=== PATIENT | female | born 1960 ===

== ENCOUNTER 2017-01-13 16:34 | Observation (INO) | payer MEDICARE, OTHER ==
[2017-01-13 16:34] VITALS: PULSE 80
[2017-01-13 16:47] VITALS: BMI 41.1
[2017-01-13] MEDS ORDERED: Levalbuterol 1.25 MG/3 ML Inhal Soln UD IH STA (16:59)
[2017-01-13] MEDS ORDERED: Ipratropium 0.02% Inhal Soln (0.5 mg/2.5 ml) UD IH STA (16:59)
[2017-01-13] MEDS ORDERED: guaiFENesin-Codeine 100-10mg/5ml Syrup (5 ml) UD PO STA (16:59)
--- NOTE | 2017-01-13 17:00 | ED PDOC ---
Arrival/HPI - General Time Seen by Provider: 01/13/17 16:43 Historian: Patient - History of Present Illness Narrative History of Present Illness (Text): 01/13/17 16:53 A 56 year old female, whose past medical history includes CABG/CAD, CHF, COPD and bipolar disorder, presents to the emergency department complaining of a productive cough for the past 4 days. Patient notes clear phlegm, significant sob primarily with cough, and post-tussive chest discomfort. Patient was seen by Dr. Daniel, who prescribed Prednisone and Augmentin with mild relief. Patient denies any fever, chills, sore throat, runy nose, nausea, vomiting, abdominal pain, urinary symptoms, shortness of breath, lower extremity swelling , headache, dizziness or any other complaints. PMD: Dr. Osorio Time/Duration: Prior to Arrival Symptom Course: Unchanged Quality: Other Context: Home Past Medical History - Provider Review Nursing Documentation Reviewed: Yes - Infectious Disease Hx of Infectious Diseases: None - Tetanus Immunization Tetanus Immunization: Unknown - Past Medical History Past Medical History: No Previous - Cardiac Hx Cardiac Disorders: Yes (CAD, CABG x 4) - Pulmonary Hx Chronic Obstructive Pulmonary Disease (COPD): Yes - Neurological Hx Neurological Disorder: No HX Cerebrovascular Accident: No Hx Seizures: No Other/Comment: left foot numbness and "sometimes" swells since having quadruple bypass sx - HEENT Hx HEENT Disorder: Yes (sinusitis) Other/Comment: pt denies vocal cord mass - Renal Hx Renal Disorder: No - Endocrine/Metabolic Hx Endocrine Disorders: Yes - Hematological/Oncological Hx Blood Disorders: Yes Hx Cancer: Yes (left lumpectomy dx 3 yrs ago) Hx Chemotherapy: No Other/Comment: pt had radiation for left breast ca. Recent discharge with blood from left breast. - Integumentary Hx Dermatological Disorder: No Other/Comment: left breast swollen painful slight redness - Musculoskeletal/Rheumatological Hx Musculoskeletal Disorders: No Hx Falls: No - Gastrointestinal Hx Gastrointestinal Disorders: Yes (hemorrhoids, obese) Hx Constipation: Yes - Genitourinary/Gynecological Hx Genitourinary Disorders: No - Psychiatric Hx Psychophysiologic Disorder: Yes Hx Anxiety: Yes Hx Bipolar Disorder: Yes Hx Depression: Yes Hx Substance Use: No - Past Surgical History Past Surgical History: No Previous - Surgical History Hx Breast Biopsy: Yes (left) Hx Coronary Artery Bypass Graft: Yes - Anesthesia Hx Anesthesia: Yes Hx Anesthesia Reactions: No Hx Malignant Hyperthermia: No - Suicidal Assessment Feels Threatened In Home Enviroment: No Family/Social History - Physician Review Nursing Documentation Reviewed: Yes Family/Social History: No Known Family HX Smoking Status: Former Smoker Hx Alcohol Use: No Hx Substance Use: No Hx Substance Use Treatment: No Allergies/Home Meds Allergies/Adverse Reactions: Allergies No Known Allergies Allergy (Verified 04/13/16 00:42) Home Medications: Home Meds Medication Instructions Recorded Confirmed Metoprolol Tartrate [Lopressor] 50 mg PO BID 07/30/11 01/13/17 Montelukast [Singulair] 10 mg PO HS 03/27/13 01/13/17 lamoTRIgine [Lamictal] 100 mg PO BID 11/07/15 01/13/17 Albuterol/Ipratropium [Duoneb 3 3 ml IH Q4H PRN 11/08/15 01/13/17 mg/0.5 mg (3 ml) UD] Fluticasone/Salmeterol [Advair 1 500 INH DAILY 11/08/15 01/13/17 500-50 Diskus] QUEtiapine [Seroquel] 100 mg PO TID 04/13/16 01/13/17 Amlodipine Besylate [Norvasc] 5 mg PO HS 01/13/17 01/13/17 Amoxicillin/Clavulanate [Augmentin 1 tab PO BID 01/13/17 01/13/17 875 MG-125 MG] Cetirizine HCl [All Day Allergy] 10 mg PO DAILY 01/13/17 01/13/17 Clonazepam [Klonopin] 0.5 mg PO TID PRN 01/13/17 01/13/17 Furosemide [Lasix] 40 mg PO DAILY 01/13/17 01/13/17 Meclizine [Antivert] 12.5 mg PO TID 01/13/17 01/13/17 Prednisone [Deltasone] 20 mg PO 01/13/17 Spironolactone [Aldactone] 25 mg PO BID 01/13/17 01/13/17 Tiotropium [place] Inhaler 1.25 mcg INH DAILY 01/13/17 01/13/17 [Spiriva Inhalation Handihaler Device] Review of Systems - Physician Review All systems were reviewed & negative as marked: Yes - Review of Systems Constitutional: absent: Fevers, Night Sweats ENT: absent: Sore Throat, Rhinorrhea Respiratory: SOB, Cough, Sputum Cardiovascular: Chest Pain (post-tussive). absent: Edema Gastrointestinal: absent: Abdominal Pain, Nausea, Vomiting Genitourinary Female: absent: Dysuria, Frequency, Hematuria Neurological: absent: Headache, Dizziness Physical Exam Vital Signs Temp Pulse Resp BP Pulse Ox 01/13/17 17:16 98.3 F 60 18 147/77 97 01/13/17 16:40 98 F 66 18 151/80 H 97 Temperature: Afebrile Blood Pressure: Normal Pulse: Regular Respiratory Rate: Normal Appearance: Positive for: Well-Appearing, Non-Toxic, Comfortable Pain Distress: None Mental Status: Positive for: Alert and Oriented X 3 - Systems Exam Head: Present: Atraumatic, Normocephalic Pupils: Present: PERRL Conjunctiva: Present: Normal Mouth: Present: Moist Mucous Membranes Pharnyx: Present: Normal. No: ERYTHEMA, EXUDATE Neck: Present: Normal Range of Motion Respiratory/Chest: Present: Clear to Auscultation, Good Air Exchange. No: Respiratory Distress, Accessory Muscle Use Cardiovascular: Present: Regular Rate and Rhythm, Normal S1, S2. No: Murmurs Abdomen: Present: Normal Bowel Sounds. No: Tenderness, Distention, Peritoneal Signs Back: Present: Normal Inspection Upper Extremity: Present: Normal Inspection. No: Cyanosis, Edema Lower Extremity: Present: Normal Inspection. No: Edema Neurological: Present: GCS=15, CN II-XII Intact, Speech Normal Skin: Present: Warm, Dry, Normal Color. No: Rashes Psychiatric: Present: Alert, Oriented x 3, Normal Insight, Normal Concentration Medical Decision Making ED Course and Treatment: 01/13/17 16:53 Impression: A 56 year old female with productive cough. Patient notes post-tussive chest discomfort. Plan: -- Chest xray -- EKG -- Labs -- Robitussin, Atrovent, Xopenex and Solumedrol -- Reassess and disposition Progress Notes: Report Date : 01/13/2017 18:41:23 Procedure: Chest xray Dictator : Rhina Navarro MD IMPRESSION: No active pulmonary disease. 01/13/17 19:28 Patient with noted history. Given steroids nebs with moderate improvement. CXR is unremarkable. Labs are showing leukocytosis with WBC at 16.5K, possibly related to prednsone use. She is already on antibiotics - will add blood cultures and switch antibiotics for copd/bronchitis. Troponin is also indeterminate, so will place on tele. Discussed with Dr. Osorio, who said to place on the hospitalist service - discussed with Dr. Donahue. - Lab Interpretations Lab Results: 01/13/17 17:22 01/13/17 17:22 Lab Results 01/13/17 17:22: Sodium 135, Potassium 3.3 L, Chloride 97 L, Carbon Dioxide 26, Anion Gap 15, BUN 32 H, Creatinine 1.2, Est GFR ( Amer) 56, Est GFR (Non- Af Amer) 46, Random Glucose 96, Calcium 10.6 H, Magnesium 1.9, Total Bilirubin 0.7, AST 28, ALT 41, Alkaline Phosphatase 104, Lactate Dehydrogenase 522, Total Creatine Kinase 281 H, CK-MB (CK-2) 2.1, CK-MB (CK-2) % Cancelled, Troponin I 0.03 D, NT-Pro-B Natriuret Pep 305, Total Protein 7.6, Albumin 4.6, Globulin 3.0, Albumin/Globulin Ratio 1.5, Lipase 520 H 01/13/17 17:22: PT 11.6, INR 1.06, APTT 30.6 01/13/17 17:22: WBC 16.5 H D, RBC 4.03, Hgb 11.9 L, Hct 35.8 L, MCV 88.8, MCH 29.5, MCHC 33.2, RDW 15.2 H, Plt Count 269, MPV 10.3, Gran % 76.9 H, Lymph % ( Auto) 14.3 L, [place] % (Auto) 6.9 H, Eos % (Auto) 1.5, Baso % (Auto) 0.4, Gran # 12.70 H, Lymph # 2.4, [facility] # 1.1 H, Eos # 0.2, Baso # 0.07 - RAD Interpretation Radiology Orders: 01/13/17 16:56 CHEST TWO VIEWS (PA/LAT) [RAD] Stat - EKG Interpretation EKG Interpretation (Text): 01/13/17 19:36 NSR @ 60 with LVH with QRS at 126 with strain pattern with more prominent ST dep laterally c/w previous on 04/13/16. Interpreted by ED Physician: Yes Type: 12 lead EKG - Medication Orders Current Medication Orders: Levofloxacin/Dextrose (Levaquin 750mg) 750 mg in 150 mls @ 100 mls/hr IVPB STAT STA Stop: 01/13/17 20:04 Last Admin: 01/13/17 19:01 Dose: 100 mls/hr eMAR Start Stop Document 01/13/17 19:01 [email or web address] (Rec: 01/13/17 19:01 [email or web address] [id number]) Intravenous Solution Start Date 01/13/17 Start Time 19:01 End Date 01/13/17 Levalbuterol HCl (Xopenex) 1.25 mg IH Q4H ARTEMIO Last Admin: 01/13/17 19:01 Dose: 1.25 mg Discontinued Medications Guaifenesin/Codeine Phosphate (Robitussin W/Codeine) 10 ml PO ONCE STA Stop: 01/13/17 17:00 Last Admin: 01/13/17 17:12 Dose: 10 ml Ipratropium [place] (Atrovent) 0.5 mg IH STAT STA Stop: 01/13/17 17:00 Last Admin: 01/13/17 17:12 Dose: 0.5 mg Levalbuterol HCl (Xopenex) 1.25 mg IH STAT STA Stop: 01/13/17 17:00 Last Admin: 01/13/17 17:12 Dose: 1.25 mg Methylprednisolone (Solu-Medrol) 125 mg IVP STAT STA Stop: 01/13/17 16:58 Last Admin: 01/13/17 17:12 Dose: 125 mg IVP Administration Document 01/13/17 17:12 OCS (Rec: 01/13/17 17:12 OCS [id number]) Charges for Administration # of IVP Administrations 1 Potassium Chloride (K-Dur 20 Meq Er Tab) 40 meq PO STAT STA Stop: 01/13/17 17:50 Last Admin: 01/13/17 17:58 Dose: 40 meq - Scribe Statement The provider has reviewed the documentation as recorded by the Lisaibjose armando Morales Provider Scribe Attestation: All medical record entries made by the Scribe were at my direction and personally dictated by me. I have reviewed the chart and agree that the record accurately reflects my personal performance of the history, physical exam, medical decision making, and the department course for this patient. I have also personally directed, reviewed, and agree with the discharge instructions and disposition. Disposition/Present on Arrival - Present on Arrival Any Indicators Present on Arrival: No History of DVT/PE: No History of Uncontrolled Diabetes: No Urinary Catheter: No History Surgical Site Infection Following: None - Disposition Have Diagnosis and Disposition been Completed?: Yes Diagnosis: Chest pain, COPD exacerbation Disposition: HOSPITALIZED Disposition Time: 18:20 Patient Plan: Observation, Telemetry Condition: FAIR
[2017-01-13 17:28] LABS: BASO # 0.07 K/mm3 (0.0-2.0); BASO % 0.4 % (0.0-3.0); EOS # 0.2 (0.0-0.7); EOS % 1.5 % (1.5-5.0); GRAN # 12.7 (1.4-6.5); GRAN % 76.9 % (50.0-68.0); HEMATOCRIT 35.8 % (36.0-48.0); LYMPH # 2.4 (1.2-3.4); LYMPH % 14.3 % (22.0-35.0); MEAN CELL VOLUME 88.8 fl (80.0-105.0); MEAN CORPUSCULAR HEMOGLOBIN 29.5 pg (25.0-35.0); MEAN CORPUSCULAR HGB CONC 33.2 g/dl (31.0-37.0); MEAN PLATELET VOLUME 10.3 fl (7.0-11.0); MONO # 1.1 (0.1-0.6); MONO % 6.9 % (1.0-6.0); RED CELL DISTRIBUTION WIDTH 15.2 % (11.5-14.5); WHITE BLOOD COUNT 16.5 10^3/ul (4.5-11.0)
[2017-01-13 17:40] LABS: INR 1.06 (0.93-1.08)
[2017-01-13 17:41] LABS: ALB/GLOB RATIO 1.5 (1.1-1.8); BILIRUBIN,TOTAL 0.7 mg/dL (0.2-1.3); CALCIUM 10.6 mg/dL (8.4-10.5); MAGNESIUM 1.9 mg/dL (1.7-2.2); PARTIAL THROMBOPLASTIN TIME 30.6 Seconds (25.1-36.5); POTASSIUM 3.3 mmol/L (3.6-5.0); TOTAL PROTEIN 7.6 g/dL (5.8-8.3)
[2017-01-13] MEDS ORDERED: Potassium Chloride 20 mEq ER Tab PO STA (17:49)
[2017-01-13 17:52] LABS: TROPONIN I 0.03 ng/mL
[2017-01-13] MEDS ORDERED: levoFLOXacin 750 mg in D5W 750 MG/150 ML BAG IVPB STA (18:35)
--- NOTE | 2017-01-13 18:42 | RAD ---
HISTORY: COMPARISON: 04/13/2016. TECHNIQUE: Chest PA and lateral FINDINGS: LINES AND TUBES: None. LUNG AND PLEURA: The lungs are well inflated and clear. HEART AND MEDIASTINUM: The heart is not enlarged. Status post CABG. The hilar and mediastinal contours are within normal limits. SKELETAL STRUCTURES: The bony structures are within normal limits for the patient's age. VISUALIZED UPPER ABDOMEN: Normal. OTHER FINDINGS: None. IMPRESSION: No active pulmonary disease.
[2017-01-13] MEDS: Levalbuterol 1.25 MG/3 ML Inhal Soln UD IH SCH (19:01)
[2017-01-13] MEDS ORDERED: Potassium Chloride 40 mEq/30 ml LIQ UD PO STA (20:30)
[2017-01-13 21:17] LABS: CHOLESTEROL 264 mg/dL (130-200)
--- NOTE | 2017-01-13 21:18 | CP.PCM.HP ---
<Maiocl Moffett - Last Filed: 01/14/17 00:51> History of Present Illness - History of Present Illness History of Present Illness: IM H&P for Hospitalist Service CC: Coughing fits and post-tussive chest pain HPI: This is a 56 yo F with PMH of CAD/Quad-bypass CABG s/p stenting, CHF, COPD, HTN, Breast Ca s/p lumpectomy and Radiation therapy, and psych hx ( including bipolar disorder) who [place] [facility] complaint of persistent productive cough and post-tussive chest pain x5 days. Patient reports initial cough as productive of green mucous and intermittent blood, but after seeing her Pulmonolgist (Dr. Daniel) 4 days ago, at which point she was started on Augmentin and Prednisone, the mucous became clear, and she denies any further hemoptysis. Currently, her only complaint is paroxysmal coughs and post- tussive chest pain, along the sternal midline. Denies shortness of breath, post -tussive emesis, sick contacts, fevers/chills, nausea/emesis, diarrhea/ constipation, or focal weakness/paresthesias. All other ROS in 12-point system review negative. PMH: As above PSH: CABG, Cardiac stents, Breast Ca lumpectomy (5 yrs prior) FHx: HTN, Breast Ca SHx: admits former tobacco (1ppd cigarettes x 20yrs, quit ~5 years ago), denies alcohol/illicits/IVDA PMD: Dr. Osorio Present on Admission - Present on Admission Any Indicators Present on Admission: No History of DVT/PE: No History of Uncontrolled Diabetes: No Urinary Catheter: No Review of Systems - Review of Systems All systems: reviewed and no additional remarkable complaints except (as per HPI ) Past Patient History - Infectious Disease Hx of Infectious Diseases: None - Tetanus Immunizations Tetanus Immunization: Unknown - Past Social History Smoking Status: Former Smoker - CARDIAC Hx Cardiac Disorders: Yes (CAD, CABG x 4) - PULMONARY Hx Chronic Obstructive Pulmonary Disease (COPD): Yes - NEUROLOGICAL Hx Neurological Disorder: No HX Cerebrovascular Accident: No Hx Seizures: No Other/Comment: left foot numbness and "sometimes" swells since having quadruple bypass sx - HEENT Hx HEENT Problems: Yes (sinusitis) Other/Comment: pt denies vocal cord mass - RENAL Hx Chronic Kidney Disease: No - ENDOCRINE/METABOLIC Hx Endocrine Disorders: Yes - HEMATOLOGICAL/ONCOLOGICAL Hx Blood Disorders: Yes Hx Cancer: Yes (left lumpectomy dx 3 yrs ago) Hx Chemotherapy: No Other/Comment: pt had radiation for left breast ca. Recent discharge with blood from left breast. - INTEGUMENTARY Hx Dermatological Problems: No Other/Comment: left breast swollen painful slight redness - MUSCULOSKELETAL/RHEUMATOLOGICAL Hx Musculoskeletal Disorders: No Hx Falls: No - GASTROINTESTINAL Hx Gastrointestinal Disorders: Yes (hemorrhoids, obese) Hx Constipation: Yes - GENITOURINARY/GYNECOLOGICAL Hx Genitourinary Disorders: No - PSYCHIATRIC Hx Psychophysiologic Disorder: Yes Hx Anxiety: Yes Hx Bipolar Disorder: Yes Hx Depression: Yes Hx Substance Use: No - SURGICAL HISTORY Hx Breast Biopsy: Yes (left) Hx Coronary Artery Bypass Graft: Yes - ANESTHESIA Hx Anesthesia: Yes Hx Anesthesia Reactions: No Hx Malignant Hyperthermia: No Meds Allergies/Adverse Reactions: Allergies Allergy/AdvReac Type Severity Reaction Status Date / Time No Known Allergies Allergy Verified 04/13/16 00:42 Physical Exam - Constitutional Appears: Well, Non-toxic, No Acute Distress, Chronically Ill - Head Exam Head Exam: ATRAUMATIC, NORMAL INSPECTION, NORMOCEPHALIC - Eye Exam Eye Exam: EOMI, Normal appearance. absent: Conjunctival injection, Scleral icterus Pupil Exam: absent: Irregular, Unequal - ENT Exam ENT Exam: Mucous Membranes Moist - Neck Exam Neck exam: Positive for: Full Rom. Negative for: Lymphadenopathy, Thyromegaly - Respiratory Exam Respiratory Exam: Chest Wall Tenderness (midline at and immediately superior to sternum/xiphoid process, statically tender but worse with coughing and/or palpation), Decreased Breath Sounds (moderately decreased breath sounds in all lopez, likely a component of body habitus), Clear to Auscultation Bilateral, Prolonged Expiratory Phase. absent: Accessory Muscle Use, Rales, Rhonchi, Wheezes, Stridor - Cardiovascular Exam Cardiovascular Exam: REGULAR RHYTHM, RRR, +S1, +S2. absent: Bradycardia, Tachycardia, Irregular Rhythm, JVD, +S4 - GI/Abdominal Exam GI & Abdominal Exam: Normal Bowel Sounds, Soft. absent: Diminished Bowel Sounds , Distended, Firm, Hyperactive Bowel Sounds, Hypoactive Bowel Sounds, Rigid, Tenderness - Extremities Exam Extremities exam: Positive for: normal inspection. Negative for: calf tenderness, joint swelling, pedal edema, tenderness - Neurological Exam Neurological exam: Alert, CN II-XII Intact, Oriented x3 - Psychiatric Exam Psychiatric exam: Normal Affect, Normal Mood - Skin Skin Exam: Dry, Intact, Normal Color, Warm Results - Vital Signs Recent Vital Signs: Last Vital Signs Temp 98.3 F 01/13/17 17:16 Pulse 60 01/13/17 17:16 Resp 18 01/13/17 17:16 BP 147/77 01/13/17 17:16 Pulse Ox 97 01/13/17 17:16 - Labs Result Diagrams: 01/13/17 17:22 01/13/17 17:22 Assessment & Plan - Assessment and Plan (Free Text) Assessment: This is a 56 yo F with PMH of CAD/Quad-bypass CABG s/p stenting, CHF, COPD, HTN, Breast Ca s/p lumpectomy and Radiation therapy, and psych hx ( including bipolar disorder) who [place] [facility] complaint of persistent productive cough and post-tussive chest pain x5 days. She is being admitted for suspected CHF exacerbation vs ACS in the setting of significant past cardiac disease. Plan: CAD/Quad-bypass CABG s/p stenting, CHF, COPD, HTN, Breast Ca s/p lumpectomy and Radiation therapy, and psych hx (including bipolar disorder) 1) Cough and post-tussive chest pain -pneumonia vs Upper respiratory infection (Viral vs bacterial) vs bronchitis vs ACS vs CHF exacerbation vs COPD exacerbation vs PE -No infiltrate or effusion notable on CXR in ED -Leukocytosis of 16.5, but was placed on steroids 4 days prior; in setting of afebrile pt without clear source of infection this leukocytosis more likely represents reactive leukocytosis 2/2 steroid use -trop 0.03 in the ED, trending 2 more q8h -EKG in ED notable for NSR at 60 bpm with QRS widening; when compared to most recent EKG from last admission (Mar 2016), appears unchanged; will repeat EKG in AM -Less likely CHF exacerbation, no fluid overload noted on CXR, BNP 305 -Reproducible chest wall tenderness, so less likely pain from ACS, more likely costochondritis from coughing spells; may be abdominal/pancreatitis component as well given Lipase 520, but no acute abdominal tenderness on palpation, no reported nausea/emesis; repeat Lipase in AM and monitor -Given recent productive cough with improved sputum on 4 days of augmentin, likely COPD exacerbation and/or upper respiratory infection -Given cancer history, concern for possible PE; D-dimer likely to be elevated already in setting of prior cancer and acute infection/chronic cough; Wells Score 3 for PE; Cr slightly elevated at 1.2, may benefit from V/Q instead of CTA , will defer to day team to decide -Started on Rocephin and Zithromax for G(-) and atypical coverage, also covers for possible COPD exacerbation -Continue Xopenex q4 micky, continue home singulair/spiriva/aldactone, continue predinsone 20mg PO daily -Tessalon Perles PRN for cough -Pulm (Dr. Daniel) consulted, appreciate all recs 2) Hx Breast Ca -s/p lumpectomy and radiation therapy 5 yrs prior (as per pt) -follows Dr. Barnett as outpt, was scheduled for appointment in office 01/14/17 , will consult 3) Hx CAD with CABG and stenting, Hx CHF -continue home metoprolol, aldactone, amlodpine, lasix 4) HTN -continue home amlodpine 5) Psych hx including bipolar -continue home Seroquel, Klonopin, and Lamictal Dispo: Telemetry obs, pending Pulm and Heme-onc assessment, pending possible CTA FEN: Heart-healthy Access: Peripheral IV Consults: Heme-onc, Pulm Ppx: Protonix for GI, SCDs for DVT Patient seen, reviewed, and discussed with attending, Dr. Donahue. Decision To Admit - Pt Status Changed To: Hospital Disposition Of: Observation - . Bed Request Type: Telemetry <Akiko Donahue - Last Filed: 01/14/17 03:02> Results - Vital Signs Recent Vital Signs: Last Vital Signs Temp 98.4 F 01/14/17 00:01 Pulse 50 L 01/14/17 02:00 Resp 20 01/14/17 00:01 BP 158/78 H 01/14/17 00:01 Pulse Ox 96 01/14/17 00:01 - Labs Result Diagrams: 01/13/17 17:22 01/13/17 17:22 Labs: Laboratory Results - last 24 hr 01/13/17 01/14/17 22:30 01:40 Troponin I 0.01 D Urine Color Yellow Urine Appearance Clear Urine pH 6.5 Ur Specific [place] 1.010 Urine Protein 100 H Urine Glucose (UA) Negative Urine Ketones Negative Urine Blood Small H Urine Nitrate Negative Urine Bilirubin Negative Urine Urobilinogen 0.2 Ur Leukocyte Esterase Trace H Urine RBC 1 - 3 Urine WBC 1 - 3 Ur Epithelial Cells 3 - 4 Urine Bacteria Few Attending/Attestation - Attestation I have personally seen and examined this patient.: Yes I have fully participated in the care of the patient.: Yes I have reviewed all pertinent clinical information: Yes Notes (Text): 01/14/17 03:00 Patient was seen when she was in the ER. Agree with history, physical examination, assessment and plan. My impressions would be: Chest pain. Dyspnea. Cough. Bronchitis. Leukocytosis. Borderline anemia. CAD. CHF. COPD. Hx Breast cancer. Hx radiation therapy. S/P CABG. Obesity. Hypokalemia. Dehydration. Elevated CK. Elevated Lipase. Family history Pancreatic cancer. Ex smoker. History . History partial hystrectomy. History lumpectomy breast. Abnormal EKG-T inversion in V5,V6. History [place]. History coronary stent placement. HTN.
[2017-01-13] MEDS: Azithromycin 500MG/NS 250ml 500 MG/250 ML BAG IVPB SCH (22:09)
[2017-01-13] MEDS ORDERED: Influenza Vaccine 60 mcg/0.5 mL SYR (4YR UP) IM ONE (22:21)
[2017-01-13] MEDS ORDERED: Pneumococcal 23-Valent Vaccine IM ONE (22:21)
[2017-01-13 22:53] LABS: PH,URINE 6.5 (4.7-8.0); URINE BILIRUBIN NEGATIVE (NEGATIVE); URINE BLOOD SMALL (NEGATIVE); URINE GLUCOSE (UA) NEGATIVE (NEGATIVE); URINE KETONE NEGATIVE (NEGATIVE); URINE LEUKOCYTE ESTERASE TRACE Leu/uL (NEGATIVE); URINE PROTEIN 100 mg/dL (<30 mg/dL); URINE UROBILINOGEN 0.2 E.U./dL (<1 E.U./dL)
[2017-01-13 23:01] LABS: URINE APPEARANCE CLEAR (CLEAR); URINE COLOR YELLOW (YELLOW)
[2017-01-13 23:12] LABS: URINE BACTERIA FEW (NEG)
[2017-01-13] MEDS: cefTRIAXone 2 GM IN NS 2 GM/100 ML BAG IVPB SCH (23:54)
[2017-01-14 00:29] VITALS: RESP 20; O2SAT 96
[2017-01-14] MEDS: Levalbuterol 1.25 MG/3 ML Inhal Soln UD IH SCH ×5 (01:00→16:12)
[2017-01-14] MEDS: Pantoprazole 40 mg EC Tab PO SCH ×2 (05:44→17:45)
[2017-01-14 06:29] LABS: BASO # 0.04 K/mm3 (0.0-2.0); BASO % 0.2 % (0.0-3.0); GRAN # 15.93 (1.4-6.5); GRAN % 88.7 % (50.0-68.0); LYMPH # 1.4 (1.2-3.4); LYMPH % 7.5 % (22.0-35.0); MEAN CORPUSCULAR HEMOGLOBIN 29.3 pg (25.0-35.0); MEAN CORPUSCULAR HGB CONC 32.5 g/dl (31.0-37.0); MEAN PLATELET VOLUME 10.2 fl (7.0-11.0); MONO # 0.6 (0.1-0.6); MONO % 3.6 % (1.0-6.0); RED CELL DISTRIBUTION WIDTH 15.3 % (11.5-14.5)
[2017-01-14 06:37] LABS: ALB/GLOB RATIO 1.5 (1.1-1.8); ALKALINE PHOSPHATASE 90 U/L (38-126); ALT/SGPT 47 U/L (7-56); AST/SGOT 26 U/L (14-36); BILIRUBIN,TOTAL 0.7 mg/dL (0.2-1.3); BLOOD UREA NITROGEN 30 mg/dL (7-21); CALCIUM 11.3 mg/dL (8.4-10.5); CARBON DIOXIDE 27 mmol/L (21-33); CHLORIDE 101 mmol/L (95-110); GFR AFRICAN-AMERICAN > 60; GLUCOSE,RANDOM 146 mg/dL (70-110); LIPASE 470 U/L (23-300); PHOSPHOROUS 2.4 mg/dL (2.5-4.5); POTASSIUM 4.1 mmol/L (3.6-5.0); SODIUM 139 mmol/L (132-148); TOTAL PROTEIN 7.7 g/dL (5.8-8.3)
[2017-01-14] MEDS ORDERED: Potassium Phosphate 3 mmol/ml Inj IV ONE (08:00)
[2017-01-14] MEDS ORDERED: Potassium Phosphate 15 MMOLE in Sodium Chloride 0.9% 250 ML IVPB ONE (08:15)
[2017-01-14] MEDS ORDERED: Albuterol-Ipratrop 3 mg / 0.5 (3 ml) UD IH PRN (08:53)
--- NOTE | 2017-01-14 08:59 | CARD ---
APPROVED REPORT EKG Measurement Heart [id number] IL 186P [id number] <Conclusion> Normal sinus rhythm LBBB STTW changes No change
--- NOTE | 2017-01-14 09:42 | RAD ---
HISTORY: cough, chest pain, f/u COMPARISON: 01/13/2017 FINDINGS: LUNGS: No active pulmonary disease. PLEURA: No significant pleural effusion identified, no pneumothorax apparent. CARDIOVASCULAR: Mild cardiomegaly. OSSEOUS STRUCTURES: Sternal wires VISUALIZED UPPER ABDOMEN: Normal. OTHER FINDINGS: None. IMPRESSION: No active disease.
[2017-01-14] MEDS ORDERED: metOLazone 2.5 MG TAB PO SCH (10:00)
[2017-01-14] MEDS ORDERED: [UNRECOGNIZED DRUG - REMARK] PO SCH (10:00)
[2017-01-14] MEDS ORDERED: metOLazone 5 MG TAB PO SCH (10:00)
[2017-01-14] MEDS ORDERED: Tiotropium 18 mcg Cap For Inhalation INH SCH (10:00)
[2017-01-14] MEDS ORDERED: Fluticasone-Salmeterol 500-50mcg Diskus INH SCH (10:00)
[2017-01-14] MEDS: Azithromycin 500MG/NS 250ml 500 MG/250 ML BAG IVPB SCH (10:21)
--- NOTE | 2017-01-14 10:36 | CP.PCM.CON ---
History of Present Illness - History of Present Illness History of Present Illness: Heme/Onc Consult Note for Zahra Rivas PGY2 Reason for consult: Hx of breast Ca This is a 56yo Female with past medical history of bipolar disorder, CAD s/p stents, CABG, CHF, COPD, HTN, breast cancer (ER+/WI+/HER2-) s/p lumpectomy and radiation who was admitted for chest pain. Patient was having productive and persistent cough which was giving her pain. Patient reports she was having cough with green sputum and congestion for [address] Daniel 4 days ago who gave her Prednisone and Augmentin. She reports feeling better since then , but has had a dry persistent cough since then. She denies hematemesis, shortness of breath, numbness/tingling, nausea/vomiting/diarrhea, fever or chills. Patient had breast cancer in L breast diagnosed in 2011. She had a lumpectomy. After this, she was having some drainage in her L breast. A biopsy was done in 2014 which showed fibro-fatty tissue. Patient is somewhat non- compliant with her medications. She has not been taking Tamoxifen as outpatient despite being (ER+/WI+/HER2-). She was supposed to have an appointment with Dr. Barnett today. She reports her L breast feels heavy, but has not had any drainage. Her last mammogram and breast ultrasound was in February 2015 which was negative for malignancy. Past medical history: bipolar disorder, CAD s/p stents, CABG, CHF, COPD, HTN, breast cancer (ER+/WI+/HER2-) s/p lumpectomy and radiation Past surgical history: L breast lumpectomy 2011 and biopsy 2014, CABG, cardiac stents Home meds: As per [facility] Allergies: NKDA Social history: Lives with family, denies EtOH or drug use. Former smoker (quit 5yrs ago) PMD: Dr. Osorio. Review of Systems - Review of Systems All systems: reviewed and no additional remarkable complaints except Review of Systems: + cough, chest pain Past Patient History - Infectious Disease Hx of Infectious Diseases: None - Tetanus Immunizations Tetanus Immunization: Unknown - Past Social History Smoking Status: Former Smoker Alcohol: None Drugs: Denies Home Situation {Lives}: With Family - CARDIAC Hx Cardiac Disorders: Yes (CAD, CABG x 4) - PULMONARY Hx Chronic Obstructive Pulmonary Disease (COPD): Yes - NEUROLOGICAL Hx Neurological Disorder: No HX Cerebrovascular Accident: No Hx Seizures: No Other/Comment: left foot numbness and "sometimes" swells since having quadruple bypass sx - HEENT Hx HEENT Problems: Yes (sinusitis) Other/Comment: pt denies vocal cord mass - RENAL Hx Chronic Kidney Disease: No - ENDOCRINE/METABOLIC Hx Endocrine Disorders: Yes - HEMATOLOGICAL/ONCOLOGICAL Hx Blood Disorders: Yes Hx Cancer: Yes (left lumpectomy dx 3 yrs ago) Hx Chemotherapy: No Other/Comment: pt had radiation for left breast ca. Recent discharge with blood from left breast. - INTEGUMENTARY Hx Dermatological Problems: No Other/Comment: left breast swollen painful slight redness - MUSCULOSKELETAL/RHEUMATOLOGICAL Hx Musculoskeletal Disorders: No Hx Falls: No - GASTROINTESTINAL Hx Gastrointestinal Disorders: Yes (hemorrhoids, obese) Hx Constipation: Yes - GENITOURINARY/GYNECOLOGICAL Hx Genitourinary Disorders: No - PSYCHIATRIC Hx Psychophysiologic Disorder: Yes Hx Anxiety: Yes Hx Bipolar Disorder: Yes Hx Depression: Yes Hx Substance Use: No - SURGICAL HISTORY Hx Breast Biopsy: Yes (left) Hx Coronary Artery Bypass Graft: Yes - ANESTHESIA Hx Anesthesia: Yes Hx Anesthesia Reactions: No Hx Malignant Hyperthermia: No Meds Allergies/Adverse Reactions: Allergies Allergy/AdvReac Type Severity Reaction Status Date / Time No Known Allergies Allergy Verified 04/13/16 00:42 - Medications Medications: Current Medications Albuterol/Ipratropium (Duoneb 3 Mg/0.5 Mg (3 Ml) Ud) 3 ml IH Q2H PRN PRN Reason: Shortness of Breath Amlodipine Besylate (Norvasc) 5 mg PO HS [facility] Last Admin: 01/13/17 22:07 Dose: 5 mg Arformoterol Tartrate (Brovana) 15 mcg IH [id number] [facility] Atorvastatin Calcium (Lipitor) 40 mg PO DIN [facility] Benzonatate (Tessalon Perles) 100 mg PO TID PRN PRN Reason: Cough Last Admin: 01/14/17 00:02 Dose: 100 mg Budesonide (Pulmicort Respules) 1 mg IH [id number] [facility] Clonazepam (Klonopin) 0.5 mg PO TID PRN; Protocol PRN Reason: Anxiety Last Admin: 01/13/17 23:22 Dose: 0.5 mg Furosemide (Lasix) 40 mg PO DAILY [facility] Ceftriaxone Sodium (Rocephin 2 Gm Ivpb) 2 gm in 100 mls @ 100 mls/hr IVPB DAILY [facility] PRN Reason: Protocol Last Admin: 01/13/17 23:54 Dose: 100 mls/hr Azithromycin (Zithromax 500mg In Ns) 500 mg in 250 mls @ 167 mls/hr IVPB DAILY [facility] PRN Reason: Protocol Last Admin: 01/13/17 22:09 Dose: 167 mls/hr Potassium Phosphate 15 mmole/ (Sodium Chloride) 255 mls @ 42.5 mls/hr IVPB ONCE ONE Stop: 01/14/17 14:14 Lamotrigine (Lamictal) 100 mg PO BID [facility] PRN Reason: Protocol Last Admin: 01/13/17 22:09 Dose: 100 mg Levalbuterol HCl (Xopenex) 1.25 mg IH Q4H [facility] Last Admin: 01/14/17 07:24 Dose: 1.25 mg Loratadine (Claritin) 10 mg PO DAILY [facility] Meclizine HCl (Antivert) 12.5 mg PO TID PRN PRN Reason: Dizziness Metolazone (Zaroxolyn) 5 mg PO DAILY [facility] Metoprolol Tartrate (Lopressor) 50 mg PO BRKDIN [facility] Montelukast Sodium (Singulair) 10 mg PO HS [facility] Last Admin: 01/13/17 22:04 Dose: 10 mg Pantoprazole Sodium (Protonix Ec Tab) 40 mg PO 0600,1600 [facility] Last Admin: 01/14/17 05:44 Dose: 40 mg Prednisone (Prednisone Tab) 20 mg PO DAILY [facility] Quetiapine Fumarate (Seroquel) 100 mg PO TID [facility] PRN Reason: Protocol Spironolactone (Aldactone) 25 mg PO BID [facility] Last Admin: 01/13/17 22:04 Dose: 25 mg Tiotropium [place] (Spiriva) 18 mcg INH DAILY [facility] Physical Exam - Constitutional Appears: No Acute Distress - Head Exam Head Exam: ATRAUMATIC, NORMAL INSPECTION, NORMOCEPHALIC - Eye Exam Eye Exam: Normal appearance, PERRL Pupil Exam: PERRL - ENT Exam ENT Exam: Mucous Membranes Moist - Respiratory Exam Respiratory Exam: Clear to Auscultation Bilateral, NORMAL BREATHING PATTERN. absent: Rales, Wheezes - Cardiovascular Exam Cardiovascular Exam: REGULAR RHYTHM, +S1, +S2. absent: Gallop, Rubs, Systolic Murmur - GI/Abdominal Exam GI & Abdominal Exam: Normal Bowel Sounds, Soft. absent: Rebound, Rigid, Tenderness - Exam Additional comments: Breast exam: L breast taut, no drainage noted, dense tissue. No distinct masses noted. Nontender. R breast within normal limits - Extremities Exam Extremities exam: Positive for: pedal edema (+ 1 bilaterally ) - Neurological Exam Neurological exam: Alert, CN II-XII Intact, Oriented x3 - Psychiatric Exam Psychiatric exam: Normal Affect, Normal Mood - Skin Skin Exam: Dry, Warm Results - Vital Signs Recent Vital Signs: Last Vital Signs Temp 98.9 F 01/14/17 06:00 Pulse 85 01/14/17 06:00 Resp 20 01/14/17 06:00 BP 153/81 H 01/14/17 06:00 Pulse Ox 96 01/14/17 06:00 - Labs Result Diagrams: 01/14/17 05:30 01/14/17 05:30 Labs: Laboratory Results - last 24 hr 01/13/17 01/14/17 01/14/17 22:30 01:40 05:30 WBC 18.0 H RBC 4.00 Hgb 11.7 L Hct 36.0 MCV 90.0 MCH 29.3 MCHC 32.5 RDW 15.3 H Plt Count 261 MPV 10.2 Gran % 88.7 H Lymph % (Auto) 7.5 L [place] % (Auto) 3.6 Eos % (Auto) 0.0 L Baso % (Auto) 0.2 Gran # 15.93 H Lymph # 1.4 [place] # 0.6 Eos # 0.0 Baso # 0.04 Sodium Potassium Chloride Carbon Dioxide Anion Gap BUN Creatinine Est GFR ( Amer) Est GFR (Non-Af Amer) Random Glucose Calcium Phosphorus Magnesium Total Bilirubin AST ALT Alkaline Phosphatase Troponin I 0.01 D Total Protein Albumin Globulin Albumin/Globulin Ratio Lipase Urine Color Yellow Urine Appearance Clear Urine pH 6.5 Ur Specific [place] 1.010 Urine Protein 100 H Urine Glucose (UA) Negative Urine Ketones Negative Urine Blood Small H Urine Nitrate Negative Urine Bilirubin Negative Urine Urobilinogen 0.2 Ur Leukocyte Esterase Trace H Urine RBC 1 - 3 Urine WBC 1 - 3 Ur Epithelial Cells 3 - 4 Urine Bacteria Few 01/14/17 05:30 WBC RBC Hgb Hct MCV MCH MCHC RDW Plt Count MPV Gran % Lymph % (Auto) [place] % (Auto) Eos % (Auto) Baso % (Auto) Gran # Lymph # [place] # Eos # Baso # Sodium 139 Potassium 4.1 Chloride 101 Carbon Dioxide 27 Anion Gap 15 BUN 30 H Creatinine 1.1 Est GFR ( Amer) > 60 Est GFR (Non-Af Amer) 51 Random Glucose 146 H Calcium 11.3 H Phosphorus 2.4 L Magnesium 2.0 Total Bilirubin 0.7 AST 26 ALT 47 Alkaline Phosphatase 90 Troponin I Total Protein 7.7 Albumin 4.6 Globulin 3.1 Albumin/Globulin Ratio 1.5 Lipase 470 H Urine Color Urine Appearance Urine pH Ur Specific [place] Urine Protein Urine Glucose (UA) Urine Ketones Urine Blood Urine Nitrate Urine Bilirubin Urine Urobilinogen Ur Leukocyte Esterase Urine RBC Urine WBC Ur Epithelial Cells Urine Bacteria Assessment & Plan - Assessment and Plan (Free Text) Assessment: This is a 56yo Female with past medical history of bipolar disorder, CAD s/p stents, CABG, CHF, COPD, HTN, breast cancer (ER+/WI+/HER2-) s/p lumpectomy and radiation who was admitted for chest pain. Patient had breast cancer in L breast diagnosed in 2011. She had a lumpectomy. After this, she was having some drainage in her L breast. A biopsy was done in 2014 which showed fibro-fatty tissue. Patient is somewhat non-compliant with her medications. She has not been taking Tamoxifen as outpatient despite being (ER+/WI+/HER2-). Plan: - Chest CT was stable and non-acute. It showed L breast thickening from post radiation therapy. R lung base showed limited fibrotic change with minimal L basilar atelectasis. No acute infiltrate, effusion, mass or lymphadenopathy seen. - Patient is requesting flu shot- she will get as outpatient once her URI as resolved. - Pt is mildly hypercalcemic- will check ionized calcium - Recommend repeat outpatient mammogram and ultrasound - Patient should follow up with Dr. Barnett as outpatient Case seen, discussed and reviewed with Dr. Barnett. Zahra Sofia PGY2 - Date & Time Date: 01/14/17 Time: 10:50
--- NOTE | 2017-01-14 10:39 | CT ---
PROCEDURE: CT Chest without contrast HISTORY: Shortness of breath h/o breast Ca COMPARISON: Chest CT without contrast 01/13/2015. TECHNIQUE: Contiguous axial images were obtained through the chest without intravenous contrast enhancement. Sagittal and coronal reconstructions were performed. Radiation dose (DLP): 990.59 mGy-cm. This CT exam was performed using one or more of the following dose reduction techniques: Automated exposure control, adjustment of the mA and/or kV according to patient size, and/or use of iterative reconstruction technique. FINDINGS: LUNGS: No acute infiltrate bilaterally. Limited fibrotic changes seen at the right lung base laterally anterior to the major fissure and near the right hemidiaphragm once again. Trace atelectasis in the left lower lobe near the left base. No definitive pulmonary mass including central airways. MEDIASTINUM: Unremarkable thoracic aorta. No aneurysm. Cardiomediastinal with extensive coronary artery calcifications once again. Main pulmonary artery unremarkable. No vascular congestion. No lymphadenopathy. PLEURA: No pleural fluid. No pneumothorax. BONES: No fracture. No destructive lesion. UPPER ABDOMEN: Grossly unremarkable. OTHER FINDINGS: Incidental left breast skin thickening likely a function of postradiation therapy in this patient history of breast cancer. IMPRESSION: Stable nonacute chest CT with limited fibrotic change at the right lung base and minimal left basilar dependent atelectasis. No acute infiltrate or significant lymphadenopathy. No pleural effusion or definitive mass. Stable cardiomegaly. Incidental left breast skin thickening likely post radiation therapy for left breast cancer. Clinically correlate.
[2017-01-14] MEDS: cefTRIAXone 2 GM IN NS 2 GM/100 ML BAG IVPB SCH (12:32)
[2017-01-14 12:36] VITALS: BP 133/67; TEMP 97.6
--- NOTE | 2017-01-14 13:21 | CARD ---
APPROVED REPORT EKG Measurement Heart [id number] DC [id number] [id number] <Conclusion> Normal sinus rhythm with 1st degree AVB LBBB STTW changes
--- NOTE | 2017-01-14 15:30 | CP.PCM.PN ---
Subjective - Date & Time of Evaluation Date of Evaluation: 01/14/17 Time of Evaluation: 10:00 - Subjective Subjective: Medicine Progress note Patient seen and examined at bedside this morning. No acute events overnight. Patient states she is feeling signifcantly better after breathing treatment. Denies current pain. Denies fevers, chills, chest pain, shortness of breath, productive cough, nausea, vomiting, diarrhea, Headaches Objective - Vital Signs/Intake and Output Vital Signs (last 24 hours): Temp Pulse Resp BP Pulse Ox 97.6 F 53 L 20 133/67 96 01/14/17 12:00 01/14/17 12:00 01/14/17 12:00 01/14/17 12:00 01/14/17 06:00 - Medications Medications: Current Medications Albuterol/Ipratropium (Duoneb 3 Mg/0.5 Mg (3 Ml) Ud) 3 ml IH Q2H PRN PRN Reason: Shortness of Breath Amlodipine Besylate (Norvasc) 5 mg PO HS [facility] Last Admin: 01/13/17 22:07 Dose: 5 mg Arformoterol Tartrate (Brovana) 15 mcg IH [id number] [facility] Atorvastatin Calcium (Lipitor) 40 mg PO DIN [facility] Benzonatate (Tessalon Perles) 100 mg PO TID PRN PRN Reason: Cough Last Admin: 01/14/17 00:02 Dose: 100 mg Budesonide (Pulmicort Respules) 1 mg IH [id number] [facility] Clonazepam (Klonopin) 0.5 mg PO TID PRN; Protocol PRN Reason: Anxiety Last Admin: 01/13/17 23:22 Dose: 0.5 mg Furosemide (Lasix) 40 mg PO DAILY [facility] Last Admin: 01/14/17 10:20 Dose: 40 mg Ceftriaxone Sodium (Rocephin 2 Gm Ivpb) 2 gm in 100 mls @ 100 mls/hr IVPB DAILY [facility] PRN Reason: Protocol Last Admin: 01/14/17 12:32 Dose: 100 mls/hr Azithromycin (Zithromax 500mg In Ns) 500 mg in 250 mls @ 167 mls/hr IVPB DAILY [facility] PRN Reason: Protocol Last Admin: 01/14/17 10:21 Dose: 167 mls/hr Lamotrigine (Lamictal) 100 mg PO BID [facility] PRN Reason: Protocol Last Admin: 01/14/17 10:20 Dose: 100 mg Levalbuterol HCl (Xopenex) 1.25 mg IH Q4H [facility] Last Admin: 01/14/17 10:49 Dose: 1.25 mg Loratadine (Claritin) 10 mg PO DAILY [facility] Last Admin: 01/14/17 10:20 Dose: 10 mg Meclizine HCl (Antivert) 12.5 mg PO TID PRN PRN Reason: Dizziness Metolazone (Zaroxolyn) 5 mg PO DAILY [facility] Last Admin: 01/14/17 10:20 Dose: 5 mg Metoprolol Tartrate (Lopressor) 50 mg PO BRKDIN [facility] Last Admin: 01/14/17 10:19 Dose: 50 mg Montelukast Sodium (Singulair) 10 mg PO HS [facility] Last Admin: 01/13/17 22:04 Dose: 10 mg Pantoprazole Sodium (Protonix Ec Tab) 40 mg PO 0600,1600 [facility] Last Admin: 01/14/17 05:44 Dose: 40 mg Prednisone (Prednisone Tab) 20 mg PO DAILY [facility] Last Admin: 01/14/17 10:19 Dose: 20 mg Quetiapine Fumarate (Seroquel) 100 mg PO TID [facility] PRN Reason: Protocol Last Admin: 01/14/17 10:20 Dose: 100 mg Spironolactone (Aldactone) 25 mg PO BID [facility] Last Admin: 01/14/17 10:20 Dose: 25 mg Tiotropium [place] (Spiriva) 18 mcg INH DAILY [facility] Last Admin: 01/14/17 10:21 Dose: 18 mcg - Labs Labs: 01/14/17 05:30 01/14/17 05:30 PT 11.6 SECONDS (9.4-12.5) 01/13/17 17:22 INR 1.06 (0.93-1.08) 01/13/17 17:22 APTT 30.6 Seconds (25.1-36.5) 01/13/17 17:22 - Constitutional Appears: Non-toxic, No Acute Distress - Head Exam Head Exam: ATRAUMATIC - Eye Exam Eye Exam: EOMI. absent: Scleral icterus - ENT Exam ENT Exam: Mucous Membranes Dry - Respiratory Exam Respiratory Exam: Decreased Breath Sounds, NORMAL BREATHING PATTERN. absent: Accessory Muscle Use, Respiratory Distress Additional comments: decreased breath sounds in left lower lung field - Cardiovascular Exam Cardiovascular Exam: +S1, +S2. absent: Bradycardia, Tachycardia, Diastolic murmur, Gallop, Murmur - GI/Abdominal Exam GI & Abdominal Exam: Soft, Normal Bowel Sounds. absent: Distended, Tenderness, Mass, Rebound - Extremities Exam Extremities Exam: Pedal Edema. absent: Calf Tenderness Additional comments: +1 pedal edema. patient states that is normal size - Neurological Exam Neurological Exam: Alert, Awake, Oriented x3 - Skin Skin Exam: Normal Color, Warm Assessment and Plan - Assessment and Plan (Free Text) Assessment: 56F PMHx of CAD, CHF, COPD, HTN, Breast Ca s/p lumpectomy and Radiation therapy , and psych hx (including bipolar disorder) with complaint of persistent productive cough and post-tussive chest pain x5 days. CHF exacerbation. Trop x3 negative CHF exacerbation vs COPD exacerbation c/s Pulm Dr. Daniel, appreciate all recs recent URI Rocephin and Zithromax Xopenex q4 micky, continue home singulair/spiriva/aldactone, continue predinsone 20mg PO daily Leukocytosis reactive 2/2 steroid use Hx Breast Ca s/p lumpectomy and radiation therapy 5 yrs prior (as per pt) outpatient mammogram and ultrasound Patient to follow up with Dr. Barnett as outpatient Hypercalcemia CT Chest negative f/u PTH, PTHr, and VitD levels no acute intervention, can f/u outpatient w/ Dr. Freedman Hx CAD with CABG and stenting, Hx CHF continue home metoprolol, aldactone, amlodpine, lasix HTN continue home amlodpine Psych hx including bipolar continue home Seroquel at night, Klonopin, and Lamictal
--- NOTE | 2017-01-14 15:52 | CP.PCM.DIS ---
<TammiepopJane baumannn - Last Filed: 01/14/17 16:31> Provider - Provider Date of Admission: 01/13/17 18:27 Attending physician: Mag Lagunas MD Time Spent in preparation of Discharge (in minutes): 45 Hospital Course - Lab Results Lab Results: Most Recent Lab Values WBC 18.0 10^3/ul (4.5-11.0) H 01/14/17 05:30 RBC 4.00 10^6/uL (3.5-6.1) 01/14/17 05:30 Hgb 11.7 g/dL (12.0-16.0) L 01/14/17 05:30 Hct 36.0 % (36.0-48.0) 01/14/17 05:30 MCV 90.0 fl (80.0-105.0) 01/14/17 05:30 MCH 29.3 pg (25.0-35.0) 01/14/17 05:30 MCHC 32.5 g/dl (31.0-37.0) 01/14/17 05:30 RDW 15.3 % (11.5-14.5) H 01/14/17 05:30 Plt Count 261 10^3/uL (120.0-450.0) 01/14/17 05:30 MPV 10.2 fl (7.0-11.0) 01/14/17 05:30 Gran % 88.7 % (50.0-68.0) H 01/14/17 05:30 Lymph % (Auto) 7.5 % (22.0-35.0) L 01/14/17 05:30 Lamb % (Auto) 3.6 % (1.0-6.0) 01/14/17 05:30 Eos % (Auto) 0.0 % (1.5-5.0) L 01/14/17 05:30 Baso % (Auto) 0.2 % (0.0-3.0) 01/14/17 05:30 Gran # 15.93 (1.4-6.5) H 01/14/17 05:30 Lymph # 1.4 (1.2-3.4) 01/14/17 05:30 Lamb # 0.6 (0.1-0.6) 01/14/17 05:30 Eos # 0.0 (0.0-0.7) 01/14/17 05:30 Baso # 0.04 K/mm3 (0.0-2.0) 01/14/17 05:30 PT 11.6 SECONDS (9.4-12.5) 01/13/17 17:22 INR 1.06 (0.93-1.08) 01/13/17 17:22 APTT 30.6 Seconds (25.1-36.5) 01/13/17 17:22 Sodium 139 mmol/L (132-148) 01/14/17 05:30 Potassium 4.1 mmol/L (3.6-5.0) 01/14/17 05:30 Chloride 101 mmol/L (95-110) 01/14/17 05:30 Carbon Dioxide 27 mmol/L (21-33) 01/14/17 05:30 Anion Gap 15 (10-20) 01/14/17 05:30 BUN 30 mg/dL (7-21) H 01/14/17 05:30 Creatinine 1.1 mg/dL (0.7-1.2) 01/14/17 05:30 Est GFR ( Amer) > 60 01/14/17 05:30 Est GFR (Non-Af Amer) 51 01/14/17 05:30 Random Glucose 146 mg/dL (70-110) H 01/14/17 05:30 Calcium 11.3 mg/dL (8.4-10.5) H 01/14/17 05:30 Phosphorus 2.4 mg/dL (2.5-4.5) L 01/14/17 05:30 Magnesium 2.0 mg/dL (1.7-2.2) 01/14/17 05:30 Total Bilirubin 0.7 mg/dL (0.2-1.3) 01/14/17 05:30 AST 26 U/L (14-36) 01/14/17 05:30 ALT 47 U/L (7-56) 01/14/17 05:30 Alkaline Phosphatase 90 U/L (38-126) 01/14/17 05:30 Lactate Dehydrogenase 522 U/L (333-699) 01/13/17 17:22 Total Creatine Kinase 281 U/L (35-230) H 01/13/17 17:22 CK-MB (CK-2) 2.1 ng/mL (0.0-3.6) 01/13/17 17:22 CK-MB (CK-2) % Cancelled 01/13/17 17:22 Troponin I 0.02 ng/mL D 01/14/17 10:00 NT-Pro-B Natriuret Pep 305 pg/mL (0-450) 01/13/17 17:22 Total Protein 7.7 g/dL (5.8-8.3) 01/14/17 05:30 Albumin 4.6 g/dL (3.0-4.8) 01/14/17 05:30 Globulin 3.1 gm/dL 01/14/17 05: Albumin/Globulin Ratio 1.5 (1.1-1.8) 01/14/17 05:30 Triglycerides 298 mg/dL (35-160) H 01/13/17 17:30 Cholesterol 264 mg/dL (130-200) H 01/13/17 17:30 LDL Cholesterol Direct 176 mg/dL (0-129) H 01/13/17 17:30 HDL Cholesterol 43 mg/dL (29-60) 01/13/17 17:30 Lipase 470 U/L (23-300) H 01/14/17 05:30 TSH 3rd Generation 0.83 mIU/mL (0.46-4.68) 01/14/17 10:00 Urine Color Yellow (YELLOW) 01/13/17 22:30 Urine Appearance Clear (CLEAR) 01/13/17 22:30 Urine pH 6.5 (4.7-8.0) 01/13/17 22:30 Ur Specific [place] 1.010 (1.005-1.035) 01/13/17 22:30 Urine Protein 100 mg/dL (<30 mg/dL) H 01/13/17 22:30 Urine Glucose (UA) Negative mg/dL (NEGATIVE) 01/13/17 22:30 Urine Ketones Negative mg/dL (NEGATIVE) 01/13/17 22:30 Urine Blood Small (NEGATIVE) H 01/13/17 22:30 Urine Nitrate Negative (NEGATIVE) 01/13/17 22:30 Urine Bilirubin Negative (NEGATIVE) 01/13/17 22:30 Urine Urobilinogen 0.2 E.U./dL (<1 E.U./dL) 01/13/17 22:30 Ur Leukocyte Esterase Trace Sade/uL (NEGATIVE) H 01/13/17 22:30 Urine RBC 1 - 3 /hpf (0-2) 01/13/17 22:30 Urine WBC 1 - 3 /hpf (0-6) 01/13/17 22:30 Ur Epithelial Cells 3 - 4 /hpf (0-5) 01/13/17 22:30 Urine Bacteria Few (NEG) 01/13/17 22:30 - Hospital Course Hospital Course: This is a 56 yo F with PMH of CAD/Quad-bypass CABG s/p stenting, CHF, COPD, HTN, Breast Ca s/p lumpectomy and Radiation therapy, and psych hx ( including bipolar disorder) who presents to [facility] with complaint of persistent productive cough and post-tussive chest pain x5 days. Patient reports initial cough as productive of green mucous and intermittent blood, but after seeing her Pulmonolgist (Dr. Daniel) 4 days ago, at which point she was started on Augmentin and Prednisone, the mucous became clear, and she denies any further hemoptysis. Currently, her only complaint is paroxysmal coughs and post- tussive chest pain, along the sternal midline. During hospital course patient received antibiotics, breathing treatment and steroids. Patient symptoms resolved. Heme/onc, cardiology, and pulmonology were consulted on this case. All recs were appreciated and cleared for discharge in stable condition. Patient to be discharged home on antibiotics, tapering dose of steroids, and a statin. Patient to follow up with PMD for status and results of hypercalcemia lab work. Discharge Exam - Head Exam Head Exam: ATRAUMATIC - Eye Exam Eye Exam: EOMI. absent: Scleral icterus - ENT Exam ENT Exam: Mucous Membranes Dry - Respiratory Exam Respiratory Exam: NORMAL BREATHING PATTERN. absent: Accessory Muscle Use, Rales , Rhonchi, Wheezes, Respiratory Distress - Cardiovascular Exam Cardiovascular Exam: +S1, +S2. absent: Bradycardia, Tachycardia, Gallop, Rubs - GI/Abdominal Exam GI & Abdominal Exam: Normal Bowel Sounds, Soft. absent: Distended, Firm, Guarding, Rigid, Tenderness - Extremities Exam Extremities exam: normal inspection - Neurological Exam Neurological exam: Alert, Oriented x3 - Psychiatric Exam Psychiatric exam: Normal Affect - Skin Skin Exam: Warm Discharge Plan - Discharge Medications Prescriptions: Atorvastatin [Lipitor] 40 mg PO DIN 14 Days tab Methylprednisolone [Medrol Dose Pack (21 tabs)] 4 mg PO ONCE #21 mg - Follow Up Plan Condition: FAIR Disposition: HOME/ ROUTINE Instructions: Chest Pain (ED) Additional Instructions: Resume Amoxicillin from home. Take medrol-dose pack steriod as directed. Follow up with Dr. Osorio your primary care doctor for status of Hypercalcemia. Follow up with Dr. Barnett for scheduled follow up. If symptoms get worse or new symptoms arise go the the emergency department. <Mag Lagunas - Last Filed: 01/14/17 18:37> Provider - Provider Date of Admission: 01/13/17 18:27 Attending physician: Mag Lagunas [place] Hospital Course - Lab Results Lab Results: Most Recent Lab Values WBC 18.0 10^3/ul (4.5-11.0) H 01/14/17 05:30 RBC 4.00 10^6/uL (3.5-6.1) 01/14/17 05:30 Hgb 11.7 g/dL (12.0-16.0) L 01/14/17 05:30 Hct 36.0 % (36.0-48.0) 01/14/17 05:30 MCV 90.0 fl (80.0-105.0) 01/14/17 05:30 MCH 29.3 pg (25.0-35.0) 01/14/17 05:30 MCHC 32.5 g/dl (31.0-37.0) 01/14/17 05:30 RDW 15.3 % (11.5-14.5) H 01/14/17 05:30 Plt Count 261 10^3/uL (120.0-450.0) 01/14/17 05:30 MPV 10.2 fl (7.0-11.0) 01/14/17 05:30 Gran % 88.7 % (50.0-68.0) H 01/14/17 05:30 Lymph % (Auto) 7.5 % (22.0-35.0) L 01/14/17 05:30 Lamb % (Auto) 3.6 % (1.0-6.0) 01/14/17 05:30 Eos % (Auto) 0.0 % (1.5-5.0) L 01/14/17 05:30 Baso % (Auto) 0.2 % (0.0-3.0) 01/14/17 05:30 Gran # 15.93 (1.4-6.5) H 01/14/17 05:30 Lymph # 1.4 (1.2-3.4) 01/14/17 05:30 Lamb # 0.6 (0.1-0.6) 01/14/17 05:30 Eos # 0.0 (0.0-0.7) 01/14/17 05:30 Baso # 0.04 K/mm3 (0.0-2.0) 01/14/17 05:30 PT 11.6 SECONDS (9.4-12.5) 01/13/17 17:22 INR 1.06 (0.93-1.08) 01/13/17 17:22 APTT 30.6 Seconds (25.1-36.5) 01/13/17 17:22 Sodium 139 mmol/L (132-148) 01/14/17 05:30 Potassium 4.1 mmol/L (3.6-5.0) 01/14/17 05:30 Chloride 101 mmol/L (95-110) 01/14/17 05:30 Carbon Dioxide 27 mmol/L (21-33) 01/14/17 05:30 Anion Gap 15 (10-20) 01/14/17 05:30 BUN 30 mg/dL (7-21) H 01/14/17 05:30 Creatinine 1.1 mg/dL (0.7-1.2) 01/14/17 05:30 Est GFR ( Amer) > 60 01/14/17 05:30 Est GFR (Non-Af Amer) 51 01/14/17 05:30 Random Glucose 146 mg/dL (70-110) H 01/14/17 05:30 Hemoglobin A1c 6.2 % (4.2-6.5) 01/14/17 10:00 Calcium 11.3 mg/dL (8.4-10.5) H 01/14/17 05:30 Phosphorus 2.4 mg/dL (2.5-4.5) L 01/14/17 05:30 Magnesium 2.0 mg/dL (1.7-2.2) 01/14/17 05:30 Total Bilirubin 0.7 mg/dL (0.2-1.3) 01/14/17 05:30 AST 26 U/L (14-36) 01/14/17 05:30 ALT 47 U/L (7-56) 01/14/17 05:30 Alkaline Phosphatase 90 U/L (38-126) 01/14/17 05:30 Lactate Dehydrogenase 522 U/L (333-699) 01/13/17 17:22 Total Creatine Kinase 281 U/L (35-230) H 01/13/17 17:22 CK-MB (CK-2) 2.1 ng/mL (0.0-3.6) 01/13/17 17:22 CK-MB (CK-2) % Cancelled 01/13/17 17:22 Troponin I 0.02 ng/mL D 01/14/17 10:00 NT-Pro-B Natriuret Pep 305 pg/mL (0-450) 01/13/17 17:22 Total Protein 7.7 g/dL (5.8-8.3) 01/14/17 05:30 Albumin 4.6 g/dL (3.0-4.8) 01/14/17 05:30 Globulin 3.1 gm/dL 01/14/17 05:30 Albumin/Globulin Ratio 1.5 (1.1-1.8) 01/14/17 05:30 Triglycerides 298 mg/dL (35-160) H 01/13/17 17:30 Cholesterol 264 mg/dL (130-200) H 01/13/17 17:30 LDL Cholesterol Direct 176 mg/dL (0-129) H 01/13/17 17:30 HDL Cholesterol 43 mg/dL (29-60) 01/13/17 17:30 Lipase 470 U/L (23-300) H 01/14/17 05:30 25-OH Vitamin D Total 26.4 NG/ML (30.0-100.0) L 01/14/17 10:00 TSH 3rd Generation 0.83 mIU/mL (0.46-4.68) 01/14/17 10:00 Urine Color Yellow (YELLOW) 01/13/17 22:30 Urine Appearance Clear (CLEAR) 01/13/17 22:30 Urine pH 6.5 (4.7-8.0) 01/13/17 22:30 Ur Specific [place] 1.010 (1.005-1.035) 01/13/17 22:30 Urine Protein 100 mg/dL (<30 mg/dL) H 01/13/17 22:30 Urine Glucose (UA) Negative mg/dL (NEGATIVE) 01/13/17:30 Urine Ketones Negative mg/dL (NEGATIVE) 01/13/17 22:30 Urine Blood Small (NEGATIVE) H 01/13/17 22:30 Urine Nitrate Negative (NEGATIVE) 01/13/17 22:30 Urine Bilirubin Negative (NEGATIVE) 01/13/17:30 Urine Urobilinogen 0.2 E.U./dL (<1 E.U./dL) 01/13/17 22:30 Ur Leukocyte Esterase Trace Sade/uL (NEGATIVE) H 01/13/17 22:30 Urine RBC 1 - 3 /hpf (0-2) 01/13/17:30 Urine WBC 1 - 3 /hpf (0-6) 01/13/17 22:30 Ur Epithelial Cells 3 - 4 /hpf (0-5) 01/13/17 22:30 Urine Bacteria Few (NEG) 01/13/17:30 Attending/Attestation - Attestation I have personally seen and examined this patient.: Yes I have fully participated in the care of the patient.: Yes I have reviewed all pertinent clinical information, including history, physical exam and plan: Yes Notes (Text): 01/14/17 18:29 56 year old female with past medical history of CAD, CHF, COPD, hypertension adn breast cancer s/p lumpectomy and radiation therapy who presented with complaint of cough with associated chest pain. She was recently seen by her behavioral scientist who prescribed her prednisone and augmentin. She was admitted and started on iv antiobiotics and steroids. Serial cardiac enzymes were negative and ACS was ruled out. Her symptoms improved. She was seen by cardiology and pulmonary. She had a CT chest ordered by her oncologist which showed no acute findings. She was incidentally found to have elevated calcium level. She admitted to taking vitamin D in recent past. PTH, PTHrp and vitamin D levels were ordered. We recommended to hold her vitamin D supplementation for now and follow up with her pmd and extension service advisor to follow up on above tests and repeat calcium level. This was conveyed to patient as well as Dr. Osorio. Overall her symptoms have improved. She is discharged home to follow up with her pmd Dr. Osorio. Continue with medrol dosepack and augmentin as per pulmonary. Follow up with Dr. Daniel. Mag Lagunas MD Hospitalist.
[2017-01-14 18:50] VITALS: PULSE 59
[2017-01-14] MEDS ORDERED: Budesonide 0.5 mg/2 ml Inhal Susp UD IH SCH (20:00)
[2017-01-14] MEDS ORDERED: Arformoterol 15 mcg/2 ml Inh Sol IH SCH (20:00)
--- NOTE | 2017-01-15 01:45 | CON ---
DATE: 01/14/2017 CARDIOLOGY CONSULTATION REASON FOR THE CONSULTATION: Followup cardiac evaluation, history of coronary artery disease, history of CABG, history of PTCA, admitted with coughing, chest pain on coughing. BRIEF CLINICAL HISTORY: This is a 56-year-old Fijian-speaking female with past medical history significant for coronary artery disease, CABG, status post PTCA, CHF, COPD, hypertension, history of breast CA status post lumpectomy, status post radiation, psych disorder, bipolar disorder, who came to the emergency with complaint of persistent cough and bringing some phlegm and also posttussive, the patient complains of chest pain. The patient initially went on Wednesday to Dr. Daniel, peripheral vascular tech with complaint of bringing green-colored phlegm. So, he gave him Augmentin, prednisone but the patient's cough did not get better, so he decided to come to the emergency room. Denies any chest pain, dyspnea on exertion. No chest pain on exertion. Denies any fevers or chills. PAST MEDICAL HISTORY: Significant for obesity, ex-alcohol abuse, noncompliance with medication, COPD, history of breast CA, status post lumpectomy, history of coronary artery disease, history of CABG in 2009. Last catheterization 08/22/2012 shows a northway triple vessel disease, left main 60% stenosis, bifurcated LAD and circumflex, LAD 100% occlusion, circumflex 80% stenosis proximally, distal 60% stenosis, RCA 100% occluded. CONTE was not used, probably damaged in harvesting and occluded. Graft as follows; SVG to OM1 patent. SVG large connected to the LAD patent. SVG to RCA patent. Ejection fraction 45%. Subsequently, the patient had a stress test in 2014 with ejection fraction 47%. The patient had a repeat stress test on 01/06/2016, shows fixed irreversible defect, ejection fraction 37% when compared from 04/19/1999, there is deterioration of LV function, but fixed defect. No reversible ischemia. The patient underwent echocardiography done on 02/15/2016 that shows ejection fraction decreased, mild tricuspid regurgitation, mild pulmonary hypertension, RV systolic pressure 36, thickened mitral valve. Denies any chest pain. Previous cardiac workup as above. Most recently echo, 02/14/2017, mild decreased LV function. Most recent stress test 01/06/2016 shows ejection fraction 37% fixed defect. Most recently, the patient had MUGA scan done on 02/18/2016 that shows ejection fraction 35%. SOCIAL HISTORY: The patient denies smoking, but used to smoke before. REVIEW OF SYSTEMS: As per HPI. CURRENT MEDICATIONS: The patient is taking at home metolazone, Lamictal, prednisone metoprolol, furosemide, clonazepam, and amlodipine. ALLERGIES: NO KNOWN DRUG ALLERGIES. PHYSICAL EXAMINATION: VITAL SIGNS: As follows; temperature afebrile, heart rate 85, blood pressure 153/81. HEENT: PERRLA. Extraocular muscles intact. NECK: Supple. No carotid bruits. No thyromegaly. CHEST: Clear to auscultation. HEART: S1 and S2 regular. ABDOMEN: Soft. EXTREMITIES: Clubbing and cyanosis negative. LABORATORY DATA: Blood workup as follows; WBC 18, hemoglobin 11.7, hematocrit 36.0, and platelet count 261. Chemistry shows sodium 139, potassium 4.0, chloride 101, carbon dioxide 37, anion gap of 15, BUN 30, and creatinine 1.1. Troponin 0.03, 0.01. EKG shows normal sinus IVCD. Most recently, stress test in 01/2000. IMPRESSION: Atypical chest pain. A 56-year-old, ex-tobacco abuse, obese female, diabetes, hypertension, hyperlipidemia, multiple admissions, admitted with cough, possible early bronchitis. No evidence of acute myocardial infarction. No evidence of acute coronary syndrome. History of bypass in 2009, triple-vessel bypass. Last catheterization in 2012, CONTE was not used, patent SVG to LAD, patent saphenous graft to the circumflex, and patent saphenous graft to RCA. Last MUGA scan shows ejection fraction of 37%. Last stress test, fixed defect in 01/2015, ejection fraction 37%. RECOMMENDATION: Aggressively treat for COPD, no evidence of acute coronary syndrome. We will discontinue telemetry. Continue broad-spectrum antibiotics, and when the patient is stable from pulmonary point of view, the patient can be discharged home. No further cardiac workup is planned at this time. We will follow as an outpatient. Interim continue beta-deborah, continue gentle diuretics, and continue other medications as per Pulmonary. Upon discharge, we will follow as outpatient. The patient's cholesterol level shows triglyceride 298, total cholesterol 264, LDL 174, lipase 470. We will put 40 mg of Lipitor. The patient is very noncompliant. Continue aspirin. Continue spironolactone, continue Lasix, continue metoprolol. Because of the cough, we will not put ELYSE inhibitors for now, but we will put as outpatient when the patient comes to office. We will add Lipitor 40 in the current regimen. We will also add TSH and hemoglobin A1c in today's blood drawn. Ponce Sawyer MD
--- NOTE | 2017-01-15 08:53 | CON ---
DATE: 01/14/2017 PULMONARY CONSULTATION REFERRING PHYSICIAN: Dr. Lagunas. REASON FOR CONSULTATION: Cough, shortness of breath, and sleep apnea syndrome. HISTORY OF PRESENT ILLNESS: This is a 56-year-old female, well known to me from office and previous admission, noncompliance with follow up medication and CPAP use, comes into the emergency room with persistent cough and some shortness of breath. No nausea. No vomiting. No diarrhea. No leg pain or leg swelling. In the Emergency Room received IV and inhaled bronchodilator. PAST MEDICAL HISTORY: Chronic obstructive lung disease, obstructive sleep apnea syndrome, hypertension, history of breast cancer, has a lumpectomy, lumbar radiculopathy, and also has a history of bipolar disorder. FAMILY HISTORY: Positive for breast cancer and hypertension. SOCIAL HISTORY: Recently stopped smoking. Denied any alcohol use. ALLERGIES: NONE KNOWN. MEDICATIONS: She is on Aldactone 25 mg twice a day, Singulair 10 mg daily,Lasix 40 mg daily, Zofran 5 mg twice a day, Klonopin 0.5 mg 3 times a day p.r.n., Lamictal 100 mg twice a day, Lipitor 40 mg daily, metoprolol tartarate 50 mg twice a day, Norvasc 5 mg at bedtime, prednisone 20 mg daily, Protonix 40 mg twice a day, Pulmicort inhaled twice a day, Rocephin 2 g daily, Seroquel 100 mg 3 times a day, Spiriva 1 capsule inhaled daily, Dexilant 100 mg 3 times a day, and Zithromax 500 mg daily. REVIEW OF SYSTEMS: Presently, no headache. No rhinitis. Cough is better. No nausea. No vomiting. No diarrhea. No leg pain or leg swelling. PHYSICAL EXAMINATION: GENERAL: Sitting at the side of the bed, having dinner. VITAL SIGNS: Temperature is 98, heart rate is 59, respiratory rate is 20, blood pressure 133/67, and pulse oximetry 96% on room air. HEENT: Moist mucous membrane. Crowded airway. NECK: Supple. No JVD. LUNGS: Have scattered rhonchi, is overall fair. HEART: S1 and S2. ABDOMEN: Soft and nontender. No organomegaly. EXTREMITIES: There is no edema. NEUROLOGICAL: Awake and alert. Follows simple commands. LABORATORY DATA: Shows hemoglobin 11.7, hematocrit 36.0, WBC 18.0, and platelets 261. INR 1.06 and PTT 31. Sodium 139, potassium 4.1, chloride 101, bicarbonate 27, BUN 30, creatinine 1.1, glucose is 146, calcium is 11.3, and phosphorus 2.4. AST 26, ALT 47, and alkaline phosphatase is 90. Troponin 0.02. Albumin is 4.6. Lipase is 470. Vitamin D is 26. TSH is 0.83. Microbiology; blood cultures have been negative. CAT scan of the chest done today, which shows stable, non-acute chest CT with limited fibrotic changes at the right lung base and minimal left basilar dependent atelectasis. Incidental finding was left breast skin thickening. IMPRESSION AND PLAN: Chronic obstructive lung disease, may have a history of gastroesophageal reflux disease, has a sleep apnea syndrome, noncompliant with continuous positive airway pressure, history of coronary artery disease, history of coronary artery bypass surgery, coronary stent, hypertension, breast cancer, and history of radiation therapy. Case discussed with Dr. Lagunas, who is the hospitalist primary medical doctor. Pulmonary point of view, she is okay, could be discharged home on tapered dose of steroids, on antibiotics. Continue gastric prophylaxis and encouraged CPAP use. Diet modification to lose weight. Ponce Daniel MD
== END 2017-01-14 18:45 | disposition home or self-care (01) ==
LOC: ED 16:34 → ERH 18:27 → 2RNO 21:03
PROVIDERS: ADMIT Internal Medicine; ATTEND Internal Medicine
DX: J44.1 Chronic obstructive pulmonary disease with (acute) exacerbation (principal); R07.89 Other chest pain; I50.9 Heart failure, unspecified; I11.0 Hypertensive heart disease with heart failure; I25.10 Atherosclerotic heart disease of native coronary artery without angina pectoris; E66.9 Obesity, unspecified; F31.9 Bipolar disorder, unspecified; F32.9 Major depressive disorder, single episode, unspecified; E78.5 Hyperlipidemia, unspecified; E11.9 Type 2 diabetes mellitus without complications; G47.33 Obstructive sleep apnea (adult) (pediatric); M54.16 Radiculopathy, lumbar region; Z85.3 Personal history of malignant neoplasm of breast; Z91.14 Patient's other noncompliance with medication regimen; Z91.19 Patient's noncompliance with other medical treatment and regimen; Z92.3 Personal history of irradiation; Z95.5 Presence of coronary angioplasty implant and graft; Z95.1 Presence of aortocoronary bypass graft; Z87.891 Personal history of nicotine dependence
CPT/HCPCS: 36415; 71010; 71020; 71250; 80053; 80061; 81001; 82306; 82330; 82550; 82553; 83036; 83519; 83615; 83690; 83735; 83880; 83970; 84100; 84443; 84484; 85025; 85610; 85730; 87040; 87086; 93005; 94640; 96374; 99285; G0378; J0456; J0696; J2930; J3480

== ENCOUNTER 2017-04-05 00:41 | Emergency (ER) | payer MEDICARE, OTHER ==
[2017-04-05 00:41] VITALS: PULSE 80; BMI 41.1
--- NOTE | 2017-04-05 01:58 | ED PDOC ---
Arrival/HPI <Ermias Carlson - Last Filed: 04/05/17 06:38> - General Historian: Patient EM Caveat: Acuity of Condition - History of Present Illness Symptom Onset: Sudden Symptom Course: Unchanged Quality: Aching, Tightness, Other (traveling down left arm to wrist) Severity Level: Moderate Activities at Onset: Rest Context: Sitting, Standing <Tawana Hua - Last Filed: 04/05/17 13:37> - General Chief Complaint: Shortness Of Breath Time Seen by Provider: 04/05/17 01:10 - History of Present Illness Narrative History of Present Illness (Text): 04/05/17 01:45 Pt is a 57 yo F c/o SOB and left arm pain s/p fall in home last week. Pt has PMHx of CHF, and HTN and states she has bipolar disorder and seizure-like events. Pt describes pain as burning in left arm, 6/10 that refers down to the wrist since fall. Denies cp, n/v/d, headache, fever chills, GIB, and sick contacts. Pt's PMD is Dr. Osorio whom she saw last for prescription refill. Pt takes percocet for pain management. Shoulder examination: strength and sensation intact bilaterally. 04/05/17 02:49 04/05/17 13:20 04/05/17 13:25 (Tawana Hua) Past Medical History - Travel History Have you recently traveled outside [place] w/in the past 3 mons?: No - Infectious Disease Hx of Infectious Diseases: None - Tetanus Immunization Tetanus Immunization: Unknown - Reproductive Menopause: Yes Currently : No - Past Medical History Past Medical History: No Previous - Cardiac Hx Cardiac Disorders: Yes (CAD, CABG x 4) Hx Congestive Heart Failure: Yes Hx Hypertension: Yes - Pulmonary Hx Chronic Obstructive Pulmonary Disease (COPD): Yes - Neurological Hx Neurological Disorder: No HX Cerebrovascular Accident: No Hx Seizures: Yes Other/Comment: left foot numbness and "sometimes" swells since having quadruple bypass sx - HEENT Hx HEENT Disorder: Yes (sinusitis) Other/Comment: pt denies vocal cord mass - Renal Hx Renal Disorder: No - Endocrine/Metabolic Hx Endocrine Disorders: Yes - Hematological/Oncological Hx Blood Disorders: Yes Hx Cancer: Yes (left lumpectomy dx 3 yrs ago) Hx Chemotherapy: No Other/Comment: pt had radiation for left breast ca. Recent discharge with blood from left breast. - Integumentary Hx Dermatological Disorder: No Other/Comment: left breast swollen painful slight redness - Musculoskeletal/Rheumatological Hx Musculoskeletal Disorders: No Hx Falls: No - Gastrointestinal Hx Gastrointestinal Disorders: Yes (hemorrhoids, obese) Hx Constipation: Yes - Genitourinary/Gynecological Hx Genitourinary Disorders: No - Psychiatric Hx Psychophysiologic Disorder: Yes Hx Anxiety: Yes Hx Bipolar Disorder: Yes Hx Depression: Yes Hx Substance Use: No - Surgical History Hx Breast Biopsy: Yes (left) Hx Coronary Artery Bypass Graft: Yes - Anesthesia Hx Anesthesia: Yes Hx Anesthesia Reactions: No Hx Malignant Hyperthermia: No - Suicidal Assessment Feels Threatened In Home Enviroment: No <Tawana Hua - Last Filed: 04/05/17 13:37> Family/Social History Family/Social History: No Known Family HX Smoking Status: Former Smoker Hx Alcohol Use: No Hx Substance Use: No Hx Substance Use Treatment: No <Tawana Hua - Last Filed: 04/05/17 13:37> Allergies/Home Meds <Ermias Carlson - Last Filed: 04/05/17 06:38> <Tawana Hua - Last Filed: 04/05/17 13:37> Allergies/Adverse Reactions: Allergies No Known Allergies Allergy (Verified 04/13/16 00:42) Home Medications: Home Meds Medication Instructions Recorded Confirmed Metoprolol Tartrate [Lopressor] 50 mg PO BID 07/30/11 01/14/17 Montelukast [Singulair] 10 mg PO HS 03/27/13 01/14/17 lamoTRIgine [Lamictal] 100 mg PO BID 11/07/15 01/14/17 Albuterol/Ipratropium [Duoneb 3 3 ml IH Q4H PRN 11/08/15 01/13/17 mg/0.5 mg (3 ml) UD] Fluticasone/Salmeterol [Advair 1 500 INH DAILY 11/08/15 01/13/17 500-50 Diskus] QUEtiapine [Seroquel] 100 mg PO TID 04/13/16 01/14/17 Amlodipine Besylate [Norvasc] 5 mg PO HS 01/13/17 01/14/17 Cetirizine HCl [All Day Allergy] 10 mg PO DAILY 01/13/17 01/13/17 Clonazepam [Klonopin] 0.5 mg PO TID PRN 01/13/17 01/14/17 Furosemide [Lasix] 40 mg PO DAILY 01/13/17 01/14/17 Meclizine [Antivert] 12.5 mg PO TID 01/13/17 01/14/17 Spironolactone [Aldactone] 25 mg PO BID 01/13/17 01/14/17 Tiotropium [place] Inhaler 1.25 mcg INH DAILY 01/13/17 01/13/17 [Spiriva Inhalation Handihaler Device] Review of Systems - Review of Systems Systems not reviewed;Unavailable: Acuity of Condition Constitutional: Normal Eyes: Normal Respiratory: SOB. absent: Normal, Cough, Sputum, Wheezing, Other Cardiovascular: Normal. absent: Chest Pain, Palpitations, Edema, Calf Pain, PETTY , Orthopnea, SY, Syncope, Other Genitourinary Female: Normal Musculoskeletal: Other (left arm pain from shoulder down to wrist). absent: Normal, Arthralgias, Back Pain, Neck Pain, Joint Swelling, Myalgias Skin: Normal. absent: Rash, Pruritis, Skin Lesions, Laceration, Abscess, Ulcer , Cellulitis, Other Neurological: Normal Psychiatric: Anxiety, Depression. absent: Normal, Suicidal Ideation, Other <Tawana Hua - Last Filed: 04/05/17 13:37> Physical Exam Vital Signs Reviewed: Yes Temperature: Afebrile Blood Pressure: Normal Pulse: Regular Respiratory Rate: Normal Appearance: Positive for: Non-Toxic, Uncomfortable. No: Well-Appearing, Comfortable, Ill-Appearing, Unkept, Cachectic, Other Pain Distress: Moderate Mental Status: Positive for: Alert and Oriented X 3 - Systems Exam Head: Present: Atraumatic, Normocephalic Pupils: Present: PERRL Extroacular Muscles: Present: EOMI Ears: Present: Normal, NORMAL TM Pharnyx: Present: Normal. No: ERYTHEMA, EXUDATE, TONSILS ENLARGED, Peritonsilar Swelling, Uvular Deviation, Muffled/Hoarse Voice, Strider, Soft Palate/Uvular Edema, Other Nose (External): Present: Atraumatic Respiratory/Chest: Present: Clear to Auscultation, Good Air Exchange. No: Respiratory Distress, Accessory Muscle Use, Wheezes, Decreased Breath Sounds, Rales, Retracting, Rhonchi, Tachypneic, Tender to Palpation, Other Cardiovascular: Present: Regular Rate and Rhythm, Normal S1, S2 Abdomen: Present: Normal Bowel Sounds. No: Tenderness, Distention, Peritoneal Signs, Rebound, Guarding, McBurney's Point Tender, Rovsing's Sign Present, Hernias, Feeding Tubes, Ostomy Tubes, Mass/Organomegaly, Scars, Other Breast/Axillary: No: Axillary Lymphad, Discoloration, Erythema, Fluctuance, Masses, Nipple Discharge, Other, Swelling, Symmetrical, Tender to Palpation Back: Present: Normal Inspection. No: CVA Tenderness, Midline Tenderness, Paraspinal Tenderness, Pain with Leg Raise, Decubitus Ulcer, Other Upper Extremity: Present: Normal Inspection, Normal ROM, NORMAL PULSES, Tenderness (left proximal arm pain radiating down to wrist) Lower Extremity: Present: Edema, NORMAL PULSES, Normal ROM, Tenderness. No: Normal Inspection, CALF TENDERNESS, Cyanosis, Ramirez's Sign, Swelling, Erythema, Deformity, Temperature Abnormalties, Neurovascularly Intact, Capillary Refill < 2 s, Other Neurological: Present: GCS=15, Speech Normal Skin: Present: Warm, Dry, Normal Color Lymphatic: No: Cervical Adenopathy, Axillary Adenopathy, Inguinal Adenopathy, Other Psychiatric: Present: Alert, Oriented x 3, Normal Insight, Normal Concentration , Anxious. No: Normal Affect, Normal Mood, Agitated, Depressed Mood, Suicidal Ideation, Homicidal Ideation, Delusional, Hallucinations, Intoxicated, Lethargic , Other <Tawana Hua L - Last Filed: 04/05/17 13:37> Vital Signs Temp Pulse Resp BP Pulse Ox 04/05/17 07:30 98 F 62 18 120/71 97 04/05/17 05:06 58 L 18 113/58 L 98 04/05/17 03:40 60 20 126/41 L 95 04/05/17 01:06 98.0 F 63 16 133/75 98 Medical Decision Making <Ermias Carlson - Last Filed: 04/05/17 06:38> - EKG Interpretation Interpreted by ED Physician: Yes (Left ventricular hypertrophy) <Tawana Hua - Last Filed: 04/05/17 13:37> ED Course and Treatment: 04/05/17 04:28 Chest xray: No acute process, as read by me. Radiology of left elbow and left shoulder: No acute process, as read by me. US lower extremity b/l: Negative, no DVT, as read by me. 04/05/17 05:40 Pt. on reevaluation states that sometimes she intermittently feels some left sided chest discomfort as well as the shoulder /arm pain.Chest discomfort is not reproducible.I disccussed in full with the pt. that given her underlying cardiac hx. it would be prudent to be admitted for further evaluation.Pt. was also made aware of her potassium level.She was supplemented.Pt. insists on leaving to follow up with her doctor.Understands in full all risks as explained.Pt to sign out AMA 04/05/17 05:50 Leaving Against Medical Advice (AMA): The patient is choosing to leave against medical advice. I have personally explained to the patient that choosing to do so may result in permanent bodily harm or . I have discussed at great length that without further evaluation and monitoring there may be unforeseen circumstances and/or deterioration causing permanent bodily harm or as a result of their choice. The patient is alert, oriented, and shows the mental capacity to make clear decisions regarding the patients health care at this time. The patient continues to wish to leave against medical advice. The patient has been advised to f/u with PMD and that they should return to the emergency room immediately if they change their mind at any time, or if their condition begins to change or worsen in any way. (Ermias Carlson) 04/05/17 02:14 Pt is a 57 yo F c/o SOB and left arm pain s/p fall in home last week with PMHx of CHF and seizures. Plan: 1. SOB/CAD/CHF panel ordered 2. Toradol 30 mg IM for pain management 3. Left shoulder and elbow XR to r/o fracture (Tawana Hua) - Lab Interpretations Lab Results: 04/05/17 01:50 04/05/17 01:50 Lab Results 04/05/17 01:50: Sodium 137, Potassium 3.1 L, Chloride 98, Carbon Dioxide 28, Anion Gap 15, BUN 19, Creatinine 0.9, Est GFR ( Amer) > 60, Est GFR (Non- Af Amer) > 60, Random Glucose 90, Calcium 10.0, Total Bilirubin 0.5, AST 34, ALT 47, Alkaline Phosphatase 85, Lactate Dehydrogenase 556, Total Creatine Kinase 121, Troponin I 0.02, NT-Pro-B Natriuret Pep 113, Total Protein 7.0, Albumin 4.2, Globulin 2.8, Albumin/Globulin Ratio 1.5 04/05/17 01:50: PT 11.2, INR 0.98 04/05/17 01:50: WBC 10.5, RBC 3.72, Hgb 11.0 L, Hct 34.2 L, MCV 91.9, MCH 29.6, MCHC 32.2, RDW 15.0 H, Plt Count 216, MPV 10.7, Gran % 72.3 H, Lymph % (Auto) 15.0 L, Sevier % (Auto) 7.7 H, Eos % (Auto) 4.7, Baso % (Auto) 0.3, Gran # 7.58 H , Lymph # 1.6, Sevier # 0.8 H, Eos # 0.5, Baso # 0.03 - RAD Interpretation Radiology Orders: 04/05/17 01:12 CHEST PORTABLE [RAD] Stat 04/05/17 01:37 DUPLEX LOWER EXTRM VEIN BILAT [US] Stat 04/05/17 02:21 SHOULDER LEFT [RAD] Stat 04/05/17 02:23 ELBOW LEFT 3 VIEWS ROUTINE [RAD] Stat - Medication Orders Current Medication Orders: Discontinued Medications Ketorolac Tromethamine (Toradol) 30 mg IVP STAT STA Stop: 04/05/17 02:25 Last Admin: 04/05/17 02:56 Dose: Ketorolac Tromethamine (Toradol) 30 mg IM STAT STA Stop: 04/05/17 02:39 Last Admin: 04/05/17 02:40 Dose: 30 mg MAR Pain Assessment Document 04/05/17 02:40 CNR (Rec: 04/05/17 02:56 CNR [id number]) Pain Reassessment Is this a pain reassessment? Yes Location Left, Right or Bilateral Left Upper or Lower Upper Pain Location Body Site Arm Description Description Constant IM Administration Charges Document 04/05/17 02:40 CNR (Rec: 04/05/17 02:56 CNR [id number]) Injection Site MAR Injection Site Right Deltoid Charges for Administration # of IM Administrations 1 Morphine Sulfate (Morphine) 4 mg IVP STAT STA Stop: 04/05/17 04:59 Last Admin: 04/05/17 05:32 Dose: 4 mg MAR Pain Assessment Document 04/05/17 05:32 CNR (Rec: 04/05/17 05:32 CNR [id number]) Pain Reassessment Is this a pain reassessment? Yes IVP Administration Document 04/05/17 05:32 CNR (Rec: 04/05/17 05:32 CNR [id number]) Charges for Administration # of IVP Administrations 1 Oxycodone/Acetaminophen (Percocet 5/325 Mg Tab) 1 tab PO STAT STA Stop: 04/05/17 04:28 Last Admin: 04/05/17 04:44 Dose: 1 tab MAR Pain Assessment Document 04/05/17 04:44 CNR (Rec: 04/05/17 04:45 CNR [id number]) Pain Reassessment Is this a pain reassessment? Yes Location Left, Right or Bilateral Left Pain Location Body Site Arm Description Description Constant Potassium Chloride (K-Dur 20 Meq Er Tab) 40 meq PO STAT STA Stop: 04/05/17 04:27 Last Admin: 04/05/17 04:44 Dose: 40 meq - PA / [employer] / Resident Statement MD/DO has reviewed & agrees with the documentation as recorded. MD/DO has examined the patient and agrees with the treatment plan. <Tawana Hua - Last Filed: 04/05/17 13:37> Disposition/Present on Arrival - Present on Arrival Any Indicators Present on Arrival: No - Disposition Have Diagnosis and Disposition been Completed?: Yes Disposition Time: 06:30 <Ermias Carlson - Last Filed: 04/05/17 06:38> - Present on Arrival Any Indicators Present on Arrival: Yes History of DVT/PE: No History of Uncontrolled Diabetes: No Urinary Catheter: No History of Decub. Ulcer: No History Surgical Site Infection Following: None - Disposition Have Diagnosis and Disposition been Completed?: No <Tawana Hua - Last Filed: 04/05/17 13:37> - Disposition Diagnosis: Chest pain, Shoulder pain, Arm pain Disposition: AGAINST MEDICAL ADVICE Condition: STABLE Discharge Instructions (ExitCare): Chest Pain (ED) Forms: [employer] ([place])
[2017-04-05 02:20] LABS: ALB/GLOB RATIO 1.5 (1.1-1.8); ALBUMIN 4.2 g/dL (3.0-4.8); ALT/SGPT 47 U/L (7-56); AST/SGOT 34 U/L (14-36); BLOOD UREA NITROGEN 19 mg/dL (7-21); GFR AFRICAN-AMERICAN > 60; GFR NON-AFRICAN AMERICAN > 60
[2017-04-05 02:25] LABS: INR 0.98 (0.93-1.08); PROTHROMBIN TIME 11.2 SECONDS (9.4-12.5)
[2017-04-05 02:27] LABS: BASO # 0.03 K/mm3 (0.0-2.0); BASO % 0.3 % (0.0-3.0); EOS # 0.5 (0.0-0.7); EOS % 4.7 % (1.5-5.0); GRAN # 7.58 (1.4-6.5); GRAN % 72.3 % (50.0-68.0); LYMPH # 1.6 (1.2-3.4); MEAN CELL VOLUME 91.9 fl (80.0-105.0); MEAN CORPUSCULAR HEMOGLOBIN 29.6 pg (25.0-35.0); MEAN CORPUSCULAR HGB CONC 32.2 g/dl (31.0-37.0); MEAN PLATELET VOLUME 10.7 fl (7.0-11.0); MONO # 0.8 (0.1-0.6); MONO % 7.7 % (1.0-6.0); RBC 3.72 10^6/uL (3.5-6.1); WHITE BLOOD COUNT 10.5 10^3/ul (4.5-11.0)
[2017-04-05 02:31] LABS: B-TYPE NATRIURETIC PEPTIDE 113 pg/mL (0-450); TROPONIN I 0.02 ng/mL
[2017-04-05] MEDS ORDERED: Potassium Chloride 20 mEq ER Tab PO STA (04:26)
[2017-04-05] MEDS ORDERED: Oxycodone/Acetaminophen 5/325 mg Tab PO STA (04:27)
[2017-04-05] MEDS ORDERED: Morphine 4 mg/ml ISec IVP STA (04:58)
[2017-04-05 05:06] VITALS: RESP 18
[2017-04-05 08:15] VITALS: BP 120/71; PULSE 62; TEMP 98; O2SAT 97
--- NOTE | 2017-04-05 09:09 | RAD ---
HISTORY: SOB COMPARISON: 01/14/2017. FINDINGS: LUNGS: The lungs are clear. PLEURA: No significant pleural effusion identified, no pneumothorax apparent. CARDIOVASCULAR: There is mild cardiomegaly. Status post CABG. OSSEOUS STRUCTURES: No significant abnormalities. VISUALIZED UPPER ABDOMEN: Normal. OTHER FINDINGS: None. IMPRESSION: No active pulmonary disease.
--- NOTE | 2017-04-05 09:15 | RAD ---
PROCEDURE: Radiographs of the Left Shoulder HISTORY: injury COMPARISON: No prior. FINDINGS: BONES: Bone alignment and mineralization are normal. No acute fracture. JOINTS: Normal. Glenohumeral and acromioclavicular joints preserved. No osteoarthritis. SOFT TISSUES: Normal. OTHER FINDINGS: None. IMPRESSION: No acute fracture or dislocation.
--- NOTE | 2017-04-05 09:26 | RAD ---
PROCEDURE: Radiographs of the left elbow. HISTORY: injury COMPARISON: No prior. FINDINGS: BONES: Normal. No fracture. JOINTS: Normal. No osteoarthritis. SOFT TISSUES: Normal. JOINT EFFUSION: None. OTHER FINDINGS: None IMPRESSION: Unremarkable radiographs of the left elbow.
--- NOTE | 2017-04-05 10:23 | CARD ---
APPROVED REPORT EKG Measurement Heart [id number] <Conclusion> RSR wt 1st degree AVB Left ventricular hypertrophy with QRS widening and repolarization abnormality Increased ST depressions V 5, 6
--- NOTE | 2017-04-05 12:55 | US ---
HISTORY: Leg pain and swelling. Evaluate for DVT PHYSICIAN(S): Cade Sanz MD. TECHNIQUE: Duplex sonography and color-flow Doppler with graded compression were used to evaluate the deep venous systems of both lower extremities. FINDINGS: The visualized deep venous systems of both lower extremities are sonographically normal and compressible. Normal wave forms and augmentation are seen. There is no sonographic evidence for deep venous thrombosis in the visualized segments of both lower extremities. IMPRESSION: No sonographic evidence for deep venous thrombosis in the visualized segments of both lower extremities.
== END 2017-04-05 07:30 | disposition left against medical advice (07) ==
LOC: ED 00:41
DX: R07.9 Chest pain, unspecified (principal); M25.512 Pain in left shoulder; M79.602 Pain in left arm; I10 Essential (primary) hypertension; Z87.891 Personal history of nicotine dependence
CPT/HCPCS: 71045; 73030; 73080; 80053; 82550; 83615; 83880; 84484; 85025; 85610; 93005; 93970; 96372; 96374; 99285; J1885; J2270

== ENCOUNTER 2017-06-19 21:40 | Inpatient (IN) | payer MEDICARE, OTHER ==
[2017-06-19 21:41] VITALS: PULSE 80; BMI 41.1
--- NOTE | 2017-06-19 22:17 | ED PDOC ---
Arrival/HPI - General Chief Complaint: Psychiatric Evaluation Time Seen by Provider: 06/19/17 22:15 Historian: Patient - History of Present Illness Narrative History of Present Illness (Text): 06/19/17 22:17 57 y/o female, pmh including htn/chf/copd, psychiatric history of bipolar, nkda , c/o feeling depressed x 2 weeks. Pt. stated that she is frustrated with her neighborhood, been complaining to the landlord, feeling depressed, no homicidal or suicidal ideation, no auditory or visual hallucination, no numbness or tingling, no rash, no other medical or psychological complaints. Past Medical History - Provider Review Nursing Documentation Reviewed: Yes - Infectious Disease Hx of Infectious Diseases: None - Tetanus Immunization Tetanus Immunization: Unknown - Past Medical History Past Medical History: No Previous - Cardiac Hx Cardiac Disorders: Yes (CAD, CABG x 4) Hx Congestive Heart Failure: Yes Hx Hypertension: Yes - Pulmonary Hx Chronic Obstructive Pulmonary Disease (COPD): Yes - Neurological Hx Neurological Disorder: No HX Cerebrovascular Accident: No Hx Seizures: Yes Other/Comment: left foot numbness and "sometimes" swells since having quadruple bypass sx - HEENT Hx HEENT Disorder: Yes (sinusitis) Other/Comment: pt denies vocal cord mass - Renal Hx Renal Disorder: No - Endocrine/Metabolic Hx Endocrine Disorders: Yes - Hematological/Oncological Hx Blood Disorders: Yes Hx Cancer: Yes (left lumpectomy dx 3 yrs ago) Hx Chemotherapy: No Other/Comment: pt had radiation for left breast ca. Recent discharge with blood from left breast. - Integumentary Hx Dermatological Disorder: No Other/Comment: left breast swollen painful slight redness - Musculoskeletal/Rheumatological Hx Musculoskeletal Disorders: No Hx Falls: No - Gastrointestinal Hx Gastrointestinal Disorders: Yes (hemorrhoids, obese) Hx Constipation: Yes - Genitourinary/Gynecological Hx Genitourinary Disorders: No - Psychiatric Hx Psychophysiologic Disorder: Yes Hx Anxiety: Yes Hx Bipolar Disorder: Yes Hx Depression: Yes Hx Substance Use: No - Past Surgical History Past Surgical History: No Previous - Surgical History Hx Breast Biopsy: Yes (left) Hx Coronary Artery Bypass Graft: Yes - Anesthesia Hx Anesthesia: Yes Hx Anesthesia Reactions: No Hx Malignant Hyperthermia: No - Suicidal Assessment Feels Threatened In Home Enviroment: No Family/Social History - Physician Review Nursing Documentation Reviewed: Yes Family/Social History: Unknown Family HX Smoking Status: Former Smoker Hx Alcohol Use: No Hx Substance Use: No Hx Substance Use Treatment: No Allergies/Home Meds Allergies/Adverse Reactions: Allergies No Known Allergies Allergy (Verified 06/20/17 03:37) Home Medications: Home Meds Medication Instructions Recorded Confirmed RX: Metoprolol Tartrate [Lopressor] 50 mg PO BID 07/30/11 06/20/17 RX: Montelukast [Singulair] 10 mg PO HS 03/27/13 06/20/17 RX: lamoTRIgine [Lamictal] 100 mg PO BID 11/07/15 06/20/17 RX: Albuterol/Ipratropium [Duoneb 3 ml IH Q4H PRN 11/08/15 06/20/17 3 mg/0.5 mg (3 ml) UD] RX: Fluticasone/Salmeterol [Advair 1 500 INH DAILY 11/08/15 06/20/17 500-50 Diskus] RX: QUEtiapine [Seroquel] 100 mg PO TID 04/13/16 06/20/17 RX: Amlodipine Besylate [Norvasc] 5 mg PO HS 01/13/17 06/20/17 RX: Cetirizine HCl [All Day 10 mg PO DAILY 01/13/17 06/20/17 Allergy] RX: Clonazepam [Klonopin] 0.5 mg PO TID PRN 01/13/17 06/20/17 RX: Furosemide [Lasix] 40 mg PO DAILY 01/13/17 06/20/17 RX: Meclizine [Antivert] 12.5 mg PO TID 01/13/17 06/20/17 RX: Spironolactone [Aldactone] 25 mg PO BID 01/13/17 06/20/17 RX: Tiotropium [place] Inhaler 1.25 mcg INH DAILY 01/13/17 06/20/17 [Spiriva Inhalation Handihaler Device] Exemestane [Aromasin] 25 mg PO DAILY 06/20/17 06/20/17 Laxative 8.5 mg PO TID 06/20/17 06/20/17 Review of Systems - Review of Systems Constitutional: absent: Fatigue, Fevers Eyes: absent: Vision Changes ENT: absent: Hearing Changes Respiratory: absent: SOB, Cough Cardiovascular: absent: Chest Pain Gastrointestinal: absent: Abdominal Pain, Nausea, Vomiting Skin: absent: Rash, Pruritis Neurological: absent: Headache Psychiatric: Depression. absent: Anxiety, Suicidal Ideation Physical Exam Vital Signs Reviewed: Yes Vital Signs Temp Pulse Resp BP Pulse Ox 06/19/17 23:50 76 18 142/80 99 06/19/17 22:49 98.4 F 88 20 142/86 99 06/19/17 21:49 97.9 F 61 18 142/66 96 Temperature: Afebrile Blood Pressure: Normal Pulse: Regular Respiratory Rate: Normal Appearance: Positive for: Well-Appearing, Non-Toxic, Comfortable Pain Distress: None Mental Status: Positive for: Alert and Oriented X 3 - Systems Exam Head: Present: Atraumatic, Normocephalic Pupils: Present: PERRL Extroacular Muscles: Present: EOMI Conjunctiva: Present: Normal Mouth: Present: Moist Mucous Membranes Neck: Present: Normal Range of Motion Respiratory/Chest: Present: Clear to Auscultation, Good Air Exchange. No: Respiratory Distress, Accessory Muscle Use, Wheezes, Retracting, Rhonchi Cardiovascular: Present: Regular Rate and Rhythm, Normal S1, S2. No: Murmurs Abdomen: Present: Normal Bowel Sounds. No: Tenderness, Distention, Peritoneal Signs Back: Present: Normal Inspection Upper Extremity: Present: Normal Inspection. No: Cyanosis, Edema Lower Extremity: Present: Normal Inspection. No: Edema Neurological: Present: GCS=15, CN II-XII Intact, Speech Normal Skin: Present: Warm, Dry, Normal Color. No: Rashes Psychiatric: Present: Alert, Oriented x 3, Normal Insight, Normal Concentration , Depressed Mood Medical Decision Making ED Course and Treatment: 06/19/17 22:35 -labs/ua/uds -ekg -cxr -PES notified -observe and reassess 06/20/17 00:03 -EKG: Sinus Bradycardia @ 57 BPM, no acute ST or T wave changes compared with previous ekgs. -Chest xray: no active disease -Labs are non-significant except K+ 3.0 (potassium chloride 20meq po ordered), wbc 12.4 (afebrile, likely stress induced) -UA show +UTI, keflex ordered -UDS show -Pt. is medically clear and stable for the PES evaluation. -Pt. evaluated by the PES Nadeem and spoke to the psychiatriast sana, request that patient needs inpatient admission for major depression, pt. agreed to be admitted. -Case discussed with Dr. Hemphill including labs/radiology result, he will put in the admission order - Lab Interpretations Lab Results: 06/19/17 22:30 06/19/17 22:30 Lab Results 06/19/17 23:00: Urine Opiates Screen Negative, Urine Methadone Screen Negative, Ur Barbiturates Screen Negative, Ur Phencyclidine Scrn Negative, Ur Amphetamines Screen Negative, U Benzodiazepines Scrn Negative, U Oth Cocaine Metabols Negative, U Cannabinoids Screen Negative 06/19/17 23:00: Urine Color Yellow, Urine Appearance Clear, Urine pH 6.0, Ur Specific [place] <= 1.005, Urine Protein Trace H, Urine Glucose (UA) Negative, Urine Ketones Negative, Urine Blood Trace-intact H, Urine Nitrate Negative, Urine Bilirubin Negative, Urine Urobilinogen 0.2, Ur Leukocyte Esterase Small H , Urine RBC 0 - 2, Urine WBC 2 - 5, Ur Epithelial Cells 1 - 3, Urine Bacteria Few 06/19/17 22:30: WBC 12.4 H, RBC 4.43, Hgb 13.2 D, Hct 40.0, MCV 90.3, MCH 29.8 , MCHC 33.0, RDW 14.3, Plt Count 223, MPV 10.3, Gran % 64.6, Lymph % (Auto) 24.1 , [place] % (Auto) 7.3 H, Eos % (Auto) 3.4, Baso % (Auto) 0.6, Gran # 8.01 H, Lymph # (Auto) 3.0, [place] # (Auto) 0.9 H, Eos # (Auto) 0.4, Baso # (Auto) 0.07 06/19/17 22:30: Alcohol, Quantitative < 10 06/19/17 22:30: Salicylates < 1 L, Acetaminophen < 10.0 L 06/19/17 22:30: Sodium 142, Potassium 3.0 L, Chloride 100, Carbon Dioxide 29, Anion Gap 16, BUN 20, Creatinine 1.1, Est GFR ( Amer) > 60, Est GFR (Non- Af Amer) 51, Random Glucose 110, Calcium 10.9 H, Total Bilirubin 0.5, AST 36, ALT 47, Alkaline Phosphatase 83, Total Protein 7.5, Albumin 4.7, Globulin 2.8, Albumin/Globulin Ratio 1.7 I have reviewed the lab results: Yes - RAD Interpretation Radiology Orders: 06/19/17 22:33 CHEST PORTABLE [RAD] Stat no active disease Zipper Setter: Radiologist - EKG Interpretation EKG Interpretation (Text): 06/19/17 22:48 -EKG: Sinus Bradycardia @ 57 BPM, no acute ST or T wave changes compared with previous ekgs. Interpreted by ED Physician: Yes Type: 12 lead EKG Comparison: Com.w/previous EKG - Medication Orders Current Medication Orders: Albuterol/Ipratropium (Duoneb 3 Mg/0.5 Mg (3 Ml) Ud) 3 ml IH Q6H PRN PRN Reason: Shortness of Breath Amlodipine Besylate (Norvasc) 5 mg PO HS [facility] Arformoterol Tartrate (Brovana) 15 mcg IH DAILY [facility] Atorvastatin Calcium (Lipitor) 40 mg PO DIN [facility] Budesonide (Pulmicort Respules) 1 mg IH DAILY [facility] Last Admin: 06/20/17 09:27 Dose: 1 mg Clonazepam (Klonopin) 0.5 mg PO Q8H PRN; Protocol PRN Reason: Anxiety Furosemide (Lasix) 40 mg PO DAILY [facility] Last Admin: 06/20/17 12:17 Dose: Home Med (Home Med) 1 unit PO DAILY [facility] Last Admin: 06/20/17 09:27 Dose: 1 unit Home Med (Home Med) 2 unit PO BID [facility] Last Admin: 06/20/17 09:27 Dose: 2 unit Lamotrigine (Lamictal) 100 mg PO BID [facility] PRN Reason: Protocol Last Admin: 06/20/17 09:26 Dose: 100 mg [place] Carbonate ([place] Carbonate) 450 mg PO BID [facility] Last Admin: 06/20/17 09:26 Dose: 450 mg Meclizine HCl (Antivert) 12.5 mg PO TID [facility] Last Admin: 06/20/17 13:08 Dose: 12.5 mg Metoprolol Tartrate (Lopressor) 50 mg PO BID [facility] Last Admin: 06/20/17 09:26 Dose: 50 mg Montelukast Sodium (Singulair) 10 mg PO HS [facility] Ekoyu-[id number] Ethyl Esters (Lovaza) 1 gm PO BID [facility] Quetiapine Fumarate (Seroquel Xr) 300 mg PO HS [facility] PRN Reason: Protocol Spironolactone (Aldactone) 25 mg PO BID [facility] Last Admin: 06/20/17 09:25 Dose: 25 mg Zaleplon (Sonata) 5 mg PO HS PRN PRN Reason: Insomnia Ziprasidone (Geodon Cap) 20 mg PO Q6H PRN; Protocol PRN Reason: Agitation Ziprasidone (Geodon Inj) 20 mg IM Q6H PRN; Protocol PRN Reason: Agitation Discontinued Medications Cephalexin Monohydrate (Keflex) 500 mg PO STAT [facility] PRN Reason: Protocol Stop: 06/20/17 00:04 Last Admin: 06/20/17 00:30 Dose: 500 mg Metolazone (Zaroxolyn) 5 mg PO DAILY [facility] Last Admin: 06/20/17 13:07 Dose: 5 mg Potassium Chloride (K-Dur 20 Meq Er Tab) 40 meq PO STAT [facility] Stop: 06/19/17 23:08 Last Admin: 06/19/17 23:15 Dose: 40 meq Potassium Chloride (K-Dur 20 Meq Er Tab) 20 meq PO ONCE ONE Stop: 06/20/17 13:41 Quetiapine Fumarate (Seroquel Xr) 300 mg PO STAT [facility] PRN Reason: Protocol Stop: 06/20/17 00:23 Last Admin: 06/20/17 00:46 Dose: 300 mg Re-Assess: Reassess Psych Meds Document 06/20/17 01:46 DCP (Rec: 06/20/17 02:25 DCP [id number]) Reassess Psych Med Effective - PA / [employer] / Resident Statement /DO has reviewed & agrees with the documentation as recorded. Disposition/Present on Arrival - Present on Arrival Any Indicators Present on Arrival: No History of DVT/PE: No History of Uncontrolled Diabetes: No Urinary Catheter: No History of Decub. Ulcer: No History Surgical Site Infection Following: None - Disposition Have Diagnosis and Disposition been Completed?: Yes Diagnosis: UTI (urinary tract infection), Hypokalemia, Major depression Disposition: HOSPITALIZED Disposition Time: 23:08 Patient Plan: Admission Patient Problems: Current Active Problems Problem Status Onset UTI (urinary tract infection) Acute Hypokalemia Acute Major depression Acute Bipolar 1 disorder Acute Condition: STABLE
[2017-06-19 22:47] LABS: BASO # 0.07 K/mm3 (0.0-2.0); BASO % 0.6 % (0.0-3.0); EOS # 0.4 (0.0-0.7); EOS % 3.4 % (1.5-5.0); GRAN # 8.01 (1.4-6.5); GRAN % 64.6 % (50.0-68.0); LYMPH % 24.1 % (22.0-35.0); MEAN CELL VOLUME 90.3 fl (80.0-105.0); MEAN CORPUSCULAR HEMOGLOBIN 29.8 pg (25.0-35.0); MEAN PLATELET VOLUME 10.3 fl (7.0-11.0); MONO # 0.9 (0.1-0.6); MONO % 7.3 % (1.0-6.0); RBC 4.43 10^6/uL (3.5-6.1); RED CELL DISTRIBUTION WIDTH 14.3 % (11.5-14.5); WHITE BLOOD COUNT 12.4 10^3/ul (4.5-11.0)
[2017-06-19 22:49] VITALS: RESP 20; O2SAT 99
[2017-06-19 22:55] LABS: HEMOGLOBIN 13.2 g/dL (12.0-16.0)
[2017-06-19 22:57] LABS: ALB/GLOB RATIO 1.7 (1.1-1.8); ALBUMIN 4.7 g/dL (3.0-4.8); ALT/SGPT 47 U/L (7-56); AST/SGOT 36 U/L (14-36); BLOOD UREA NITROGEN 20 mg/dL (7-21); CALCIUM 10.9 mg/dL (8.4-10.5); GFR AFRICAN-AMERICAN > 60; GFR NON-AFRICAN AMERICAN 51
[2017-06-19 22:58] LABS: ACETAMINOPHEN < 10.0 ug/ml (10.0-20.0); SALICYLATE < 1 mg/dL (2.0-20.0)
[2017-06-19] MEDS ORDERED: Potassium Chloride 20 mEq ER Tab PO STA (23:07)
[2017-06-19 23:26] LABS: URINE BILIRUBIN NEGATIVE (NEGATIVE); URINE BLOOD TRACE-INTACT (NEGATIVE); URINE GLUCOSE (UA) NEGATIVE (NEGATIVE); URINE LEUKOCYTE ESTERASE SMALL Leu/uL (NEGATIVE); URINE PROTEIN TRACE mg/dL (<30 mg/dL); URINE UROBILINOGEN 0.2 E.U./dL (<1 E.U./dL)
[2017-06-19 23:30] LABS: URINE APPEARANCE CLEAR (CLEAR); URINE COLOR YELLOW (YELLOW)
[2017-06-20 00:02] LABS: BARBITURATES, UR NEGATIVE (NEGATIVE); BENZODIAZEPINES, UR NEGATIVE (NEGATIVE); OPIATES, UR NEGATIVE (NEGATIVE); PHENCYCLIDINE, UR NEGATIVE (NEGATIVE)
[2017-06-20 00:16] LABS: URINE RBC 0 - 2 /hpf (0-2)
[2017-06-20 00:17] LABS: URINE BACTERIA FEW (NEG)
[2017-06-20] MEDS ORDERED: QUEtiapine 300 mg XR Tab PO STA (00:22)
--- NOTE | 2017-06-20 03:07 | PCM.BM ---
<Jacqueline Trinh C - Last Filed: 06/20/17 03:08> Treatment Plan Problems - Problems identified on initial assessmt INEFFECTIVE COPING Date Initiated: 06/20/17 Time Initiated: 02:00 Assessment reference: NA Status: Active Priority: 1 MEDICATION NON ADHERENCE Date Initiated: 06/20/17 Time Initiated: 02:00 Assessment reference: NA Status: Active Priority: 2 ALTERED SLEEP PATTERN Date Initiated: 06/20/17 Time Initiated: 02:00 Assessment reference: NA Status: Active Priority: 3 Treatment assets and liabiliti Patient Assests: cooperative, educated, insightful, motivated, self-reliant, ADL independent, negotiates basic needs, cognitively intact Patient Liabilities: live alone, financial problems, poor support system, relationship conflicts, medical problems - Milieu Protocol Maintain good personal hygiene: every other day Encourage regular showers, every shift Remind patient to perform daily oral care, every shift Assist patient to perform ADL's Maintain personal safety: every shift Educate patient to report safety concerns to staff, every shift Monitor environment for contraband/sharps Medication safety: Monitor for expected outcome, potential side effects: every shift, Assess barriers to learning: every shift, Assess readiness for medication education: every shift Family Contact Family involvement: Family/SO is involved Family contact: Patient agrees to contact Discharge/Continuing Care - Education Needs Education Needs: Patient Medication, Patient Diagnosis/Disease Process, Patient Coping Skills, Patient Placement options, Patient Activities of Daily Living, Patient Health Practices/Safety - Discharge Discharge Criteria: Tolerates medication w/o severe side effects, Free of paranoid thoughts, Normal sleep pattern, Ability to care for self <Rosette Miguel A - Last Filed: 06/20/17 08:46> - Diagnosis (1) Bipolar 1 disorder Status: Acute Interventions: 06/20/17 08:47 Psychoeducation Psychopharmacology/adjustment of medications as needed/ monitoring possible side effects Monitor blood level of mood stabilizers Evaluate pt on daily basis Compliance with medications and follow up appointments Suicide and homicide risk assessment and prevention, coping strategies, safety plan Relapse prevention Reduction of symptoms Improve functional status Family involvement As outpatient: cognitive behavioral therapy <Yin Tanner Y - Last Filed: 06/21/17 15:34> Family Contact - Outside Agency [facility] Care involvment: Information-sharing Agency contact name: [facility] Agency contact number: [phone]
[2017-06-20] MEDS ORDERED: Home Med 1 UNIT PO SCH (08:00)
[2017-06-20] MEDS ORDERED: Arformoterol 15 mcg/2 ml Inh Sol IH SCH (08:00)
[2017-06-20] MEDS ORDERED: metOLazone 5 MG TAB PO SCH (08:00)
--- NOTE | 2017-06-20 08:00 | RAD ---
HISTORY: medical clearance COMPARISON: No prior. FINDINGS: LUNGS: No active pulmonary disease. PLEURA: No significant pleural effusion identified, no pneumothorax apparent. CARDIOVASCULAR: No radiographic findings to suggest acute or significant cardiovascular disease. Incidental Finding(s): Postoperative changes related to sternotomy. OSSEOUS STRUCTURES: No significant abnormalities. VISUALIZED UPPER ABDOMEN: Normal. OTHER FINDINGS: None. IMPRESSION: No active disease. No significant interval change compared to the prior examination(s). Concordant results with the preliminary interpretation rendered by the emergency department physician procedure.
[2017-06-20 08:37] LABS: GLUCOSE,FASTING 117 mg/dL (65-110); HDL CHOLESTEROL 42 mg/dL (29-60)
[2017-06-20 08:48] LABS: LDL CHOLESTEROL 110 mg/dL (0-129)
[2017-06-20] MEDS: Lithium Carbonate ER Tab 450 MG PO SCH ×2 (09:26→16:27)
[2017-06-20] MEDS: EXEMESTANE 25 MG PO SCH (09:27)
[2017-06-20] MEDS: KRISS PO SCH ×2 (09:27→16:24)
[2017-06-20] MEDS: Budesonide 0.5 mg/2 ml Inhal Susp UD IH SCH (09:27)
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
[2017-06-20 12:11] LABS: BASO # 0.05 K/mm3 (0.0-2.0); BASO % 0.6 % (0.0-3.0); EOS # 0.4 (0.0-0.7); EOS % 4.8 % (1.5-5.0); GRAN # 5.3 (1.4-6.5); HEMOGLOBIN 12.6 g/dL (12.0-16.0); LYMPH # 2.1 (1.2-3.4); LYMPH % 25.3 % (22.0-35.0); MEAN CELL VOLUME 91.7 fl (80.0-105.0); MEAN CORPUSCULAR HEMOGLOBIN 29.9 pg (25.0-35.0); MEAN CORPUSCULAR HGB CONC 32.6 g/dl (31.0-37.0); MEAN PLATELET VOLUME 10.4 fl (7.0-11.0); MONO # 0.4 (0.1-0.6); MONO % 5.3 % (1.0-6.0); RBC 4.21 10^6/uL (3.5-6.1); RED CELL DISTRIBUTION WIDTH 14.7 % (11.5-14.5); WHITE BLOOD COUNT 8.3 10^3/ul (4.5-11.0)
[2017-06-20 12:18] LABS: ALB/GLOB RATIO 1.5 (1.1-1.8); ALBUMIN 4.1 g/dL (3.0-4.8); ALT/SGPT 41 U/L (7-56); AST/SGOT 28 U/L (14-36); BLOOD UREA NITROGEN 19 mg/dL (7-21); CALCIUM 11.2 mg/dL (8.4-10.5); GFR AFRICAN-AMERICAN > 60; GFR NON-AFRICAN AMERICAN 57
[2017-06-20] MEDS ORDERED: Potassium Chloride 20 mEq ER Tab PO ONE ×2 (13:40→16:15)
--- NOTE | 2017-06-20 14:59 | CARD ---
APPROVED REPORT EKG Measurement Heart [id number] <Conclusion> Sinus bradycardia with 1st degree AV block Left ventricular hypertrophy with QRS widening and repolarization abnormality Abnormal ECG
[2017-06-20] MEDS: Omega-3-Acid Ethyl Esters 1 GM Cap PO SCH (16:11)
[2017-06-20] MEDS: QUEtiapine 300 mg XR Tab PO SCH (21:57)
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
--- NOTE | 2017-06-21 04:13 | CON ---
DATE: PULMONARY CONSULTATION REFERRING PHYSICIAN: Rosette Miguel MD REASON FOR CONSULTATION: Chronic obstructive lung disease, obstructive sleep apnea syndrome. HISTORY OF PRESENT ILLNESS: This is a 57-year-old female with multiple medical issues including obstructive sleep apnea syndrome, chronic obstructive lung disease, history of hypertension, has bipolar disorder, been feeling frustrated, been depressed, denying any suicidal ideation, comes into emergency room, admitted to Psychiatry unit. She is sitting up in a chair, feels okay. Mild cough and shortness breath. No nausea, no vomiting, no diarrhea, no leg pain, no leg swelling. PAST MEDICAL HISTORY: Coronary artery disease, history of coronary bypass surgery, congestive heart failure, hypertension, chronic obstructive lung disease, obstructive sleep apnea syndrome, history of recurrent sinusitis, history of breast cancer requiring lumpectomy in the past, also had a radiation therapy to the breast, history of hemorrhoids, anxiety disorder. SOCIAL HISTORY: Stopped smoking. Denies any alcohol use. FAMILY HISTORY: No cardiopulmonary disease reported. ALLERGIES: NONE KNOWN. MEDICATIONS: She is on Aldactone 25 mg twice a day, Antivert 12.5 mg three times a day, Brovana inhaled twice a day, albuterol/Atrovent nebulizer every 6 hours p.r.n., Geodon 20 mg every 6 hours p.r.n., Geodon 20 mg IV every 6 hours p.r.n, clonazepam 0.5 mg every 8 hours p.r.n., Lamictal 100 mg twice a day, Lasix 40 mg daily, Lipitor 40 mg daily, lithium carbonate 450 mg twice a day, metoprolol tartrate 50 mg twice a day, Lovaza 1 g twice a day, Norvasc 5 mg daily, Pulmicort inhaled twice a day, Seroquel 300 mg at bedtime, Singulair 10 mg daily, Sonata 5 mg at bedtime p.r.n. REVIEW OF SYSTEMS: No headache, no rhinitis, not much cough, short of breath with exertion. No chest pain. No nausea, vomiting, diarrhea, leg pain or leg swelling. PHYSICAL EXAMINATION GENERAL: Sitting in a chair, in no acute distress. VITAL SIGNS: Temperature is 98, heart rate 62, respiratory rate is 20, blood pressure 134/67, pulse ox 99% room air. HEENT: Moist mucous membrane. Crowded airway. Mallampati score is 4. NECK: Supple. No JVD. LUNGS: Have a prolonged expiratory phase. No wheezing. HEART: S1 and S2. ABDOMEN: Soft, nontender, no organomegaly. EXTREMITIES: No edema. NEUROLOGIC: Awake and alert. Follows simple commands. LABORATORY DATA: Shows hemoglobin 12.6, hematocrit 38.6, WBC 8.3, platelet count is 192. Sodium 140, potassium 3.1, chloride 103, bicarbonate 27, BUN 19, creatinine 1.0, glucose 117, calcium 11.2, AST 28, ALT 41, alk phos is 74. Albumin is 4.1. Cholesterol is 197. TSH 4.06. Drug screen is negative. IMPRESSION AND PLAN: Bipolar disorder with depression episode, chronic obstructive lung disease, obstructive sleep apnea syndrome, diabetes, hypertension, coronary artery disease. Pulmonary point of view, continue inhaled bronchodilator. Keep head at [address] her on CPAP 8 cm while sleeping. Gastric prophylaxis. Fall precaution. Thank you and we will follow with you. Ponce Daniel MD
[2017-06-21 06:41] LABS: HEMOGLOBIN 13.1 g/dL (12.0-16.0); MEAN CELL VOLUME 91.1 fl (80.0-105.0); MEAN CORPUSCULAR HEMOGLOBIN 29.8 pg (25.0-35.0); MEAN CORPUSCULAR HGB CONC 32.8 g/dl (31.0-37.0); MEAN PLATELET VOLUME 10.1 fl (7.0-11.0); RBC 4.39 10^6/uL (3.5-6.1); RED CELL DISTRIBUTION WIDTH 14.5 % (11.5-14.5); WHITE BLOOD COUNT 8.1 10^3/ul (4.5-11.0)
[2017-06-21 07:12] LABS: ALB/GLOB RATIO 1.5 (1.1-1.8); ALBUMIN 4.1 g/dL (3.0-4.8); ALT/SGPT 42 U/L (7-56); AST/SGOT 28 U/L (14-36); BLOOD UREA NITROGEN 20 mg/dL (7-21); GFR AFRICAN-AMERICAN > 60; GFR NON-AFRICAN AMERICAN 57
[2017-06-21] MEDS ORDERED: Arformoterol 15 mcg/2 ml Inh Sol IH SCH ×2 (08:00)
[2017-06-21] MEDS: Budesonide 0.5 mg/2 ml Inhal Susp UD IH SCH (08:31)
[2017-06-21] MEDS: Omega-3-Acid Ethyl Esters 1 GM Cap PO SCH ×2 (09:21→17:47)
[2017-06-21] MEDS: Lithium Carbonate ER Tab 450 MG PO SCH ×2 (09:21→17:46)
[2017-06-21] MEDS: EXEMESTANE 25 MG PO SCH (09:23)
[2017-06-21] MEDS: KRISS PO SCH ×2 (09:23→17:48)
--- NOTE | 2017-06-21 14:59 | PN ---
DATE: SUBJECTIVE: I saw her sitting out of bed to lunch room, eating her breakfast. She is in good spirit. She slept well. She has no complaints. She says when she is going to leave Psychiatry. She is on Aldactone, Antivert, Brovana, DuoNebs, Geodon, Klonopin, Lamictal, Lasix, Lipitor, [place], Lopressor, Lovaza, Norvasc, Seroquel, Singulair and Sonata. PHYSICAL EXAMINATION: VITAL SIGNS: She has a 97.9 temperature, 63 pulse, 109/53 blood pressure, 20 respiratory rate. HEENT: Head is atraumatic. LABORATORY DATA: She has 8.1 white count, 13.1 hemoglobin, 40 hematocrit with 190 platelets. Sodium 141, potassium is up to 3.4, better I will give her potassium today, BUN 20, creatinine 1, GFR is 67, sugar is 111. Calcium is 11, still very high. AST is 28, ALT is 42, alkaline phosphatase 69, total protein 6.9. On her medications, she is on no vitamins and I could see no calcium. I am going to call Endocrinology to get their opinion of the elevated calcium that she has. We are going to check her labs tomorrow. Continue aggressive treatment and care by Psychiatry. Zach Madera DO [facility]ven
--- NOTE | 2017-06-21 15:25 | PCM.PYCHPN ---
Psychiatric Progress Note - Psychiatric Progress Note Patient seen today, length of contact: 30min Patient Chief Complaint: "I know you feel that I am crazy..." Problems Identified/Issues Discussed: Suicide/ homicide prevention, past psychiatric h/o, current psychiatric symptoms , medical problems, risk/benefits and alternatives of medications, medications compliance, coping strategies, substance abuse h/o, relapse prevention, importance of follow up with psychiatrist and therapist, discharge plan. Medical Problems: left lumpectomy dx 3 yrs ago, COPD, HTN, high cholesterol, CHF, seizures, constipation, CAD, CABG x 4, electrolyte disbalance, UTI?, was called , but did not reply, was consulted, Dr. Daniel for COPD. Diagnostic Results: 06/21/17 06:15 06/21/17 06:15 Lab Results 06/21/17 06:15: Sodium 141, Potassium 3.4 L, Chloride 102, Carbon Dioxide 27, Anion Gap 15, BUN 20, Creatinine 1.0, Est GFR ( Amer) > 60, Est GFR (Non- Af Amer) 57, Random Glucose 111 H, Calcium 11.0 H, Total Bilirubin 1.3, AST 28, ALT 42, Alkaline Phosphatase 69, Total Protein 6.9, Albumin 4.1, Globulin 2.8, Albumin/Globulin Ratio 1.5 06/21/17 06:15: WBC 8.1, RBC 4.39, Hgb 13.1, Hct 40.0, MCV 91.1, MCH 29.8, MCHC 32.8, RDW 14.5, Plt Count 190, MPV 10.1 06/20/17 07:50: Sodium 140, Potassium 3.1 L, Chloride 103, Carbon Dioxide 27, Anion Gap 14, BUN 19, Creatinine 1.0, Est GFR ( Amer) > 60, Est GFR (Non- Af Amer) 57, Random Glucose 117 H, Calcium 11.2 H, Total Bilirubin 0.7, AST 28, ALT 41, Alkaline Phosphatase 74, Total Protein 6.7, Albumin 4.1, Globulin 2.7, Albumin/Globulin Ratio 1.5 06/20/17 07:50: WBC 8.3 D, RBC 4.21, Hgb 12.6, Hct 38.6, MCV 91.7, MCH 29.9, MCHC 32.6, RDW 14.7 H, Plt Count 192, MPV 10.4, Gran % 64.0, Lymph % (Auto) 25.3 , [place] % (Auto) 5.3, Eos % (Auto) 4.8, Baso % (Auto) 0.6, Gran # 5.30, Lymph # ( Auto) 2.1, [place] # (Auto) 0.4, Eos # (Auto) 0.4, Baso # (Auto) 0.05 06/20/17 07:00: [place] 0.7 06/20/17 07:00: RPR Nonreactive 06/20/17 07:00: TSH 3rd Generation 4.06 06/20/17 07:00: Fasting Glucose 117 H, Triglycerides 289 H, Cholesterol 197, LDL Cholesterol Direct 110, HDL Cholesterol 42 06/19/17 23:00: Urine Opiates Screen Negative, Urine Methadone Screen Negative, Ur Barbiturates Screen Negative, Ur Phencyclidine Scrn Negative, Ur Amphetamines Screen Negative, U Benzodiazepines Scrn Negative, U Oth Cocaine Metabols Negative, U Cannabinoids Screen Negative 06/19/17 23:00: Urine Color Yellow, Urine Appearance Clear, Urine pH 6.0, Ur Specific [place] <= 1.005, Urine Protein Trace H, Urine Glucose (UA) Negative, Urine Ketones Negative, Urine Blood Trace-intact H, Urine Nitrate Negative, Urine Bilirubin Negative, Urine Urobilinogen 0.2, Ur Leukocyte Esterase Small H , Urine RBC 0 - 2, Urine WBC 2 - 5, Ur Epithelial Cells 1 - 3, Urine Bacteria Few 06/19/17 22:30: WBC 12.4 H, RBC 4.43, Hgb 13.2 D, Hct 40.0, MCV 90.3, MCH 29.8 , MCHC 33.0, RDW 14.3, Plt Count 223, MPV 10.3, Gran % 64.6, Lymph % (Auto) 24.1 , [place] % (Auto) 7.3 H, Eos % (Auto) 3.4, Baso % (Auto) 0.6, Gran # 8.01 H, Lymph # (Auto) 3.0, [place] # (Auto) 0.9 H, Eos # (Auto) 0.4, Baso # (Auto) 0.07 06/19/17 22:30: Alcohol, Quantitative < 10 06/19/17 22:30: Salicylates < 1 L, Acetaminophen < 10.0 L 06/19/17 22:30: Sodium 142, Potassium 3.0 L, Chloride 100, Carbon Dioxide 29, Anion Gap 16, BUN 20, Creatinine 1.1, Est GFR ( Amer) > 60, Est GFR (Non- Af Amer) 51, Random Glucose 110, Calcium 10.9 H, Total Bilirubin 0.5, AST 36, ALT 47, Alkaline Phosphatase 83, Total Protein 7.5, Albumin 4.7, Globulin 2.8, Albumin/Globulin Ratio 1.7 Vital Signs Temp Pulse Resp BP Pulse Ox 06/21/17 09:22 69 109/53 L 06/21/17 09:21 109/53 L 06/21/17 07:36 97.9 F 63 20 109/53 L 06/21/17 06:01 97.9 F 81 20 112/61 06/20/17 21:56 142/72 06/20/17 16:00 66 134/67 06/20/17 07:52 99.3 F 67 20 102/47 L 06/20/17 02:47 98.2 F 62 20 140/64 06/20/17 01:36 20 06/19/17 23:50 76 18 142/80 99 06/19/17 22:49 98.4 F 88 20 142/86 99 06/19/17 21:49 97.9 F 61 18 142/66 96 DSM 5 Symptoms Update: shortly pt is 57 y/o female, with reported h/o bipolar disorder, r/o schizoaffective disorder, pt denied h/o suicidal attempts, lives alone in senior citizen building for the past year, has two grown daughters, does not work, on disability, attends to [facility], multiple medical issues including htn/chf/copd, came to the ED yesterday for evaluation of worsening of depression, paranoia, pt c/o "feeling not safe in apartment", pt was taking medications sporadically, pt presented to be in distress in ED, was offered admission to the psychiatric inpatient unit and was admitted for meds adjustment and further evaluation and stabilization . Please see initial evaluation for more detailed information Pt was seen at the morning time at the treatment team meeting, patient presented with fair personal hygiene, at the same time patient is guarded, paranoid, in the middle of the conversation patient said "I know all of you think that I am crazy". Patient asked why the day of admission is June 20 and was not able to comprehend the fact that patient came to the hospital on June 19 and was admitted to the psychiatric inpatient unit on June 20. pt presented with circumstantial and tangential thought process. Pt reports having a neighbors on the left, right, and above her are harassing her, she reported them to the housing administration, and now pt feels "my neighbours are angry at me", when asked how she knows "they do not say hello to me", then pt said "my dog, I have Yorkie, always bark, that is why I know that they are doing something outside..." PT reports her neighbors are angry and retaliating against her, pt hearing noises as if someone was dragging furniture in her apartment. pt got offended when this health underwriter educated pt about psychosis, pt said that everything what she reports is true. so far patient tolerates medications well, no side effects observed or reported , aims 0, no EPS. Patient wanted to be discharged immediately, this health underwriter asked patient to submit 48 hour notice, patient was not able to understand the process of 48hr notice, seems to be irritable, angry, started to cry. Impression: DSM 5 Diagnosis: r/o schizoaffective disorder, bipolar type r/o PTSD Medication Change: Yes Medical Record Reviewed: Yes Consults ordered or reviewed: Medical consult appreciated that pulmonology consult appreciated. Please see notes for more detailed information Mental Status Examination - Cognitive Function Orientation: Person, Place, Situation, Time Attention: Poor Concentration: Poor Association: Loose Fund of Knowledge: Poor - Mood Mood: Depressed, Anxious - Affect Affect: Constricted - Formal Thought Process Formal Thought Process: Hallucinations, Delusions, Paranoia, Circumstantial - Suicidal Ideation Suicidal Ideation: No - Homicidal Ideation Homicidal Ideation: No Goal/Treatment Plan - Goal/Treatment Plan Need for Continued Stay: Remain at risks for inpatient hospitalization, Severe depression anxiety, Discharge may exacerbated symptoms, Severe functional impairment Progress Toward Problem(s) and Goals/Treatment Plan: milieu/structure/supportive therapy all medical meds will be continued lamoTRIgine [Lamictal] 100 mg PO BID will be continued for mood stabilization and seizures QUEtiapine XL, it will be less sedative and 300mg will be given at hs for psychosis and mood stabilization Clonazepam [Klonopin] 0.5 mg PO TID PRN will be continued pt will be seen by for UTI and electrolyte disbalance evaluation appreciated Family involvement Follow up on labs Will monitor closely Pt was educated about risk/benefits and alternatives of medications, coping strategies (safety plan, suicide prevention), relapse prevention, importance of follow up with psychiatrist and therapist, stay away from drugs/alcohol/smoking Estimated Date of D/C: 06/25/17 (we'll monitor closely)
[2017-06-21] MEDS: Tmp-Smz 800 mg-160 mg DS Tab PO SCH (17:47)
--- NOTE | 2017-06-21 20:09 | PN ---
DATE: 06/21/2017 PULMONARY PROGRESS NOTE REFERRING PHYSICIAN: Rosette Miguel MD. SUBJECTIVE: She is sitting in the common room with group therapy. Night was unremarkable. Refused to use CPAP. No headache. No rhinitis. No cough. No nausea. No vomiting, diarrhea, leg pain, leg swelling. OBJECTIVE: GENERAL: In no acute distress. VITAL SIGNS: Temp is 98, heart rate is 63, respiratory rate is 20, blood pressure 122/67, pulse ox is 99% on room air. HEENT: Moist mucous membrane. Crowded airway. NECK: Supple. No JVD. LUNGS: Have a fair airflow with few rhonchi. HEART: S1 and S2. ABDOMEN: Soft, nontender. No organomegaly. EXTREMITIES: There is no edema. NEUROLOGICAL: Awake, alert. Follows simple command. LABORATORY DATA: Shows hemoglobin 13.1, hematocrit 40.0, WBC 8.1, platelet is 190. Sodium 141, potassium 3.4, chloride 102, bicarbonate 27, BUN 20, creatinine 1.0, glucose 111, calcium is 11, AST 28, ALT 42, alk phos is 69, albumin is 4.1. MEDICATIONS: She is on spironolactone 25 mg twice day, meclizine 12.5 mg three times a day, Bactrim double strength 1 tab twice a day, Brovana inhaled daily, DuoNeb every 6 hours p.r.n., Geodon 20 mg IM every 6 hours p.r.n. for agitation, clonazepam 0.5 mg every 8 hours p.r.n., Lamictal is 100 mg twice a day, Lasix 40 mg daily, Lipitor 40 mg daily, lithium carbonate 450 mg twice a day, metoprolol tartrate 50 mg twice a day, Lovaza 1 g twice a day, Norvasc 5 mg daily, Pulmicort inhaled twice a day, Seroquel SR 300 mg at bedtime, Singulair 10 mg at bedtime, Sonata 5 mg at bedtime p.r.n. IMPRESSION AND PLAN: Bipolar disorder with depression episode, chronic obstructive lung disease, obstructive sleep apnea syndrome, diabetes, hypertension, coronary artery disease. I spoke to the patient's nurse. Encouraged the patient to use continuous positive airway pressure, bilevel positive airway pressure especially while on sedative. Keep head at 45 degrees. Gastric prophylaxis. Bronchodilator. Fall precaution. Thank you and we will follow with you. Ponce Daniel MD
[2017-06-21] MEDS: QUEtiapine 300 mg XR Tab PO SCH (21:22)
--- NOTE | 2017-06-22 00:49 | CON ---
DATE: ENDOCRINOLOGY CONSULTATION LOCATION: Room 518, Psychiatry. HISTORY OF PRESENT ILLNESS: This is a 57-year-old female with known history of hypertension and dyslipidemia and significant chronic schizoaffective disorder, presenting here with major depression and is being evaluated for closer psychiatric evaluation and management. She is also referred now for evaluation of her of persistent hypercalcemia as noted thereof. PAST MEDICAL HISTORY: As mentioned above, history of hypertension and dyslipidemia with significant coronary artery disease and a previous coronary artery bypass graft surgery involving four vessels as noted. History of previous admissions for congestive heart failure and currently on cardiac medications as noted. History of left breast carcinoma and underwent a lumpectomy followed by radiation therapy about 3 years ago. History of seizure disorder, previously on anti-seizure medications as noted. She also admits of a prior transient ischemic event with no residual weakness. History of chronic obstructive lung disease, also history of chronic schizoaffective disorder with previous admissions for generalized anxiety and depression. FAMILY HISTORY: Positive for hypertension and heart disease. SOCIAL HISTORY: Patient has supportive family. No known substance use. REVIEW OF SYSTEMS: As mentioned above. Admits to generalized body weakness with easy fatigability and tiredness and suboptimal energy level. Also admits to dizziness and lightheadedness with some bifrontal headaches, worse in the last few days prior to admission. No chest pains or palpitations or PND. Her oral intake, however, remains variable with nausea, dyspepsia and habitual constipation. PHYSICAL EXAMINATION: GENERAL: Average-built female, in no apparent distress. VITAL SIGNS: Blood pressure of 140/80, pulse of 70 beats per minute regular, temperature 98, respirations 20, height is 5 feet 4 inches, weight is 240 pounds. HEENT: Head normocephalic. Eyes anicteric with pink conjunctivae. Funduscopy not possible at this time. Ears, nose and throat otherwise normal. NECK: Supple. Thyroid gland is normal in size. No carotid bruits or cervical adenopathy. CARDIOPULMONARY: Some adynamic precordium. S1, S2 is rapid and regular. LUNGS: Clear to auscultation. ABDOMEN: Flat, soft with positive bowel sounds. EXTREMITIES: No peripheral edema. Pulses are +2 bilaterally. LABORATORY DATA: Her chemistry showed a BUN of 20, sodium 141, potassium 3.4, chloride 102, CO2 27, glucose 111, creatinine 1.0. Her calcium level is 11.0 with albumin level of 4.1. TSH is 4.06. ASSESSMENT: This is a 57-year-old female with persistent hypercalcemia and the possibility always of whether we are dealing with a parathyroid versus non parathyroid etiology has to be ascertained at this time as noted. The most common cause of hyperglycemia in this age category is primary hyperparathyroidism as noted. However, with a significant history of breast carcinoma, we have to exclude the possibility of whether we are dealing with the so called osteolytic versus humoral hypercalcemia of malignancy causing the hypercalcemia at this time. PLAN OF MANAGEMENT: As discussed with the patient and staff, we will obtain a comprehensive hormonal profile to include a parathyroid hormone intact level and also a parathyroid hormone related peptide to exclude any underlying malignancy related etiology of hypercalcemia. We will also obtain a serum phosphorus and magnesium level and do a comprehensive thyroid study with a T4 and TSH level as ordered. We will also do the cancer markers to include a CA 27-29 and a CEA level as ordered. We will follow and advise accordingly. Tiffany Fam MD
[2017-06-22 08:10] LABS: ALB/GLOB RATIO 1.5 (1.1-1.8); ALBUMIN 4.3 g/dL (3.0-4.8); CALCIUM 10.8 mg/dL (8.4-10.5)
[2017-06-22 08:26] LABS: T4 4.2 ug/dL (5.5-11.0)
[2017-06-22 08:26] LABS: HEMOGLOBIN 13.5 g/dL (12.0-16.0); MEAN CELL VOLUME 90.5 fl (80.0-105.0); MEAN CORPUSCULAR HEMOGLOBIN 29.7 pg (25.0-35.0); MEAN CORPUSCULAR HGB CONC 32.8 g/dl (31.0-37.0); MEAN PLATELET VOLUME 10.5 fl (7.0-11.0); RBC 4.55 10^6/uL (3.5-6.1); RED CELL DISTRIBUTION WIDTH 14.3 % (11.5-14.5); WHITE BLOOD COUNT 7.8 10^3/ul (4.5-11.0)
[2017-06-22] MEDS: Budesonide 0.5 mg/2 ml Inhal Susp UD IH SCH (08:55)
[2017-06-22] MEDS: EXEMESTANE 25 MG PO SCH (09:23)
[2017-06-22] MEDS: KRISS PO SCH ×2 (09:23→18:04)
[2017-06-22] MEDS: Tmp-Smz 800 mg-160 mg DS Tab PO SCH ×2 (09:24→18:02)
[2017-06-22] MEDS: Omega-3-Acid Ethyl Esters 1 GM Cap PO SCH ×2 (09:25→18:06)
[2017-06-22] MEDS: Lithium Carbonate ER Tab 450 MG PO SCH ×2 (09:25→18:01)
[2017-06-22] MEDS ORDERED: Potassium Chloride 20 mEq ER Tab PO ONE (09:49)
--- NOTE | 2017-06-22 14:57 | PN ---
DATE: ENDOCRINOLOGY FOLLOWUP NOTE LOCATION: Room 518, Psychiatry. SUBJECTIVE: This is a 57-year-old female with major depressive disorder on the background of underlying chronic schizoaffective disorder, now being followed closely in the Psychiatric Unit and is also being followed from the metabolic viewpoint for recent diagnosis of hypercalcemia as noted thereof. She has underlying left breast carcinoma with a prior radiation therapy as noted. Her latest chemistries showed a BUN of 26, sodium 140, potassium 3.3, chloride 99, CO2 of 31, glucose 113, and creatinine 1.2. Her calcium level is 10.8 mg/dL with an albumin level of 4.3. Her thyroid study shows a T4 of 4.2 with a TSH of 2.72. ASSESSMENT: This is a 57-year-old female with persistent hypercalcemia and the possibility of underlying primary hyperparathyroidism we have excluded at this time and we are awaiting the hormonal assays as ordered. Moreover, because of the significant history of left breast carcinoma with prior radiation therapy and lumpectomy, we also to exclude a non-parathyroid etiology versus humoral hypercalcemia of malignancy or osteolytic-related hypercalcemia of malignancy, especially with a history of breast carcinoma. We will await the reports of hormonal assays, which were just drawn this morning and will be sent out to a reference lab as noted. We will obtain serial chemistries and supplement accordingly as needed. We will follow. Tiffany Fam MD
--- NOTE | 2017-06-22 15:08 | PN ---
DATE: SUBJECTIVE: I saw her in her room. She is feeling better. She is overall improving mentally. She tells me she had depression, hypertension, asthma, COPD, CHF and UTI possibly. OBJECTIVE VITAL SIGNS: She has 98 temperature, 69 pulse, 96/63 blood pressure, 20 respiratory rate. HEENT: Head is atraumatic, normocephalic. HEART: Regular rate. LUNGS: Decreased breath sounds, but clear. ABDOMEN: Soft, obese, nontender. EXTREMITIES: No edema. LABORATORY DATA: She had a urine that showed small leukocytes, a few bacteria. Her white count is down to 7.8, hemoglobin 13.5, hematocrit 41.2, platelets of 195. She has 140 sodium, potassium 3.3 and I have given her potassium today. BUN 26, she is to drink more water; creatinine 1.2, GFR is 46, sugar is 113, calcium is 7.8 and getting better, phosphorus 3.8. AST is 29, ALT is 50, alkaline phosphatase 56, total protein 7.2. ASSESSMENT AND PLAN: She is being seen by Endocrinology, Psychiatry, Pulmonology. She has bipolar, depression, chronic obstructive pulmonary disease. Continue aggressive treatment and care. We will check her labs tomorrow and replace potassium. Zach Madera DO MTDD
--- NOTE | 2017-06-22 16:00 | PCM.PYCHPN ---
Psychiatric Progress Note - Psychiatric Progress Note Patient seen today, length of contact: 30min Patient Chief Complaint: "I feel much better" Problems Identified/Issues Discussed: Suicide/ homicide prevention, past psychiatric h/o, current psychiatric symptoms , medical problems, risk/benefits and alternatives of medications, medications compliance, coping strategies, substance abuse h/o, relapse prevention, importance of follow up with psychiatrist and therapist, discharge plan. Medical Problems: left lumpectomy dx 3 yrs ago, COPD, HTN, high cholesterol, CHF, seizures, constipation, CAD, CABG x 4, electrolyte disbalance, UTI?, was called , but did not reply, was consulted, Dr. Daniel for COPD. Diagnostic Results: 06/21/17 06:15 06/21/17 06:15 Lab Results 06/21/17 06:15: Sodium 141, Potassium 3.4 L, Chloride 102, Carbon Dioxide 27, Anion Gap 15, BUN 20, Creatinine 1.0, Est GFR ( Amer) > 60, Est GFR (Non- Af Amer) 57, Random Glucose 111 H, Calcium 11.0 H, Total Bilirubin 1.3, AST 28, ALT 42, Alkaline Phosphatase 69, Total Protein 6.9, Albumin 4.1, Globulin 2.8, Albumin/Globulin Ratio 1.5 06/21/17 06:15: WBC 8.1, RBC 4.39, Hgb 13.1, Hct 40.0, MCV 91.1, MCH 29.8, MCHC 32.8, RDW 14.5, Plt Count 190, MPV 10.1 06/20/17 07:50: Sodium 140, Potassium 3.1 L, Chloride 103, Carbon Dioxide 27, Anion Gap 14, BUN 19, Creatinine 1.0, Est GFR ( Amer) > 60, Est GFR (Non- Af Amer) 57, Random Glucose 117 H, Calcium 11.2 H, Total Bilirubin 0.7, AST 28, ALT 41, Alkaline Phosphatase 74, Total Protein 6.7, Albumin 4.1, Globulin 2.7, Albumin/Globulin Ratio 1.5 06/20/17 07:50: WBC 8.3 D, RBC 4.21, Hgb 12.6, Hct 38.6, MCV 91.7, MCH 29.9, MCHC 32.6, RDW 14.7 H, Plt Count 192, MPV 10.4, Gran % 64.0, Lymph % (Auto) 25.3 , [place] % (Auto) 5.3, Eos % (Auto) 4.8, Baso % (Auto) 0.6, Gran # 5.30, Lymph # ( Auto) 2.1, [place] # (Auto) 0.4, Eos # (Auto) 0.4, Baso # (Auto) 0.05 06/20/17 07:00: [place] 0.7 06/20/17 07:00: RPR Nonreactive 06/20/17 07:00: TSH 3rd Generation 4.06 06/20/17 07:00: Fasting Glucose 117 H, Triglycerides 289 H, Cholesterol 197, LDL Cholesterol Direct 110, HDL Cholesterol 42 06/19/17 23:00: Urine Opiates Screen Negative, Urine Methadone Screen Negative, Ur Barbiturates Screen Negative, Ur Phencyclidine Scrn Negative, Ur Amphetamines Screen Negative, U Benzodiazepines Scrn Negative, U Oth Cocaine Metabols Negative, U Cannabinoids Screen Negative 06/19/17 23:00: Urine Color Yellow, Urine Appearance Clear, Urine pH 6.0, Ur Specific [place] <= 1.005, Urine Protein Trace H, Urine Glucose (UA) Negative, Urine Ketones Negative, Urine Blood Trace-intact H, Urine Nitrate Negative, Urine Bilirubin Negative, Urine Urobilinogen 0.2, Ur Leukocyte Esterase Small H , Urine RBC 0 - 2, Urine WBC 2 - 5, Ur Epithelial Cells 1 - 3, Urine Bacteria Few 06/19/17 22:30: WBC 12.4 H, RBC 4.43, Hgb 13.2 D, Hct 40.0, MCV 90.3, MCH 29.8 , MCHC 33.0, RDW 14.3, Plt Count 223, MPV 10.3, Gran % 64.6, Lymph % (Auto) 24.1 , [place] % (Auto) 7.3 H, Eos % (Auto) 3.4, Baso % (Auto) 0.6, Gran # 8.01 H, Lymph # (Auto) 3.0, [place] # (Auto) 0.9 H, Eos # (Auto) 0.4, Baso # (Auto) 0.07 06/19/17 22:30: Alcohol, Quantitative < 10 06/19/17 22:30: Salicylates < 1 L, Acetaminophen < 10.0 L 06/19/17 22:30: Sodium 142, Potassium 3.0 L, Chloride 100, Carbon Dioxide 29, Anion Gap 16, BUN 20, Creatinine 1.1, Est GFR ( Amer) > 60, Est GFR (Non- Af Amer) 51, Random Glucose 110, Calcium 10.9 H, Total Bilirubin 0.5, AST 36, ALT 47, Alkaline Phosphatase 83, Total Protein 7.5, Albumin 4.7, Globulin 2.8, Albumin/Globulin Ratio 1.7 Vital Signs Temp Pulse Resp BP Pulse Ox 06/21/17 09:22 69 109/53 L 06/21/17 09:21 109/53 L 06/21/17 07:36 97.9 F 63 20 109/53 L 06/21/17 06:01 97.9 F 81 20 112/61 06/20/17 21:56 142/72 06/20/17 16:00 66 134/67 06/20/17 07:52 99.3 F 67 20 102/47 L 06/20/17 02:47 98.2 F 62 20 140/64 06/20/17 01:36 20 06/19/17 23:50 76 18 142/80 99 06/19/17 22:49 98.4 F 88 20 142/86 99 06/19/17 21:49 97.9 F 61 18 142/66 96 DSM 5 Symptoms Update: shortly pt is 57 y/o female, with reported h/o bipolar disorder, r/o schizoaffective disorder, pt denied h/o suicidal attempts, lives alone in senior citizen building for the past year, has two grown daughters, does not work, on disability, attends to [facility], multiple medical issues including htn/chf/copd, came to the ED yesterday for evaluation of worsening of depression, paranoia, pt c/o "feeling not safe in apartment", pt was taking medications sporadically, pt presented to be in distress in ED, was offered admission to the psychiatric inpatient unit and was admitted for meds adjustment and further evaluation and stabilization . Please see initial evaluation for more detailed information Pt was seen In her room today, patient presented very well, patient was less paranoid, less depressed, less suspicious, patient was forthcoming with information, ", I FEEL BETTER, BEFORE COMING TO THE HOSPITAL I WAS FEELING VERY SCARED AND DEPRESSED, BUT NOW you CAN SEE THAT I AM DOING FINE". THOUGHT PROCESS SEEMS TO BE MORE COHERENT AND GOAL DIRECTED, AFFECT WAS MUCH BRIGHTER, PATIENT WAS CALM, CORPORATIVE, AND SOCIALLY APPROPRIATE. so far patient tolerates medications well, no side effects observed or reported , aims 0, no EPS. as per nursing report, patient compliant with the medications, no behavioral incident, patient is pleasant and corporative. Impression: DSM 5 Diagnosis: r/o schizoaffective disorder, bipolar type r/o PTSD Medication Change: Yes Medical Record Reviewed: Yes Consults ordered or reviewed: Medical consult appreciated that pulmonology consult appreciated. Please see notes for more detailed information Mental Status Examination - Cognitive Function Orientation: Person, Place, Situation, Time Attention: Poor (improvement) Concentration: Poor (improvement) Association: Loose (improvement) Fund of Knowledge: Poor - Mood Mood: Depressed ("I feel much better"), Anxious (I'm less anxious) - Affect Affect: Constricted (but more reactive and mood congruent) - Speech Speech: Appropriate - Formal Thought Process Formal Thought Process: Hallucinations (denied), Delusions (improvement), Paranoia (improvement) - Suicidal Ideation Suicidal Ideation: No - Homicidal Ideation Homicidal Ideation: No Goal/Treatment Plan - Goal/Treatment Plan Need for Continued Stay: Remain at risks for inpatient hospitalization, Severe depression anxiety, Discharge may exacerbated symptoms, Severe functional impairment Progress Toward Problem(s) and Goals/Treatment Plan: milieu/structure/supportive therapy all medical meds will be continued lamoTRIgine [Lamictal] 100 mg PO BID will be continued for mood stabilization and seizures QUEtiapine XL, it will be less sedative and 300mg will be given at hs for psychosis and mood stabilization Clonazepam [Klonopin] 0.5 mg PO TID PRN will be continued pt as seen for UTI and electrolyte disbalance evaluation appreciated Family involvement Follow up on labs Will monitor closely Pt was educated about risk/benefits and alternatives of medications, coping strategies (safety plan, suicide prevention), relapse prevention, importance of follow up with psychiatrist and therapist, stay away from drugs/alcohol/smoking Estimated Date of D/C: 06/23/17 (we'll monitor closely)
[2017-06-22] MEDS: QUEtiapine 300 mg XR Tab PO SCH (21:28)
[2017-06-22] MEDS: Albuterol-Ipratrop 3 mg / 0.5 (3 ml) UD IH PRN (22:30)
--- NOTE | 2017-06-23 00:11 | PN ---
DATE: 06/22/2017 PULMONARY PROGRESS NOTE REFERRING PHYSICIAN: Rosette Miguel MD. SUBJECTIVE: She is sitting on the table having dinner. Refused to use CPAP/BiPAP last night. Breathing is okay. No nausea. No vomiting, diarrhea, leg pain, leg swelling. OBJECTIVE: GENERAL: In no acute distress. VITAL SIGNS: Temp is 98, heart rate is 69, respiratory rate is 120, blood pressure 123/60. HEENT: Moist mucous membrane. Crowded airway. NECK: Supple. No JVD. LUNGS: Have a fair airflow with few rhonchi. HEART: S1 and S2. ABDOMEN: Soft and nontender. No organomegaly. EXTREMITIES: No edema. NEUROLOGICAL: Awake and alert. Follows simple command. LABORATORY DATA: Shows hemoglobin 13.5, hematocrit 41.2, WBC 7.8, platelet is 195. Sodium 140, potassium 3.3, chloride 99, bicarbonate 31, BUN 26, creatinine 1.2, glucose 113, calcium is 10.8, AST 29, ALT 50, alk phos is 66, albumin is 4.3. Carcinoembryonic antigen 3.6, thyroxine is 4.2. MEDICATIONS: She is on Aldactone 25 mg twice a day, Antivert 12.5 mg three times a day, Bactroban double strength 1 tab twice a day, Brovana 50 mcg inhaled daily, DuoNeb every 6 hours p.r.n., Geodon 20 mg every 6 hours p.r.n., also Geodon 20 mg IM every 6 hours, Klonopin 0.5 mg every 8 hours p.r.n., Lamictal 100 mg twice a day, Lasix 40 mg daily, Lipitor 40 mg daily, lithium carbonate 450 mg twice a day, metoprolol tartrate 50 mg twice a day, Lovaza 1 g p.o. twice a day, Norvasc 5 mg at bedtime, Pulmicort inhaled twice a day, Seroquel XR 300 mg at bedtime, Singulair 10 mg at bedtime, Sonata 5 mg at bedtime p.r.n. IMPRESSION AND PLAN: Chronic obstructive lung disease, obstructive sleep apnea syndrome, bipolar disorder with depression, diabetes, hypertension, coronary artery disease, obesity. Again, I had a long discussion with the patient about sleep apnea, its relation to depression and her high dose of sedative. She expressed understanding and we will try to use tonight. Continue inhaled bronchodilator, though. Gastric prophylaxis. Fall precaution. Continue . Thank you and we will follow with you. Ponce Daniel MD
[2017-06-23] MEDS ORDERED: Arformoterol 15 mcg/2 ml Inh Sol IH SCH (06:00)
[2017-06-23] MEDS ORDERED: Budesonide 0.5 mg/2 ml Inhal Susp UD IH SCH (06:00)
[2017-06-23 07:00] LABS: HEMOGLOBIN 12.9 g/dL (12.0-16.0); MEAN CELL VOLUME 89.4 fl (80.0-105.0); MEAN CORPUSCULAR HEMOGLOBIN 29.2 pg (25.0-35.0); MEAN CORPUSCULAR HGB CONC 32.7 g/dl (31.0-37.0); MEAN PLATELET VOLUME 10.3 fl (7.0-11.0); RBC 4.42 10^6/uL (3.5-6.1); RED CELL DISTRIBUTION WIDTH 14.3 % (11.5-14.5); WHITE BLOOD COUNT 9.8 10^3/ul (4.5-11.0)
[2017-06-23 07:11] LABS: ALB/GLOB RATIO 1.6 (1.1-1.8); ALBUMIN 4.4 g/dL (3.0-4.8); CALCIUM 10.9 mg/dL (8.4-10.5)
[2017-06-23 07:32] VITALS: BP 125/72; PULSE 68; TEMP 97.3
[2017-06-23] MEDS: Albuterol-Ipratrop 3 mg / 0.5 (3 ml) UD IH PRN (08:24)
[2017-06-23] MEDS ORDERED: Potassium Chloride 20 mEq ER Tab PO SCH (09:00)
[2017-06-23] MEDS: Tmp-Smz 800 mg-160 mg DS Tab PO SCH (09:19)
[2017-06-23] MEDS: Lithium Carbonate ER Tab 450 MG PO SCH (09:19)
[2017-06-23] MEDS: Omega-3-Acid Ethyl Esters 1 GM Cap PO SCH (09:19)
[2017-06-23] MEDS: EXEMESTANE 25 MG PO SCH (09:20)
[2017-06-23] MEDS: KRISS PO SCH (09:20)
--- NOTE | 2017-06-23 12:46 | CP.PCM.CON ---
History of Present Illness - History of Present Illness History of Present Illness: Nephrology Consultation Note: Assessment: Stable Acute Kidney Injury (N17.9) likely A elevation in serum creatinine due to Bactrim Hypokalemia likely due to diuretics as Lasix Hypercalcemia with suppressed PTH RP and elevated PTH; likely suggestive of primary hyperparathyroidism, Possibly induced due to lithium Bipolar disorder, CHF, history of breast CA, HTN (I12.9) Morbid obesity Plan No acute need for renal replacement therapy at this time. Hypertension control with meds as ordered. Patient On Aldactone Monitor Input/Output, daily weights and renal function with basic metabolic panel While in hospital Supplement potassium as ordered Can stop Bactrim as no symptom of UTI and urine culture is negative. Patient following with endocrinology for hypercalcemia. Consider Sensipar as outpatient if calcium remains elevated CHF management as per primary team serum protein electrophoresis with immunofixation, with serum FLC assay as outpt Dose meds/antibiotics for reduced GFR. Avoid fleets enema/magnesium based laxatives. Avoid nephrotoxins/NSAIDs/ iodinated contrast (unless needed emergently) Glycemic control Further work up/management as per primary team Patient plan for discharge home today. She is stable from renal perspective. Patient advised to follow with me in clinic 1 week Thanks for allowing me to participate in care of your patient. Please call if any Qs. Discussed with team Dr Jean Chung Office: [phone] Chief Complaint; mood disorder Reason for consultation; AQUILINO and abnormal electrolytes HPI: Pt is a 57 F with hx of hypertension (years), Chronic systolic CHF with EF moderate reduced, history of breast lumpectomy/malignancy A few years ago, bipolar disorder on lithium since 1995 presented with complaints of Mood disorder. Renal consultation for a AQUILINO and abnormal electrolytes. She also was treated with Bactrim for possible UTI. Patient denies any urinary symptoms such as burning or painful urination at this time Denies OTC/herbal meds or NSAIDs No recent iodinated contrast exposure. episodes of low BP (98/63). ROS: Cardiovascular: No chest pain. Pulmonary: No shortness of breath Gastrointestinal: denies abdominal pain No nausea. No vomiting. Genitourinary: No pain while urinating. Denies blood in urine. All other negative except as mentioned in HPI Physical Examination: General Appearance: Comfortable, in no acute respiratory distress, co-operative . Vitals reviewed and noted as below Head; Atraumatic, normocephalic ENT: no ulcers no thrush. Tongue is midline. Oropharynx: no rash or ulcers. EYES: Pupils are equal, round and reactive to light accommodation. Eye muscles and extraocular movement intact. Sclera is anicteric. Neck; supple no lymphadenopathy, no thyromegaly or bruit Lungs: Normal respiratory rate/effort. Breath sounds bilateral equal and clear Heart: Normal rate. s1s2 normal. No rub or gallop. Extremities: no edema. No varicose veins Neurological: Patient is alert, awake and oriented to person, place and time. No focal deficit. Strength bilateral appropriate and equal Skin: Warm and dry. Normal turgor. No rash. Palpitation: Normal elasticity for age Abdomen: Abdomen is soft. Bowel sounds +. There is no abdominal tenderness, no guarding/rigidity no organomegaly Psych: normal insight and normal affect/mood MSK: no joint tenderness or swelling. Digits and nails normal, no deformity : kidney or bladder not palpable Labs/imaging reviewed. Past medical history, past surgical history, family history, social history, allergy reviewed and noted as below Family hx: no hx of CKD. Rest non-contributory Breast sonogram in 2018 unremarkable for any mass Echo shows LVEF moderately reduced Urine culture negative Urinalysis shows specific gravity less than 1.005 and trace protein TSH 2.7 PTH 106 PTH-RP 11 Vitamin D level 35 Past Patient History - Infectious Disease Hx of Infectious Diseases: None - Tetanus Immunizations Tetanus Immunization: Unknown - Past Social History Smoking Status: Former Smoker - CARDIAC Hx Cardiac Disorders: Yes (CAD, CABG x 4) Hx Congestive Heart Failure: Yes Hx Hypertension: Yes - PULMONARY Hx Chronic Obstructive Pulmonary Disease (COPD): Yes - NEUROLOGICAL Hx Neurological Disorder: No HX Cerebrovascular Accident: No Hx Seizures: Yes Other/Comment: left foot numbness and "sometimes" swells since having quadruple bypass sx - HEENT Hx HEENT Problems: Yes (sinusitis) Other/Comment: pt denies vocal cord mass - RENAL Hx Chronic Kidney Disease: No - ENDOCRINE/METABOLIC Hx Endocrine Disorders: Yes - HEMATOLOGICAL/ONCOLOGICAL Hx Blood Disorders: Yes Hx Cancer: Yes (left lumpectomy dx 3 yrs ago) Hx Chemotherapy: No Other/Comment: pt had radiation for left breast ca. Recent discharge with blood from left breast. - INTEGUMENTARY Hx Dermatological Problems: No Other/Comment: left breast swollen painful slight redness - MUSCULOSKELETAL/RHEUMATOLOGICAL Hx Musculoskeletal Disorders: No Hx Falls: No - GASTROINTESTINAL Hx Gastrointestinal Disorders: Yes (hemorrhoids, obese) Hx Constipation: Yes - GENITOURINARY/GYNECOLOGICAL Hx Genitourinary Disorders: No - PSYCHIATRIC Hx Psychophysiologic Disorder: Yes Hx Anxiety: Yes Hx Bipolar Disorder: Yes Hx Depression: Yes Hx Substance Use: No - SURGICAL HISTORY Hx Breast Biopsy: Yes (left) Hx Coronary Artery Bypass Graft: Yes - ANESTHESIA Hx Anesthesia: Yes Hx Anesthesia Reactions: No Hx Malignant Hyperthermia: No Meds Home Medications: Home Medication List Medication Instructions Recorded Confirmed Type Albuterol/Ipratropium [Duoneb 3 3 ml IH Q6H PRN neb 06/23/17 Rx mg/0.5 mg (3 ml) UD] Atorvastatin [Lipitor] 40 mg PO DIN tab 06/23/17 Rx Budesonide [Pulmicort Respules] 1 mg IH Q12 neb 06/23/17 Rx Furosemide [Lasix] 40 mg PO DAILY tab 06/23/17 Rx Home Med 2 unit PO BID ea 06/23/17 Rx [place] Carbonate ER Tab [[place] 450 mg PO BID tab 06/23/17 Rx Carbonate] [id number] Ethyl Esters 1 GM 1 gm PO BID sgl 06/23/17 Rx [Lovaza] Potassium Chloride [K-Dur 20 mEq 20 meq PO BRK tab 06/23/17 Rx ER Tab] QUEtiapine [Seroquel XR] 300 mg PO HS #14 ter 06/23/17 Rx Spironolactone [Aldactone] 25 mg PO BID tab 06/23/17 Rx amLODIPine [Norvasc] 5 mg PO HS tab 06/23/17 Rx Allergies/Adverse Reactions: Allergies Allergy/AdvReac Type Severity Reaction Status Date / Time No Known Allergies Allergy Verified 06/20/17 03:37 Results - Vital Signs Recent Vital Signs: Last Vital Signs Temp 97.3 F L 06/23/17 07:31 Pulse 68 06/23/17 07:31 Resp 20 06/23/17 07:31 BP 125/72 06/23/17 09:17 Pulse Ox 99 06/19/17 23:50 - Labs Result Diagrams: 06/23/17 06:30 06/23/17 06:30 Labs: Laboratory Results - last 24 hr 06/23/17 06/23/17 06:30 06:30 WBC 9.8 D RBC 4.42 Hgb 12.9 Hct 39.5 MCV 89.4 MCH 29.2 MCHC 32.7 RDW 14.3 Plt Count 208 MPV 10.3 Sodium 139 Potassium 3.3 L Chloride 101 Carbon Dioxide 26 Anion Gap 16 BUN 30 H Creatinine 1.4 H Est GFR ( Amer) 47 Est GFR (Non-Af Amer) 39 Random Glucose 117 H Calcium 10.9 H Total Bilirubin 0.9 AST 29 ALT 44 Alkaline Phosphatase 66 Total Protein 7.1 Albumin 4.4 Globulin 2.7 Albumin/Globulin Ratio 1.6
--- NOTE | 2017-06-23 15:59 | PN ---
DATE: ENDOCRINOLOGY FOLLOWUP NOTE LOCATION: Room 518, Psychiatry. SUBJECTIVE: This is a 57-year-old female with major depressive disorder and now also being followed closely for metabolic management because of persistent hypercalcemia that has improved accordingly as noted. The latest chemistry showed a BUN of 30, sodium 139, potassium 3.3, chloride 101, CO2 26, glucose 117 and creatinine 1.4. The latest calcium level is now 10.9 with an albumin of 4.4. Her thyroid study showed a T4 of 4.2 with a TSH of 2.72 indicative of the so-called acute sick euthyroid syndrome. Her parathyroid hormone intact level came in as 44, which really excludes the possibility of the most common entity causing hypercalcemia, which is primary hyperparathyroidism. So, I think we are dealing with a non-parathyroid etiology for the hypercalcemia as noted and confirmed above. Because of the history of breast carcinoma, we would recommend a bone scan and/or a PET/CT scan to further evaluate her underlying malignancy because this could also be a cause of hypercalcemia whether we are dealing with osteolytic related malignancy versus humoral hypercalcemia of malignancy. She will follow with her medical and oncology doctors for outpatient followup. Tiffany Fam MD
--- NOTE | 2017-06-23 16:18 | PN ---
DATE: 06/23/2017 SUBJECTIVE: I saw her in her room. She is doing much better. She is feeling much better. She has no complaints at this point. soon. She is on Aldactone, Antivert, Bactrim DS for UTI, Brovana, DuoNeb, Geodon, Klonopin, Lamictal, Lasix, Lipitor, [place], Lopressor, Lovaza, Norvasc, Pulmicort, Seroquel, Singulair and Sonata. OBJECTIVE VITAL SIGNS: She has a 97.3 temperature, 68 pulse, 125/72 blood pressure, 20 respiratory rate. HEENT: Head is atraumatic, normocephalic. HEART: Regular rate. LUNGS: Clear to auscultation. ABDOMEN: Soft, obese, nontender. EXTREMITIES: No edema. LABORATORY DATA: She had a 9.8 white count, 12.9 hemoglobin, 39.5 hematocrit with 208 platelets. She has a 139 sodium; potassium 3.3, I gave her potassium, told to take today and BUN is 30, creatinine 1.4, GFR is 39, sugar is 117, calcium is 10.9, total bili is 0.9, AST is 29, ALT is 44, alkaline phosphatase , total protein 7.1. BUN and creatinine are going up a little bit. ASSESSMENT AND PLAN: She is being seen by Pulmonology and Endocrinology. I am going to consult Renal. I gave her potassium supplement. The patient is having renal insufficiency on top of chronic obstructive pulmonary disease, congestive heart failure, asthma, hypertension, depression, urinary tract infection and bipolar. Zach Madera DO MTDD
[2017-06-23 16:25] LABS: CA 27.29 15 U/mL (<38)
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
== END 2017-06-23 11:39 | disposition home or self-care (01) | DRG 885 ==
LOC: ED 21:40 → ERH 06-20 → PSYC 06-20 01:19
PROVIDERS: ADMIT Psychiatry & Neurology Psychiatry; ATTEND Psychiatry & Neurology Psychiatry
PROC: GZ3ZZZZ Medication Management (ICD-10-PCS; principal; 2017-06-20)
DX: F31.9 Bipolar disorder, unspecified (principal); N17.9 Acute kidney failure, unspecified; I50.22 Chronic systolic (congestive) heart failure; N39.0 Urinary tract infection, site not specified; I11.0 Hypertensive heart disease with heart failure; T37.0X5A Adverse effect of sulfonamides, initial encounter; I25.10 Atherosclerotic heart disease of native coronary artery without angina pectoris; E78.00 Pure hypercholesterolemia, unspecified; K59.00 Constipation, unspecified; E87.6 Hypokalemia; G47.33 Obstructive sleep apnea (adult) (pediatric); E83.52 Hypercalcemia; E07.81 Sick-euthyroid syndrome; E11.9 Type 2 diabetes mellitus without complications; J44.9 Chronic obstructive pulmonary disease, unspecified; E78.5 Hyperlipidemia, unspecified; G40.909 Epilepsy, unspecified, not intractable, without status epilepticus; E66.9 Obesity, unspecified; F41.1 Generalized anxiety disorder; F25.9 Schizoaffective disorder, unspecified; Z85.3 Personal history of malignant neoplasm of breast; Z92.3 Personal history of irradiation; Z95.1 Presence of aortocoronary bypass graft; Z87.891 Personal history of nicotine dependence

== ENCOUNTER 2017-07-05 01:58 | Emergency (ER) | payer MEDICARE, OTHER ==
[2017-07-05 01:58] VITALS: PULSE 80; BMI 41.1
[2017-07-05 02:19] VITALS: BP 153/77; PULSE 82; RESP 17; TEMP 98.2; O2SAT 97
== END 2017-07-05 02:22 | disposition left against medical advice (07) ==
LOC: ED 01:58
DX: Z02.89 Encounter for other administrative examinations (principal); I10 Essential (primary) hypertension

== ENCOUNTER 2017-07-07 14:42 | Inpatient (IN) | payer MEDICARE, OTHER ==
[2017-07-07 14:43] VITALS: PULSE 80; BMI 41.1
--- NOTE | 2017-07-07 15:53 | ED PDOC ---
Arrival/HPI - General Chief Complaint: Psychiatric Evaluation Time Seen by Provider: 07/07/17 14:54 Historian: Patient - History of Present Illness Narrative History of Present Illness (Text): 07/07/17 15:36 57yr old female presents today stating that she has been under a lot of stress. pt states she spoke with her daughter and her daughter wanted her to be evaluated. pt denies cp or sob. no vomiting/diarrhea. no abdominal pain. pt denies dizziness or weakness. pt denies headaches. pt denies SI or HI. no fever/ chills. no urinary symptoms. no other complaints. pt denies drug use. Past Medical History - Provider Review Nursing Documentation Reviewed: Yes - Travel History Have you recently traveled outside [place] w/in the past 3 mons?: No - Infectious Disease Hx of Infectious Diseases: None - Tetanus Immunization Tetanus Immunization: Unknown - Reproductive Menopause: Yes - Past Medical History Past Medical History: No Previous - Cardiac Hx Cardiac Disorders: Yes (CAD, CABG x 4) Hx Congestive Heart Failure: Yes Hx Hypertension: Yes - Pulmonary Hx Chronic Obstructive Pulmonary Disease (COPD): Yes - Neurological Hx Neurological Disorder: No HX Cerebrovascular Accident: No Hx Seizures: Yes Other/Comment: left foot numbness and "sometimes" swells since having quadruple bypass sx - HEENT Hx HEENT Disorder: Yes (sinusitis) Other/Comment: pt denies vocal cord mass - Renal Hx Renal Disorder: No - Endocrine/Metabolic Hx Endocrine Disorders: Yes - Hematological/Oncological Hx Blood Disorders: Yes Hx Cancer: Yes (left lumpectomy dx 3 yrs ago) Hx Chemotherapy: No Other/Comment: pt had radiation for left breast ca. Recent discharge with blood from left breast. - Integumentary Hx Dermatological Disorder: No Other/Comment: left breast swollen painful slight redness - Musculoskeletal/Rheumatological Hx Musculoskeletal Disorders: No Hx Falls: No - Gastrointestinal Hx Gastrointestinal Disorders: Yes (hemorrhoids, obese) Hx Constipation: Yes - Genitourinary/Gynecological Hx Genitourinary Disorders: No - Psychiatric Hx Psychophysiologic Disorder: Yes Hx Anxiety: Yes Hx Bipolar Disorder: Yes Hx Depression: Yes Hx Substance Use: No - Past Surgical History Past Surgical History: No Previous - Surgical History Hx Breast Biopsy: Yes (left) Hx Coronary Artery Bypass Graft: Yes - Anesthesia Hx Anesthesia: Yes Hx Anesthesia Reactions: No Hx Malignant Hyperthermia: No - Suicidal Assessment Feels Threatened In Home Enviroment: No Family/Social History - Physician Review Nursing Documentation Reviewed: Yes Family/Social History: Unknown Family HX Smoking Status: Former Smoker Hx Alcohol Use: No Hx Substance Use: No Hx Substance Use Treatment: No Allergies/Home Meds Allergies/Adverse Reactions: Allergies No Known Allergies Allergy (Verified 07/07/17 15:10) Home Medications: Home Meds Medication Instructions Recorded Confirmed Metoprolol Tartrate [Lopressor] 50 mg PO BID 07/30/11 07/07/17 Montelukast [Singulair] 10 mg PO HS 03/27/13 07/07/17 lamoTRIgine [Lamictal] 100 mg PO BID 11/07/15 07/07/17 Fluticasone/Salmeterol [Advair 1 500 INH DAILY 11/08/15 06/20/17 500-50 Diskus] Amlodipine Besylate [Norvasc] 5 mg PO HS 01/13/17 07/07/17 Clonazepam [Klonopin] 0.5 mg PO TID PRN 01/13/17 06/20/17 Albuterol HFA [Ventolin HFA 90 puff INH 07/07/17 mcg/actuation (8 g)] Albuterol Sulfate [Proair Hfa] puff INH 07/07/17 Aspirin [Adult Low Dose Aspirin EC] 81 mg PO DAILY 07/07/17 07/07/17 Atorvastatin [Lipitor] 20 mg PO HS 07/07/17 07/07/17 Cetirizine HCl [All Day Allergy] 10 mg PO DAILY 07/07/17 07/07/17 Escitalopram [Lexapro] 10 mg PO DAILY 07/07/17 07/07/17 Exemestane [Aromasin] 25 mg PO DAILY 07/07/17 07/07/17 Famotidine [Pepcid] 40 mg PO BID 07/07/17 07/07/17 Meclizine [Antivert] 12.5 mg PO TID 07/07/17 07/07/17 Mecobalamin [B-12] 1,000 mg PO DAILY 07/07/17 07/07/17 QUEtiapine [Seroquel] 100 mg PO TID 07/07/17 07/07/17 metOLazone [Zaroxolyn] 5 mg PO DAILY 07/07/17 07/07/17 oxyCODONE [oxyCODONE Immediate 5 mg PO Q6 PRN 07/07/17 07/07/17 Release Tab] Review of Systems - Review of Systems Constitutional: absent: Fatigue, Fevers Respiratory: absent: SOB, Cough Cardiovascular: absent: Chest Pain, Palpitations Gastrointestinal: absent: Abdominal Pain, Nausea, Vomiting Genitourinary Female: absent: Dysuria, Frequency, Hematuria Musculoskeletal: absent: Arthralgias, Back Pain, Neck Pain Skin: absent: Rash, Pruritis Neurological: absent: Headache, Dizziness Psychiatric: Depression. absent: Anxiety, Suicidal Ideation Physical Exam Vital Signs Reviewed: Yes Vital Signs Temp Pulse Resp BP Pulse Ox 07/07/17 20:57 90 18 157/90 H 98 07/07/17 19:15 92 H 18 162/84 H 97 07/07/17 17:00 88 18 155/79 H 98 07/07/17 15:07 98 F 90 18 175/57 H 98 Temperature: Afebrile Blood Pressure: Hypertensive Pulse: Regular Respiratory Rate: Normal Appearance: Positive for: Well-Appearing, Non-Toxic, Comfortable Pain Distress: None Mental Status: Positive for: Alert and Oriented X 3 - Systems Exam Head: Present: Atraumatic Pupils: Present: PERRL Extroacular Muscles: Present: EOMI Conjunctiva: Present: Normal Mouth: Present: Moist Mucous Membranes Neck: Present: Normal Range of Motion Respiratory/Chest: Present: Clear to Auscultation, Good Air Exchange. No: Respiratory Distress, Accessory Muscle Use Cardiovascular: Present: Regular Rate and Rhythm, Normal S1, S2. No: Murmurs Abdomen: No: Tenderness Upper Extremity: Present: Normal Inspection, Normal ROM, Neurovascularly Intact Lower Extremity: Present: Normal Inspection, Normal ROM Neurological: Present: GCS=15, Speech Normal, Gait Normal Skin: Present: Warm, Dry, Normal Color. No: Rashes Psychiatric: Present: Alert, Oriented x 3, Depressed Mood. No: Suicidal Ideation, Homicidal Ideation Medical Decision Making ED Course and Treatment: 07/07/17 15:55 Patient is nontoxic well-appearing in no distress vital signs are stable. CBC Wbc;12.6 CMP bun; 26 cr; 1.5 Tylenol WNL Salicylate WNL Alcohol level WNL Urine drug screen wnl UA; + leukocytes cxr: wnl ekg normal sinus rhythm at [address] elevations pt is medically cleared for PES evaluation Patient was seen and evaluated by PES screener: nat Patient sign voluntarily to psychiatric floor Impression; paranoia, UTI Admitted to behavioral health floor - Lab Interpretations Lab Results: 07/07/17 15:55 07/07/17 15:55 Lab Results 07/07/17 15:55: Alcohol, Quantitative < 10 07/07/17 15:55: Salicylates < 1 L, Acetaminophen < 10.0 L 07/07/17 15:55: Sodium 140, Potassium 3.1 L, Chloride 101, Carbon Dioxide 28, Anion Gap 14, BUN 26 H, Creatinine 1.5 H, Est GFR ( Amer) 43, Est GFR ( Non-Af Amer) 36, Random Glucose 123 H, Calcium 10.8 H, Total Bilirubin 0.7, AST 36 D, ALT 43, Alkaline Phosphatase 91, Total Protein 7.2, Albumin 4.8, Globulin 2.5, Albumin/Globulin Ratio 1.9 H 07/07/17 15:55: WBC 12.6 H D, RBC 4.01, Hgb 11.9 L, Hct 36.5, MCV 91.0, MCH 29.7 , MCHC 32.6, RDW 14.7 H, Plt Count 199, MPV 10.2, Gran % 74.2 H, Lymph % (Auto) 16.1 L, [place] % (Auto) 6.0, Eos % (Auto) 3.5, Baso % (Auto) 0.2, Gran # 9.37 H, Lymph # (Auto) 2.0, [place] # (Auto) 0.8 H, Eos # (Auto) 0.4, Baso # (Auto) 0.03 07/07/17 15:54: Urine Opiates Screen Negative, Urine Methadone Screen Negative, Ur Barbiturates Screen Negative, Ur Phencyclidine Scrn Negative, Ur Amphetamines Screen Negative, U Benzodiazepines Scrn Negative, U Oth Cocaine Metabols Negative, U Cannabinoids Screen Negative 07/07/17 15:54: Urine Color Yellow, Urine Appearance Clear, Urine pH 6.5, Ur Specific [place] 1.015, Urine Protein 30 H, Urine Glucose (UA) Negative, Urine Ketones Negative, Urine Blood Trace-intact H, Urine Nitrate Negative, Urine Bilirubin Negative, Urine Urobilinogen 0.2, Ur Leukocyte Esterase Trace H, Urine RBC 0 - 2, Urine WBC 2 - 5, Ur Epithelial Cells 3 - 4, Urine Bacteria Few - RAD Interpretation Radiology Orders: 07/07/17 15:32 CHEST PORTABLE [RAD] Stat - Medication Orders Current Medication Orders: Furosemide (Lasix) 40 mg PO DAILY [facility] Meclizine HCl (Antivert) 12.5 mg PO TID [facility] Metoprolol Tartrate (Lopressor) 50 mg PO BID [facility] Montelukast Sodium (Singulair) 10 mg PO HS [facility] Quetiapine Fumarate (Seroquel Xr) 300 mg PO 1700 [facility] PRN Reason: Protocol Spironolactone (Aldactone) 25 mg PO BID [facility] Zaleplon (Sonata) 5 mg PO HS PRN PRN Reason: Insomnia Discontinued Medications Cephalexin Monohydrate (Keflex) 500 mg PO STAT STA PRN Reason: Protocol Stop: 07/07/17 19:47 Last Admin: 07/07/17 21:17 Dose: 500 mg Furosemide (Lasix) 40 mg PO DAILY [facility] Potassium Chloride (K-Dur 20 Meq Er Tab) 40 meq PO STAT STA Stop: 07/07/17 19:47 Last Admin: 07/07/17 21:17 Dose: 40 meq Quetiapine Fumarate (Seroquel Xr) 150 mg PO STAT STA PRN Reason: Protocol Stop: 07/07/17 22:23 Last Admin: 07/07/17 23:41 Dose: 150 mg Behavioural Document 07/07/17 23:41 DC (Rec: 07/07/17 23:42 DC [id number]) Maintenance Maintenance Dose Yes Disposition/Present on Arrival - Present on Arrival Any Indicators Present on Arrival: No History of DVT/PE: No History of Uncontrolled Diabetes: No Urinary Catheter: No History of Decub. Ulcer: No History Surgical Site Infection Following: None - Disposition Have Diagnosis and Disposition been Completed?: Yes Diagnosis: UTI (urinary tract infection), Hypokalemia, Paranoia Disposition: HOSPITALIZED Disposition Time: 19:49 Patient Plan: Admission Patient Problems: Current Active Problems Problem Status Onset Hypokalemia Acute Paranoia Acute UTI (urinary tract infection) Acute Condition: FAIR
[2017-07-07 16:02] LABS: PH,URINE 6.5 (4.7-8.0); URINE BILIRUBIN NEGATIVE (NEGATIVE); URINE BLOOD TRACE-INTACT (NEGATIVE); URINE GLUCOSE (UA) NEGATIVE (NEGATIVE); URINE LEUKOCYTE ESTERASE TRACE Leu/uL (NEGATIVE); URINE PROTEIN 30 mg/dL (<30 mg/dL); URINE UROBILINOGEN 0.2 E.U./dL (<1 E.U./dL)
[2017-07-07 16:14] LABS: BASO # 0.03 K/mm3 (0.0-2.0); BASO % 0.2 % (0.0-3.0); EOS # 0.4 (0.0-0.7); EOS % 3.5 % (1.5-5.0); GRAN # 9.37 (1.4-6.5); GRAN % 74.2 % (50.0-68.0); HEMOGLOBIN 11.9 g/dL (12.0-16.0); LYMPH % 16.1 % (22.0-35.0); MEAN CORPUSCULAR HEMOGLOBIN 29.7 pg (25.0-35.0); MEAN CORPUSCULAR HGB CONC 32.6 g/dl (31.0-37.0); MEAN PLATELET VOLUME 10.2 fl (7.0-11.0); MONO # 0.8 (0.1-0.6); RBC 4.01 10^6/uL (3.5-6.1); RED CELL DISTRIBUTION WIDTH 14.7 % (11.5-14.5); WHITE BLOOD COUNT 12.6 10^3/ul (4.5-11.0)
[2017-07-07 16:17] LABS: URINE APPEARANCE CLEAR (CLEAR); URINE COLOR YELLOW (YELLOW)
[2017-07-07 16:20] LABS: URINE BACTERIA FEW (NEG); URINE RBC 0 - 2 /hpf (0-2)
[2017-07-07 16:23] LABS: ACETAMINOPHEN < 10.0 ug/ml (10.0-20.0); SALICYLATE < 1 mg/dL (2.0-20.0)
--- NOTE | 2017-07-07 16:32 | RAD ---
HISTORY: pes COMPARISON: 06/19/2017 FINDINGS: LUNGS: No active pulmonary disease. PLEURA: No significant pleural effusion identified, no pneumothorax apparent. CARDIOVASCULAR: No radiographic findings to suggest acute or significant cardiovascular disease. Incidental Finding(s): Postoperative changes related to sternotomy. OSSEOUS STRUCTURES: No significant abnormalities. VISUALIZED UPPER ABDOMEN: Normal. OTHER FINDINGS: None. IMPRESSION: No active disease. No significant interval change compared to the prior examination(s).
[2017-07-07 16:34] LABS: ALB/GLOB RATIO 1.9 (1.1-1.8); ALBUMIN 4.8 g/dL (3.0-4.8); CALCIUM 10.8 mg/dL (8.4-10.5)
[2017-07-07 16:34] LABS: BARBITURATES, UR NEGATIVE (NEGATIVE); BENZODIAZEPINES, UR NEGATIVE (NEGATIVE); OPIATES, UR NEGATIVE (NEGATIVE); PHENCYCLIDINE, UR NEGATIVE (NEGATIVE)
[2017-07-07] MEDS ORDERED: Potassium Chloride 20 mEq ER Tab PO STA (19:46)
--- NOTE | 2017-07-07 22:05 | CARD ---
APPROVED REPORT EKG Measurement Heart [id number] <Conclusion> Normal sinus rhythm Left ventricular hypertrophy with QRS widening and repolarization abnormality Abnormal ECG
[2017-07-07] MEDS ORDERED: QUEtiapine 150 mg XR Tab PO STA (22:22)
--- NOTE | 2017-07-08 05:09 | PCM.BM ---
<Kvng Gandhi - Last Filed: 07/08/17 05:06> Treatment Plan Problems - Problems identified on initial assessmt Delusions Date Initiated: 07/07/17 Time Initiated: 22:00 Assessment reference: NA Status: Active Priority: 1 Thought Process Date Initiated: 07/07/17 Time Initiated: 22:00 Assessment reference: NA Status: Active Priority: 2 Ineffective Coping Date Initiated: 07/07/17 Time Initiated: 22:00 Assessment reference: NA Status: Active Priority: 3 Altered Sleep Patterns Date Initiated: 07/07/17 Time Initiated: 22:00 Assessment reference: NA Status: Active Priority: 4 Treatment assets and liabiliti Patient Assests: cooperative, educated, insightful, motivated, self-reliant, ADL independent, negotiates basic needs, cognitively intact Patient Liabilities: medical problems - Milieu Protocol Maintain good personal hygiene: daily Encourage regular showers, every shift Remind patient to perform daily oral care, every shift Assist patient to perform ADL's Maintain personal safety: every shift Educate patient to report safety concerns to staff, every shift Monitor environment for contraband/sharps Medication safety: Monitor for expected outcome, potential side effects: every shift, Assess barriers to learning: every shift, Assess readiness for medication education: every shift Family Contact Family involvement: Family/SO is involved Family contact: Patient agrees to contact - Goals for Treatment Patient goals for treatment: Just want to be ok. Discharge/Continuing Care - Education Needs Education Needs: Family Medication, Family Diagnosis/Disease Process, Family Aftercare Safety Plan, Patient Medication, Patient Diagnosis/Disease Process, Patient Coping Skills, Patient Anger Management skills, Patient Placement options, Patient Community resources, Patient Activities of Daily Living, Patient Pain, Patient Nutrition, Patient Uses of Medical Equipment, Patient Health Practices/Safety, Patient Personal Hygiene/Grooming, Patient Aftercare Safety Plan - Discharge Discharge Criteria: Tolerates medication w/o severe side effects, Free of paranoid thoughts <Rosette Miguel - Last Filed: 07/08/17 12:04> - Diagnosis (1) Schizoaffective disorder Status: Acute Interventions: 07/08/17 12:05 Psychoeducation supportive therapy Psychopharmacology/adjustment of medications as needed/ monitoring possible side effects Evaluate pt on daily basis Compliance with medications and follow up appointments Long acting medication if pt is noncompliant with pill form Suicide and homicide risk assessment and prevention, coping strategies, safety plan Relapse prevention Reduction of symptoms Improve functional status Possible assertive community treatment Cognitive behavioral therapy Family involvement Possible social skill training as outpatient <Yin Tanner Y - Last Filed: 07/09/17 17:48> Family Contact Family involvement: Family/SO is involved Family contact: Patient agrees to contact Family contact name: Anali Sim(daughter) Family contacted how many times per week?: 2 - Outside Agency [facility] Care involvment: Information-sharing Agency contact name: [facility] Agency contact number: [phone]
[2017-07-08] MEDS ORDERED: Alum-Mag Hydrox-Simethicone Susp (30 mL) PO PRN (05:16)
[2017-07-08] MEDS ORDERED: Magnesium Hydroxide Susp 30 ml UD PO PRN (05:16)
[2017-07-08 08:24] LABS: GLUCOSE,FASTING 118 mg/dL (65-110); HDL CHOLESTEROL 40 mg/dL (29-60)
[2017-07-08 08:35] LABS: LDL CHOLESTEROL 136 mg/dL (0-129)
[2017-07-08] MEDS ORDERED: Albuterol-Ipratrop 3 mg / 0.5 (3 ml) UD IH PRN (09:17)
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
[2017-07-08] MEDS: QUEtiapine 150 mg XR Tab PO SCH (13:24)
[2017-07-08] MEDS: QUEtiapine 300 mg XR Tab PO SCH (17:46)
[2017-07-09 06:28] VITALS: O2SAT 94
[2017-07-09 08:19] LABS: BASO # 0.05 K/mm3 (0.0-2.0); BASO % 0.5 % (0.0-3.0); EOS # 0.5 (0.0-0.7); EOS % 4.7 % (1.5-5.0); GRAN # 7.86 (1.4-6.5); GRAN % 72.8 % (50.0-68.0); HEMOGLOBIN 12.6 g/dL (12.0-16.0); LYMPH # 1.9 (1.2-3.4); LYMPH % 17.5 % (22.0-35.0); MEAN CELL VOLUME 91.5 fl (80.0-105.0); MEAN CORPUSCULAR HEMOGLOBIN 29.6 pg (25.0-35.0); MEAN CORPUSCULAR HGB CONC 32.3 g/dl (31.0-37.0); MEAN PLATELET VOLUME 10.5 fl (7.0-11.0); MONO # 0.5 (0.1-0.6); MONO % 4.5 % (1.0-6.0); RBC 4.26 10^6/uL (3.5-6.1); RED CELL DISTRIBUTION WIDTH 14.6 % (11.5-14.5); WHITE BLOOD COUNT 10.8 10^3/ul (4.5-11.0)
[2017-07-09 08:35] LABS: CALCIUM 10.9 mg/dL (8.4-10.5)
--- NOTE | 2017-07-09 08:43 | PN ---
DATE: 07/08/2017 REASON FOR CONSULTATION: Hypokalemia, elevated creatinine/acute kidney injury, hypercalcemia. HISTORY OF PRESENTING ILLNESS: A 57-year-old lady previously unknown to me, the patient was admitted yesterday because of paranoia, extreme fear. The patient gives a history of bipolar disorder. The patient reports that might have been some issue with her lithium level. She denies any chest pain, palpitations, or shortness of breath. She denies any abdominal pain. She denies any nausea, vomiting, or diarrhea. She denies any fevers or chills. In the emergency room, she was found to have potassium of 3.1, elevated creatinine of 1.5, elevated calcium of 10.8. Hence, consultation is requested. The patient was recently here earlier in the month also for some psychiatric issues. At that time also, her creatinine was found to be 1.4. At that time, it was thought that her acute kidney injury was likely related to Bactrim that she was taking for UTI. That was supposed to be discontinued. Also her workup for her hypercalcemia was consistent with primary hyperparathyroidism. PAST MEDICAL AND SURGICAL HISTORY: Bipolar disorder, CHF, hypertension, remote history of breast cancer, obesity, primary hyperparathyroidism. FAMILY HISTORY: Noncontributory. SOCIAL HISTORY: No smoking, no alcohol use, no IV drug abuse. ALLERGIES: NO KNOWN DRUG ALLERGIES. MEDICATIONS AT HOME: Cetirizine, amlodipine 5, Lopressor 50 b.i.d., Singulair, Aldactone 25 b.i.d., Zaroxolyn?, Lasix 40 daily, Lipitor 20, Pepcid 40, lithium 450 b.i.d., Seroquel, Aromasin, potassium 20 mEq daily. REVIEW OF SYSTEMS: All systems are reviewed, pertinent positives as mentioned in the history presenting illness, rest unremarkable. PHYSICAL EXAMINATION: GENERAL: Obese middle-aged lady, sitting in chair. VITAL SIGNS: Blood pressure 148/76, heart rate 70, respiratory rate 20, temperature 97.8. HEENT: Normocephalic, atraumatic. NECK: Supple, no JVD. LUNGS: Bilateral equal air entry, bilateral equal expansion, no rales. CARDIAC: S1 and S2, regular rate and rhythm, no murmur, no rub. ABDOMEN: Obese, distended, soft, nontender, bowel sounds present. EXTREMITIES: No lower extremity edema. INTAKE AND OUTPUT: Not charted. LABORATORY DATA: WBC 12.6, hemoglobin 11.9, hematocrit 36.5, and platelets 199. Sodium 140, potassium 3.1, chloride 101, CO2 of 28. BUN 26, creatinine 1.5. Glucose 123. Calcium 10.8. Albumin 4.8, globulin 2.5. Cholesterol 216, LDL 136. CURRENT MEDICATIONS: Aldactone 25 b.i.d., meclizine, Aromasin, Claritin, DuoNeb, Ecotrin, Klonopin, Lamictal, Lasix 40 daily, Lexapro, Lipitor 20 at bedtime, Lopressor 50 b.i.d., Maalox, milk of magnesia, amlodipine 5. Geovanna Biswas MD
[2017-07-09] MEDS: QUEtiapine 150 mg XR Tab PO SCH (09:03)
--- NOTE | 2017-07-09 09:49 | CON ---
DATE: PULMONARY CONSULTATION REFERRING PHYSICIAN: Dr. Dinero. REASON FOR CONSULTATION: Chronic obstructive lung disease, obstructive sleep apnea syndrome. HISTORY OF PRESENT ILLNESS: This is a 57-year-old female who was recently admitted to Psychiatry. Daughter brought her back to ER, that she is not feeling well. She was claiming that people are messing up with her brain. She claims that it feels very bad. She has multiple other medical issues including chronic obstructive lung disease, obstructive sleep apnea syndrome, which she is noncompliant, uncontrolled diabetes. She has a history of bipolar disorder, congestive heart failure, recurrent sinusitis, history of breast cancer requiring lumpectomy, so presently admitted in the Psych Unit. There is no hemoptysis, no hematemesis, no hematuria. No diarrhea reported. PAST MEDICAL HISTORY: As per history present illness. ALLERGIES: NONE KNOWN. SOCIAL HISTORY: Stopped smoking many years ago. Denies any alcohol use. FAMILY HISTORY: No significant cardiopulmonary disease reported. MEDICATIONS: She s on Aldactone 25 mg twice a day, Antivert 12.5 mg three times a day, Aromasin 25 mg daily, Claritin 10 mg daily, albuterol/Atrovent nebulizer every 6 hours p.r.n., Ecotrin 81 mg daily, Klonopin 0.5 mg three times a day p.r.n., Lamictal 100 mg twice a day, Lasix 40 mg daily, Lexapro 10 mg daily, Lipitor 20 mg daily, metoprolol tartrate 50 mg twice a day, milk of magnesia p.r.n. basis, Norvasc 5 mg daily, Seroquel XR 150 mg daily, Seroquel XR 300 mg, Singulair 10 mg daily, Sonata 5 mg at bedtime, Tylenol p.r.n. basis. REVIEW OF SYSTEMS: No headache, no rhinitis. No cough. No nausea, no vomiting, no diarrhea. No leg pain or leg swelling. She feels she is not stable, need some Psych help. PHYSICAL EXAMINATION: GENERAL: In no acute distress. VITAL SIGNS: Temperature is 98, heart rate is 59, respiratory rate is 20, blood pressure 152/82. HEENT: Moist mucous membrane. Crowded airway. NECK: Supple. No JVD. LUNGS: Has fair airflow with rhonchi. HEART: S1 and S2. ABDOMEN: Soft, nontender. No organomegaly. EXTREMITIES: No edema. NEUROLOGIC: Awake and alert. Follows simple command. LABORATORY DATA: Shows hemoglobin 11.9, hematocrit 36.5, WBC 12.6, platelet is 199. Sodium 140, potassium 3.1, chloride 101, bicarbonate 28, BUN 26, creatinine 1.5, glucose 118, calcium 10.8, AST 36, ALT 43, alk phos is 91. Cholesterol is 216. TSH 4.40. Alcohol level less than 10. IMPRESSION AND PLAN: Chronic obstructive lung disease, obstructive sleep apnea syndrome, bipolar disorder with depression, diabetes, hypertension, coronary artery disease, obesity. Pulmonary point view, she is doing well. Continue p.o. and inhaled bronchodilator, sleep apnea precaution. Careful with sedation. She is refusing to use continuous positive airway pressure. Gastric prophylaxis. Fall precaution. Continue therapy. Thank you and we will follow with you. Ponce Daniel MD
[2017-07-09] MEDS: Potassium Chloride 10 mEq ER Tab PO SCH (11:33)
--- NOTE | 2017-07-09 16:07 | PCM.PYCHPN ---
Psychiatric Progress Note - Psychiatric Progress Note Patient seen today, length of contact: 30minutes Patient Chief Complaint: ", my night was horrible, I saw the light, I was terrified" Problems Identified/Issues Discussed: Suicide/ homicide prevention, past psychiatric h/o, current psychiatric symptoms , medical problems, risk/benefits and alternatives of medications, medications compliance, coping strategies, substance abuse h/o, relapse prevention, importance of follow up with psychiatrist and therapist, discharge plan. Medical Problems: see HPI Diagnostic Results: 07/09/17 08:00 07/09/17 08:00 Lab Results 07/09/17 08:00: WBC 10.8, RBC 4.26, Hgb 12.6, Hct 39.0, MCV 91.5, MCH 29.6, MCHC 32.3, RDW 14.6 H, Plt Count 218, MPV 10.5, Gran % 72.8 H, Lymph % (Auto) 17.5 L, [place] % (Auto) 4.5, Eos % (Auto) 4.7, Baso % (Auto) 0.5, Gran # 7.86 H, Lymph # (Auto) 1.9, [place] # (Auto) 0.5, Eos # (Auto) 0.5, Baso # (Auto) 0.05 07/09/17 08:00: Sodium 142, Potassium 3.4 L, Chloride 101, Carbon Dioxide 28, Anion Gap 15, BUN 25 H, Creatinine 1.2, Est GFR ( Amer) 56, Est GFR (Non- Af Amer) 46, Random Glucose 112 H, Calcium 10.9 H, Phosphorus 3.0, Magnesium 1.8 07/08/17 08:00: RPR Nonreactive 07/08/17 08:00: TSH 3rd Generation 4.40 07/08/17 08:00: Fasting Glucose 118 H, Triglycerides 215 H, Cholesterol 216 H, LDL Cholesterol Direct 136 H, HDL Cholesterol 40 07/07/17 15:55: Alcohol, Quantitative < 10 07/07/17 15:55: Salicylates < 1 L, Acetaminophen < 10.0 L 07/07/17 15:55: Sodium 140, Potassium 3.1 L, Chloride 101, Carbon Dioxide 28, Anion Gap 14, BUN 26 H, Creatinine 1.5 H, Est GFR ( Amer) 43, Est GFR ( Non-Af Amer) 36, Random Glucose 123 H, Calcium 10.8 H, Total Bilirubin 0.7, AST 36 D, ALT 43, Alkaline Phosphatase 91, Total Protein 7.2, Albumin 4.8, Globulin 2.5, Albumin/Globulin Ratio 1.9 H 07/07/17 15:55: WBC 12.6 H D, RBC 4.01, Hgb 11.9 L, Hct 36.5, MCV 91.0, MCH 29.7 , MCHC 32.6, RDW 14.7 H, Plt Count 199, MPV 10.2, Gran % 74.2 H, Lymph % (Auto) 16.1 L, Free[place] % (Auto) 6.0, Eos % (Auto) 3.5, Baso % (Auto) 0.2, Gran # 9.37 H, Lymph # (Auto) 2.0, Free[place] # (Auto) 0.8 H, Eos # (Auto) 0.4, Baso # (Auto) 0.03 07/07/17 15:54: Urine Opiates Screen Negative, Urine Methadone Screen Negative, Ur Barbiturates Screen Negative, Ur Phencyclidine Scrn Negative, Ur Amphetamines Screen Negative, U Benzodiazepines Scrn Negative, U Oth Cocaine Metabols Negative, U Cannabinoids Screen Negative 07/07/17 15:54: Urine Color Yellow, Urine Appearance Clear, Urine pH 6.5, Ur Specific [place] 1.015, Urine Protein 30 H, Urine Glucose (UA) Negative, Urine Ketones Negative, Urine Blood Trace-intact H, Urine Nitrate Negative, Urine Bilirubin Negative, Urine Urobilinogen 0.2, Ur Leukocyte Esterase Trace H, Urine RBC 0 - 2, Urine WBC 2 - 5, Ur Epithelial Cells 3 - 4, Urine Bacteria Few Vital Signs Temp Pulse Pulse Resp BP Pulse Ox 07/09/17 09:01 68 169/92 H 07/09/17 09:00 169/92 H 07/09/17 06:27 97.7 F 68 18 165/92 H 94 L 07/08/17 17:46 59 L 152/82 H 07/08/17 16:00 59 L 152/82 H 07/08/17 09:50 70 148/76 07/08/17 09:48 148/76 07/08/17 07:34 97.8 F 70 20 148/76 07/07/17 22:00 97.7 F 66 66 18 149/76 99 07/07/17 20:57 90 18 157/90 H 98 07/07/17 19:15 92 H 18 162/84 H 97 07/07/17 17:00 88 18 155/79 H 98 07/07/17 15:07 98 F 90 18 175/57 H 98 DSM 5 Symptoms Update: shortly pt is 57 y/o female, with reported h/o bipolar disorder, r/o schizoaffective disorder, pt denied h/o suicidal attempts, lives alone in senior citizen building for the past year, has two grown daughters, does not work, on disability, attends to [facility], multiple medical issues including htn/chf/copd, 1 recent psychiatric admission at psych unit at [facility] about two weeks ago, pt has h/o noncompliance with meds, pt brought herself to the hospital for evaluation of paranoia, feeling of people are after her, pt accused one of the neighbour that he is chasing her. pt failed outpatient treatment, needs further evaluation and stabilization in psych inpatient unit. pt was seen at the morning at the treatment team meeting, discussed with staff, labs reviewed, pt has WBC elevated and signs of UTI, was seen by medical team. pt presented to have poor personal hygiene, appeared much older than her chronological age, good ADLs. as per Nursing staff reported, patient was acting bizarre and paranoid, had visual hallucinations overnight, equired to stay in seclusion room, was medicated for psychosis Patient presented to be confused, bizarre, disorganized, paranoid. As per staff patient is compliant with the medications, no agitation or aggression. patient tolerated medications well, no side effects observed or reported, aims 0 , no EPS. Impression: Rule out schizoaffective disorder Most likely patient was noncompliant with the medications as per collateral information from the patient and daughter, patient was afraid to go back to her apartment after the last discharge see socially responsible investment adviser notes for more detailed information. Medication Change: Yes (Seroquel increased yesterday) Medical Record Reviewed: Yes Consults ordered or reviewed: patient was seen by her primary care physician Dr. Osorio Mental Status Examination - Cognitive Function Orientation: Person, Place Memory: Intact Attention: Poor Concentration: Poor Association: Loose Fund of Knowledge: Poor - Mood Mood: Depressed, Anxious - Affect Affect: Constricted - Formal Thought Process Formal Thought Process: Hallucinations, Delusions, Paranoia, Loosening of associations, Circumstantial - Suicidal Ideation Suicidal Ideation: No - Homicidal Ideation Homicidal Ideation: No Goal/Treatment Plan - Goal/Treatment Plan Need for Continued Stay: Remain at risks for inpatient hospitalization, Severe depression anxiety, Discharge may exacerbated symptoms, Failed transitioning, Severe functional impairment Progress Toward Problem(s) and Goals/Treatment Plan: Milieu/structure/supportive therapy Medical consult appreciated, see medical team note for more detailed info SW consultation for discharge plan and social issues Med management seroquel increased lamictal continued sonata as needed for insomnia klonopin for anxiety pharmacy was contacted, meds confirmed family involvement Follow up on labs Will monitor closely Pt was educated about risk/benefits and alternatives of medications, coping strategies (safety plan, suicide prevention), relapse prevention, importance of follow up with psychiatrist and therapist, stay away from drugs/alcohol/smoking Estimated Date of D/C: 07/14/17
[2017-07-09] MEDS: QUEtiapine 300 mg XR Tab PO SCH (17:46)
--- NOTE | 2017-07-09 20:54 | US ---
EXAM: US Retroperitoneal Complete, Renal EXAM DATE/TIME: 07/09/2017 6:11 PM CLINICAL HISTORY: 57 years old, female; Abnormal findings; Abnormal lab test; Abnormal kidney function lab tests; Additional info: Rene, low k, ? ? adrenal nodule TECHNIQUE: Real-time ultrasound of the retroperitoneum (complete) with image documentation. COMPARISON: No relevant prior studies available. FINDINGS: Limitations: Overall suboptimal visualization, due to the patient's body habitus. Right kidney: Somewhat poorly seen due to gas. Within normal limits in appearance. Measures 9.9 cm in length. No evidence of hydronephrosis. Left kidney: Somewhat poorly seen due to gas. A 1.3 x 0.8 x 1.1 cm hypoechoic lesion is seen in the left kidney. This most likely represents a cyst, but it is not definitively characterized on this exam. IMPRESSION: No acute sonographic abnormality of the kidneys. No adrenal nodules seen, but note that abdominal CT is significantly more sensitive for the detection of adrenal nodules compared to ultrasound. 1.3 cm left renal lesion, most likely a cyst, but not definitively characterized. If indicated clinically, this could be further evaluated with renal protocol CT. Limited exam due to the patient's body habitus. See above for remaining findings.
--- NOTE | 2017-07-09 21:18 | CON ---
DATE: 07/08/2017 MAIN REASON FOR CONSULTATION: Patient is admitted to Psych floor and needs medical management. HISTORY OF PRESENT ILLNESS: A 57-year-old female with history of bipolar disorder, she has taken lithium and antipsychotic medications, came in because of paranoid symptoms, admitted to Dr. Rosette Miguel, who had seen her before. Patient does have a history of hypertension, hypercholesterolemia, coronary artery disease, peripheral vascular disease, morbid obesity, breast cancer. She takes multiple medications. Currently, the patient has no chest pain, no short of breath. No nausea, no vomiting. No fever, no chills. She does have a history of COPD, seems stable. Otherwise, no new complaints physically. PAST MEDICAL HISTORY: As I mentioned above, partial mastectomy, left breast. She had a chemo and radiation in the past by Dr. Barnett. She has peripheral vascular disease with coronary artery disease, she had cardiac bypass surgery, she had hypertension, hypercholesterolemia, morbid obesity, COPD, chronic anxiety, bipolar disorder. ALLERGY: NO KNOWN ALLERGIES. SOCIAL HISTORY: No smoking, no drinking. She lives alone, she has daughter supporting here. FAMILY HISTORY: Noncontributory. MEDICATIONS: At home, she takes multiple medications including nebulizer treatment, albuterol, potassium 20 once a day, Newton-3, Flonase, Advair, Klonopin 0.5 t.i.d., Percocet p.r.n. for back pain and shoulder pain, Seroquel 100 t.i.d., Aromasin 25 p.o. daily, Seroquel 300 p.o. nightly, lithium 450 b.i.d., Lamictal 100 b.i.d., Antivert 12.5 t.i.d., 81 mg aspirin once a day, Norvasc 5 mg nightly, Pepcid 40 daily, Lipitor 20, Lasix 40, Lexapro 10, Zaroxolyn 5 mg p.o. daily, Aldactone 25 b.i.d., Lopressor 50 b.i.d. She is taking B12 once a day and Lisa, cetirizine 10 mg once a day. REVIEW OF SYSTEMS: Shows complaint of shoulder pains, knee pains, tiredness. She feels sometimes depressed. No chest pain, no short of breath. PHYSICAL EXAMINATION: VITAL SIGNS: On the , she has the following, temperature 97.7, heart rate is 92, blood pressure 162/84, respirations 18, saturation 97% on room air. HEAD AND NECK: Normal. No JVD, no thyromegaly. CHEST: Seems clear. Few rhonchi, otherwise normal. CARDIAC: First sound and second sound normal. ABDOMEN: Soft, obese, nontender. EXTREMITIES: No edema. NEUROLOGIC: Normal. LABORATORY DATA: White count 12.6, hemoglobin 11.9, hematocrit 36.5, platelets 199. Patient has chemistry noted for sodium 140, potassium 3.1, chloride 101, bicarb 28, BUN 26, creatinine 1.5. Blood sugar 123, calcium 10.8, and liver enzymes are normal. IMPRESSION: A 57-year-old female was admitted with paranoid and psychotic features, bipolar disorder. Patient does suffer from hypertension, hypercholesterolemia, chronic obstructive pulmonary disease. We will resume all her medical treatment including Norvasc, clonidine p.r.n. We may need to increase Norvasc to 10 mg. Resume all her nebulizer treatments and cholesterol medications. We will get the LDL level in the morning, TSH, and we will follow up clinically. She also has morbid obesity, chronic obstructive pulmonary disease. She may benefit from sleep apnea treatment and inhaled bronchodilators, repeat labs in the morning. Thank you for this consultation. Ari Osorio MD
--- NOTE | 2017-07-09 21:55 | PN ---
DATE: 07/09/2017 SUBJECTIVE: The patient is seen in the Psych unit. She is awake. She is alert. She is comfortable. PHYSICAL EXAMINATION: GENERAL: Obese elderly lady, sitting in chair. VITAL SIGNS: Blood pressure 178/89, heart rate 65, respiratory rate 18, temperature 97.7. HEENT: Normocephalic, atraumatic. NECK: Supple, no JVD. LUNGS: Bilateral equal air entry, bilateral equal expansion, no rales. CARDIAC: S1 and S2, regular rate and rhythm, no murmur, no rub. ABDOMEN: Obese, distended, soft, nontender, bowel sounds present. EXTREMITIES: No lower extremity edema. INTAKE AND OUTPUT: Not charted. LABORATORY DATA: WBC 10.8, hemoglobin 12.6. Sodium 142, potassium 3.4, chloride 101, CO2 of 28, BUN 25, creatinine 1.2, glucose 112, calcium 10.9, phosphorus 3, magnesium 1.8. CURRENT MEDICATIONS: Aldactone 25 b.i.d., Antivert, Aromasin, Catapres, Claritin, DuoNeb, aspirin, Klonopin, Lamictal, Lasix 40 mg daily, Lexapro, Lipitor, Lopressor 50 b.i.d., amlodipine 10, Seroquel, Singulair, Sonata, Tylenol. ASSESSMENT: 1. Acute kidney injury, resolving, ? prerenal azotemia. 2. Severe hypokalemia. 3. Severe hypertension. 4. Bipolar disorder. PLAN: 1. Renal ultrasound. 2. Follow up plasma renin and aldosterone. 3. ? hyperaldosteronism. 4. Increase Aldactone to 50 b.i.d. 5. Hypercalcemia, ? primary hyperparathyroidism. Follow up PTH. Geovanna Biswas MD
--- NOTE | 2017-07-10 01:05 | PN ---
DATE: PULMONARY PROGRESS NOTE REFERRING PHYSICIAN: Dr. Dinero. SUBJECTIVE: Patient is sitting up in a chair, sleepy, arousable. Night was unremarkable. Had a good night's sleep, refused to use CPAP. No headache, no rhinitis. No nausea. No vomiting or diarrhea. No leg pain or leg swelling. No cough or sputum production. OBJECTIVE: GENERAL: In no acute distress. VITAL SIGNS: Temperature is 98, heart rate 68, respiratory rate is 18, blood pressure is 169/92, pulse ox 94% on room air. HEENT: Moist mucous membrane. Crowded airway. Mallampati score is 4. NECK: Supple. No JVD. LUNGS: Has fair airflow with rhonchi. HEART: S1 and S2. ABDOMEN: Soft, nontender. No organomegaly. EXTREMITIES: No edema. NEUROLOGIC: Sleepy, arousable. Follows simple command. MEDICATIONS: She is on Aldactone 50 mg twice a day, Antivert 12.5 mg three times a day, Aromasin 25 mg daily, clonidine 0.1 mg every 6 hours p.r.n., Claritin 10 mg daily, DuoNeb every 6 hours p.r.n., Ecotrin 81 g daily, clonazepam 0.5 mg three times a day p.r.n., potassium 10 mEq daily, Lamictal 100 mg twice a day, Lasix 40 mg daily, Lexapro 10 mg daily, Lipitor 20 mg daily, metoprolol tartrate 50 mg twice a day, milk of magnesia p.r.n. basis, Norvasc 10 mg daily, Seroquel 150 mg daily, also Seroquel XR 300 mg daily, Singulair 10 mg daily, Sonata 5 mg at bedtime, Tylenol p.r.n. basis. LABORATORY DATA: Shows hemoglobin 12.6, hematocrit 39.0, WBC 10.8, platelets is 218. Sodium 142, potassium 3.4, chloride 101, bicarbonate 28, BUN 25, creatinine 1.2, glucose 112, calcium 10.9, magnesium is 1.8. TSH 4.4. Has a renal ultrasound done today, which shows no acute sonographic abnormality. There is a 1.3-cm left renal lesion most likely cyst. IMPRESSION AND PLAN: Chronic obstructive lung disease, obstructive sleep apnea syndrome, bipolar with depression, diabetes, hypertension, coronary artery disease, obesity, refusing to use continuous positive airway pressure. Pulmonary point of view, doing okay. Noted hypertensive medications are being optimized, sleep apnea precaution, avoid sedation. Fall precaution. Thank you and we will follow with you. Ponce Daniel MD
--- NOTE | 2017-07-10 09:13 | PCM.PYCHPN ---
Psychiatric Progress Note - Psychiatric Progress Note Patient seen today, length of contact: 25 minutes Problems Identified/Issues Discussed: I reviewed recent notes and met with patient at bedside. Patient is known to me from her prior admission to this unit 2-3 weeks ago. She has been bizarre, confused, paranoid and delusional on the unit. Experiencing visual hallucinations with periods of distress and fear. As per staff patient is compliant with the medications, she denies any new pain , discomfort or side effects. She still appears guarded, preoccupied and paranoid. Asks that I close the door to her room to conduct interview and speaks to me softly, mostly from under her covers. She is oriented to location, month and year. Her insight into current admission is superficial and thought process is inconsistent and forgetful. For example patient reports that she slept well last night and then asks me for a sleeping aid a few minutes later. Patient remains symptomatic and unpredictable Diagnostic Results: Rule out schizoaffective disorder Most likely patient was noncompliant with the medications Medication Change: No ( ) Medical Record Reviewed: Yes Mental Status Examination - Cognitive Function Orientation: Person, Place Memory: Intact Attention: Poor Concentration: Poor Association: Loose Fund of Knowledge: Poor - Mood Mood: Depressed, Anxious - Affect Affect: Constricted (guarded, preoccupied and paranoid) - Formal Thought Process Formal Thought Process: Hallucinations, Delusions, Paranoia, Loosening of associations, Circumstantial - Suicidal Ideation Suicidal Ideation: No - Homicidal Ideation Homicidal Ideation: No Goal/Treatment Plan - Goal/Treatment Plan Need for Continued Stay: Remain at risks for inpatient hospitalization, Severe depression anxiety, Discharge may exacerbated symptoms, Failed transitioning, Severe functional impairment Progress Toward Problem(s) and Goals/Treatment Plan: * c/w current tx and plan * Vitals reviewed and noted below: Selected Entries 07/09/17 07/09/17 07/09/17 06:27 09:00 09:01 Temperature 97.7 F Pulse Rate 68 68 Respiratory 18 Rate Blood Pressure 165/92 H 169/92 H 169/92 H O2 Sat by Pulse 94 L Oximetry 07/09/17 07/10/17 17:45 06:59 Temperature 97.6 F Pulse Rate 57 L Respiratory 18 Rate Blood Pressure 178/89 H 132/76 O2 Sat by Pulse Oximetry * No new labs thus far Estimated Date of D/C: 07/14/17
[2017-07-10] MEDS: Potassium Chloride 10 mEq ER Tab PO SCH (09:47)
[2017-07-10] MEDS: QUEtiapine 150 mg XR Tab PO SCH (09:53)
[2017-07-10] MEDS: QUEtiapine 300 mg XR Tab PO SCH (18:04)
--- NOTE | 2017-07-10 19:35 | PN ---
DATE: PULMONARY PROGRESS NOTE REFERRING PHYSICIAN: Rosette Miguel MD. SUBJECTIVE: She is lying in the bed, sleepy, arousable. Night was unremarkable. No headaches. No rhinitis. No nausea. No vomiting. No diarrhea. No leg pain or leg swelling. OBJECTIVE: GENERAL: In no acute distress. VITAL SIGNS: Temp is 98, heart rate is 66, respiratory rate is 18, blood pressure 125/60. HEENT: Moist mucous membrane. Crowded airway. NECK: Supple. No JVD. LUNGS: Have a fair airflow with a few rhonchi. HEART: S1 and S2. ABDOMEN: Soft and nontender. No organomegaly. EXTREMITIES: There is no edema. NEUROLOGICAL: Sleepy, arousable. Follows simple command. LABORATORY DATA: Reviewed and noted. No new lab is available since yesterday. MEDICATIONS: She is on Aldactone 50 mg twice a day, meclizine 12.5 mg 3 times a day, Aromasin 25 mg daily, clonidine 0.1 mg every 6 hours p.r.n., Claritin 10 mg daily, Duoneb every 6 hours p.r.n., Ecotrin 81 mg daily, Klonopin 0.5 mg 3 times a day p.r.n., potassium 10 mEq daily, Lamictal 100 mg twice a day, Lasix 40 mg daily, Lexapro 10 mg daily, Lipitor 20 mg at bedtime, metoprolol tartrate 50 mg twice a day, Miralax p.r.n. basis, milk of magnesia 10 mL daily p.r.n., Norvasc 10 mg daily, Seroquel XR 150 mg in the morning and 300 mg at bedtime, Singulair 10 mg daily, zaleplon 5 mg at bedtime p.r.n., Tylenol p.r.n. IMPRESSION AND PLAN: Chronic obstructive lung disease, obstructive sleep apnea syndrome, bipolar disorder with depression, diabetes, hypertension, coronary artery disease, obesity. Sleep apnea precaution. Keep head of bed at 45 degrees. The patient refusing to use continuous positive airway pressure. Continue p.o. and inhaled bronchodilator. Gastric prophylaxis. Fall precautions. Continue therapy. Thank you and we will follow with you. Ponce Daniel MD [facility] # [id number]
--- NOTE | 2017-07-11 09:09 | PCM.PYCHPN ---
Psychiatric Progress Note - Psychiatric Progress Note Patient seen today, length of contact: 25 minutes Patient Chief Complaint: "I am anxious" Problems Identified/Issues Discussed: I reviewed recent notes and met with patient at bedside. Patient is known to me from her prior admission to this unit 2-3 weeks ago. She has been bizarre, confused, paranoid and delusional on the unit since her readmission on 07/07/17. I meet with patient at bedside. She is oriented to location, month and year. Her insight into current admission remains superficial. She still appears guarded, preoccupied and paranoid. Has been fearful and stays in her room most of the time, specifically asking that her door remains closed. She doesn't socialize or attend groups even with encouragement. Patient tells me that she is paranoid and anxious about other patients wanting to harm her. She doesn't identify anyone in particular. As per staff patient is compliant with the medications, she denies any new pain , discomfort or side effects. She denies hallucinations and reports she slept well last night. There were no major behavioral issues last night. Diagnostic Results: Rule out schizoaffective disorder Most likely patient was noncompliant with the medications Medication Change: No ( ) Medical Record Reviewed: Yes Mental Status Examination - Cognitive Function Orientation: Person, Place Memory: Intact Attention: Poor Concentration: Poor Association: Loose Fund of Knowledge: Poor - Mood Mood: Depressed, Anxious - Affect Affect: Constricted (guarded, preoccupied and paranoid), Other (anxious) - Formal Thought Process Formal Thought Process: Hallucinations, Delusions, Paranoia, Loosening of associations, Circumstantial - Suicidal Ideation Suicidal Ideation: No - Homicidal Ideation Homicidal Ideation: No Goal/Treatment Plan - Goal/Treatment Plan Need for Continued Stay: Remain at risks for inpatient hospitalization, Severe depression anxiety, Discharge may exacerbated symptoms, Failed transitioning, Severe functional impairment Progress Toward Problem(s) and Goals/Treatment Plan: * c/w current tx and plan * Appreciate f/u by Dr. Daniel on 07/10/17~Sleep apnea precautions, patient refuses to use CPAP. * Vitals reviewed and noted below: 07/11/17 07:40 Temperature 98.5 F Pulse Rate 58 L Respiratory 20 Rate Blood Pressure 124/72 * No new weekend labs thus far Estimated Date of D/C: 07/14/17
[2017-07-11] MEDS: QUEtiapine 150 mg XR Tab PO SCH (09:10)
[2017-07-11] MEDS: Potassium Chloride 10 mEq ER Tab PO SCH (09:11)
--- NOTE | 2017-07-11 17:20 | PN ---
DATE: 07/11/2017 SUBJECTIVE: The patient is seen walking in the hallway. She is awake. She is alert. She reports that she is less scared. PHYSICAL EXAMINATION: GENERAL: Middle-aged obese lady. VITAL SIGNS: Blood pressure 126/76, heart rate 66, respiratory rate 20, temperature 98.5. LUNGS: Bilateral equal entry, no rales. EXTREMITIES: No lower extremity edema. LABORATORY DATA: Hemoglobin 12.6, potassium 3.4, calcium 10.9, PTH pending. MEDICATIONS: Aldactone 50 b.i.d., Catapres p.r.n., Lasix 40 daily. ASSESSMENT: 1. History of congestive heart failure, currently compensated. 2. Hypokalemia, increased Aldactone to 50 b.i.d., workup pending including aldosterone and renin activity. 3. Hypercalcemia, ? primary hyperparathyroidism. PLAN: 1. Continue Lasix. 2. Continue Aldactone 50 b.i.d. 3. Followup workup ordered. Geovanna Biswas MD
[2017-07-11] MEDS: QUEtiapine 300 mg XR Tab PO SCH (17:26)
--- NOTE | 2017-07-11 23:49 | PN ---
DATE: PULMONARY PROGRESS NOTE REFERRING PHYSICIAN: Rosette Miguel MD. SUBJECTIVE: The patient is ambulating. Night was unremarkable. Complaining of mild shortness of breath with cough. No nausea. No vomiting. No diarrhea. No leg pain or leg swelling. OBJECTIVE: GENERAL: In no acute distress. VITAL SIGNS: Temp is 98, heart rate is 66, respiratory rate is 20, blood pressure 126/76. HEENT: Moist mucous membrane. Crowded airway. NECK: Supple. No JVD. LUNGS: Have a fair airflow, with few rhonchi. HEART: S1 and S2. ABDOMEN: Soft and nontender. No organomegaly. EXTREMITIES: No edema. NEUROLOGICAL: Awake and alert. Follows simple command. LABORATORY DATA: Reviewed, no new lab is available. MEDICATIONS: She is on Aldactone 50 mg twice a day, Antivert 12.5 mg 3 times a day, Aromasin 25 mg daily, clonidine 0.1 mg every 6 hours p.r.n., Claritin 10 mg daily, Duoneb every 6 hours p.r.n., Ecotrin 81 mg daily, Klonopin 0.5 mg 3 times a day p.r.n., potassium 40 mEq daily, Lamictal 100 mg twice a day, Lasix 40 mg daily, Lexapro 10 mg daily, Lipitor 20 mg at bedtime, metoprolol tartrate 50 mg twice a day, milk of magnesia p.r.n. basis, Norvasc 10 mg daily, Seroquel 300 mg daily, Singulair 10 mg at bedtime, Sonata 5 mg at bedtime p.r.n., Tylenol p.r.n. basis. IMPRESSION AND PLAN: Chronic obstructive lung disease, obstructive sleep apnea syndrome, bipolar disorder with depression, diabetes, hypertension, coronary artery disease, sleep apnea syndrome. Pulmonary point of view, doing alright, but we will add Advair 250/50 one puff twice a day, Ventolin HFA every 4 hours p.r.n. Sleep apnea precaution. Keep head of bed at 45 degrees. Gastric prophylaxis. Fall precautions. Thank you and we will follow with you. Ponce Daniel MD
[2017-07-12] MEDS: Fluticasone-Salmeterol 250-50mcg Diskus IH SCH ×2 (06:38→17:24)
[2017-07-12 07:58] LABS: HEMOGLOBIN 12.8 g/dL (12.0-16.0); MEAN CELL VOLUME 91.3 fl (80.0-105.0); MEAN CORPUSCULAR HEMOGLOBIN 29.4 pg (25.0-35.0); MEAN CORPUSCULAR HGB CONC 32.2 g/dl (31.0-37.0); MEAN PLATELET VOLUME 10.5 fl (7.0-11.0); RBC 4.35 10^6/uL (3.5-6.1); RED CELL DISTRIBUTION WIDTH 14.7 % (11.5-14.5); WHITE BLOOD COUNT 8.8 10^3/ul (4.5-11.0)
[2017-07-12 08:10] LABS: CALCIUM 10.6 mg/dL (8.4-10.5)
[2017-07-12] MEDS: QUEtiapine 150 mg XR Tab PO SCH (09:21)
[2017-07-12] MEDS: Potassium Chloride 10 mEq ER Tab PO SCH (09:24)
--- NOTE | 2017-07-12 14:12 | PCM.PYCHPN ---
Psychiatric Progress Note - Psychiatric Progress Note Patient seen today, length of contact: 30 minutes Patient Chief Complaint: ", I feel great, love-love-love" Problems Identified/Issues Discussed: Suicide/ homicide prevention, past psychiatric h/o, current psychiatric symptoms , medical problems, risk/benefits and alternatives of medications, medications compliance, coping strategies, substance abuse h/o, relapse prevention, importance of follow up with psychiatrist and therapist, discharge plan. Medical Problems: see HPI Diagnostic Results: 07/09/17 08:00 07/09/17 08:00 Lab Results 07/09/17 08:00: WBC 10.8, RBC 4.26, Hgb 12.6, Hct 39.0, MCV 91.5, MCH 29.6, MCHC 32.3, RDW 14.6 H, Plt Count 218, MPV 10.5, Gran % 72.8 H, Lymph % (Auto) 17.5 L, [place] % (Auto) 4.5, Eos % (Auto) 4.7, Baso % (Auto) 0.5, Gran # 7.86 H, Lymph # (Auto) 1.9, [place] # (Auto) 0.5, Eos # (Auto) 0.5, Baso # (Auto) 0.05 07/09/17 08:00: Sodium 142, Potassium 3.4 L, Chloride 101, Carbon Dioxide 28, Anion Gap 15, BUN 25 H, Creatinine 1.2, Est GFR ( Amer) 56, Est GFR (Non- Af Amer) 46, Random Glucose 112 H, Calcium 10.9 H, Phosphorus 3.0, Magnesium 1.8 07/08/17 08:00: RPR Nonreactive 07/08/17 08:00: TSH 3rd Generation 4.40 07/08/17 08:00: Fasting Glucose 118 H, Triglycerides 215 H, Cholesterol 216 H, LDL Cholesterol Direct 136 H, HDL Cholesterol 40 07/07/17 15:55: Alcohol, Quantitative < 10 07/07/17 15:55: Salicylates < 1 L, Acetaminophen < 10.0 L 07/07/17 15:55: Sodium 140, Potassium 3.1 L, Chloride 101, Carbon Dioxide 28, Anion Gap 14, BUN 26 H, Creatinine 1.5 H, Est GFR ( Amer) 43, Est GFR ( Non-Af Amer) 36, Random Glucose 123 H, Calcium 10.8 H, Total Bilirubin 0.7, AST 36 D, ALT 43, Alkaline Phosphatase 91, Total Protein 7.2, Albumin 4.8, Globulin 2.5, Albumin/Globulin Ratio 1.9 H 07/07/17 15:55: WBC 12.6 H D, RBC 4.01, Hgb 11.9 L, Hct 36.5, MCV 91.0, MCH 29.7 , MCHC 32.6, RDW 14.7 H, Plt Count 199, MPV 10.2, Gran % 74.2 H, Lymph % (Auto) 16.1 L, [place] % (Auto) 6.0, Eos % (Auto) 3.5, Baso % (Auto) 0.2, Gran # 9.37 H, Lymph # (Auto) 2.0, [place] # (Auto) 0.8 H, Eos # (Auto) 0.4, Baso # (Auto) 0.03 07/07/17 15:54: Urine Opiates Screen Negative, Urine Methadone Screen Negative, Ur Barbiturates Screen Negative, Ur Phencyclidine Scrn Negative, Ur Amphetamines Screen Negative, U Benzodiazepines Scrn Negative, U Oth Cocaine Metabols Negative, U Cannabinoids Screen Negative 07/07/17 15:54: Urine Color Yellow, Urine Appearance Clear, Urine pH 6.5, Ur Specific [place] 1.015, Urine Protein 30 H, Urine Glucose (UA) Negative, Urine Ketones Negative, Urine Blood Trace-intact H, Urine Nitrate Negative, Urine Bilirubin Negative, Urine Urobilinogen 0.2, Ur Leukocyte Esterase Trace H, Urine RBC 0 - 2, Urine WBC 2 - 5, Ur Epithelial Cells 3 - 4, Urine Bacteria Few Vital Signs Temp Pulse Pulse Resp BP Pulse Ox 07/09/17 09:01 68 169/92 H 07/09/17 09:00 169/92 H 07/09/17 06:27 97.7 F 68 18 165/92 H 94 L 07/08/17 17:46 59 L 152/82 H 07/08/17 16:00 59 L 152/82 H 07/08/17 09:50 70 148/76 07/08/17 09:48 148/76 07/08/17 07:34 97.8 F 70 20 148/76 07/07/17 22:00 97.7 F 66 66 18 149/76 99 07/07/17 20:57 90 18 157/90 H 98 07/07/17 19:15 92 H 18 162/84 H 97 07/07/17 17:00 88 18 155/79 H 98 07/07/17 15:07 98 F 90 18 175/57 H 98 Temp Pulse Resp BP Pulse Ox 98.1 F 55 L 20 143/66 94 L 07/12/17 07:22 07/12/17 09:24 07/12/17 07:22 07/12/17 09:24 07/09/17 06:27 Laboratory Results - last 24 hr 07/09/17 07/12/17 07/12/17 08:00 07:20 07:20 WBC 8.8 RBC 4.35 Hgb 12.8 Hct 39.7 MCV 91.3 MCH 29.4 MCHC 32.2 RDW 14.7 H Plt Count 211 MPV 10.5 Sodium 144 Potassium 3.6 Chloride 101 Carbon Dioxide 32 Anion Gap 15 BUN 27 H Creatinine 1.4 H Est GFR ( Amer) 47 Est GFR (Non-Af Amer) 39 Random Glucose 109 Calcium 10.6 H Phosphorus 3.2 Magnesium 2.0 Albumin PTH Intact Whole Molec 80 H 07/12/17 08:00 WBC RBC Hgb Hct MCV MCH MCHC RDW Plt Count MPV Sodium Potassium Chloride Carbon Dioxide Anion Gap BUN Creatinine Est GFR ( Amer) Est GFR (Non-Af Amer) Random Glucose Calcium Phosphorus Magnesium Albumin 4.7 PTH Intact Whole Molec DSM 5 Symptoms Update: shortly pt is 57 y/o female, with reported h/o bipolar disorder, r/o schizoaffective disorder, pt denied h/o suicidal attempts, lives alone in senior citizen building for the past year, has two grown daughters, does not work, on disability, attends to [employer], multiple medical issues including htn/chf/copd, 1 recent psychiatric admission at psych unit at [facility] about two weeks ago, pt has h/o noncompliance with meds, pt brought herself to the hospital for evaluation of paranoia, feeling of people are after her, pt accused one of the neighbour that he is chasing her. pt failed outpatient treatment, needs further evaluation and stabilization in psych inpatient unit. pt was seen at the morning next to the nursing station, discussed with staff, labs reviewed, as per report by nursing staff patient is still psychotic but slowly improving,patient required to be in quiet from Wednesday and Wednesday, yesterday Wednesday patient refused to leave the room, pt asked "nothing is going to happen to me, right?" unit a lot of car encouragement from the nursing staff. The patient reported "I feel great love-love- love", patient wanted to present less sicker than she is, patient still presented to be guarded, paranoid, thought process is circumstantial and tangential, patient asked to have family meeting with her daughter. As per staff patient is compliant with the medications, no agitation or aggression. patient tolerated medications well, no side effects observed or reported, aims 0 , no EPS. Impression: Rule out schizoaffective disorder Most likely patient was noncompliant with the medications as per collateral information from the patient and daughter, patient was afraid to go back to her apartment after the last discharge see social media marketing analyst notes for more detailed information. Medication Change: Yes (Seroquel increased) Medical Record Reviewed: Yes Consults ordered or reviewed: patient was seen by her primary care physician Dr. Osorio Mental Status Examination - Cognitive Function Orientation: Person, Place Memory: Intact Attention: Poor Concentration: Poor Association: Loose Fund of Knowledge: Poor - Mood Mood: Depressed, Anxious - Affect Affect: Constricted (guarded, preoccupied and paranoid), Other (anxious) - Formal Thought Process Formal Thought Process: Hallucinations, Delusions, Paranoia, Loosening of associations, Circumstantial - Suicidal Ideation Suicidal Ideation: No - Homicidal Ideation Homicidal Ideation: No Goal/Treatment Plan - Goal/Treatment Plan Need for Continued Stay: Remain at risks for inpatient hospitalization, Severe depression anxiety, Discharge may exacerbated symptoms, Failed transitioning, Severe functional impairment Progress Toward Problem(s) and Goals/Treatment Plan: Milieu/structure/supportive therapy Medical consult appreciated, see medical team note for more detailed info SW consultation for discharge plan and social issues Med management seroquel increased to 300 mg at the morning time at the nighttime for psychosis and mood stabilization lamictal continued sonata as needed for insomnia klonopin for anxiety pharmacy was contacted, meds confirmed family involvement Follow up on labs Will monitor closely Pt was educated about risk/benefits and alternatives of medications, coping strategies (safety plan, suicide prevention), relapse prevention, importance of follow up with psychiatrist and therapist, stay away from drugs/alcohol/smoking family meeting requested Estimated Date of D/C: 07/14/17
[2017-07-12] MEDS: QUEtiapine 300 mg XR Tab PO SCH (17:17)
[2017-07-13 01:34] LABS: ALDO/PRA RATIO 2.1 Ratio (0.9-28.9)
--- NOTE | 2017-07-13 02:26 | PN ---
DATE: 07/12/2017 PULMONARY PROGRESS NOTE REFERRING PHYSICIAN: Rosette Miguel MD. SUBJECTIVE: She is sitting in the dining table, having dinner. Night was unremarkable. Had some shortness of breath. Awaiting for bronchodilators. No nausea. No vomiting or diarrhea. No leg pain or leg swelling. OBJECTIVE: GENERAL: In no acute distress. VITAL SIGNS: Temperature is 98, heart rate 75, respiratory rate is 20, blood pressure 150/80. HEENT: Moist mucous membranes. Crowded airway. NECK: Supple. No JVD. LUNGS: Have a fair airflow with few rhonchi. HEART: S1, S2. ABDOMEN: Soft, nontender. No organomegaly. EXTREMITIES: There is no edema. NEUROLOGICAL: Awake, alert. Follows simple command. MEDICATIONS: She is on Advair 250/50 one puff twice a day, Aldactone 50 mg twice a day, Antivert 12.5 mg three times a day, Aromasin 25 mg daily, clonidine 0.1 mg every 6 hours p.r.n., Claritin 10 mg daily, albuterol and Atrovent nebulizer every 6 hours p.r.n., Ecotrin 81 mg daily, clonazepam 0.5 mg three times a day p.r.n., potassium 10 mEq daily, Lamictal 100 mg twice a day, Lasix 40 mg daily, Lexapro 10 mg daily, Lipitor 20 mg daily, metoprolol tartrate 50 mg twice a day, MiraLax p.r.n. basis, Norvasc 10 mg daily, quetiapine 300 mg daily, also quetiapine 300 mg in the evening, Singulair 10 mg daily, Sonata 5 mg at bedtime p.r.n., Tylenol p.r.n., Ventolin HFA two cuff every 4 hours p.r.n. for shortness of breath. LABORATORY DATA: Hemoglobin 12.8, hematocrit 39.7, WBC 8.8, platelet count is 211. Sodium 144, potassium 3.6, chloride 101, bicarbonate 32, BUN 27, creatinine 1.4, glucose is 109, calcium is 10.6, phosphorous 3.2, magnesium 2.2, albumin 4.7. IMPRESSION AND PLAN: Chronic obstructive lung disease, obstructive sleep apnea syndrome, bipolar disorder with depression, diabetes, hypertension, coronary artery disease, sleep apnea syndrome. Pulmonary point of view, doing okay. Continue inhaled bronchodilator. Spoke to nursing staff to ensure she is receiving her bronchodilator. Fall precaution. Continue therapy. Sleep apnea precaution. Careful with sedation. Thank you and we will follow with you. Ponce Daniel MD
[2017-07-13] MEDS: Fluticasone-Salmeterol 250-50mcg Diskus IH SCH ×2 (06:43→18:04)
[2017-07-13] MEDS: Potassium Chloride 10 mEq ER Tab PO SCH (08:34)
[2017-07-13] MEDS: QUEtiapine 150 mg XR Tab PO SCH (08:36)
--- NOTE | 2017-07-13 13:28 | PCM.PYCHPN ---
Psychiatric Progress Note - Psychiatric Progress Note Patient seen today, length of contact: 30 minutes Patient Chief Complaint: ", I feel great, I feel okay..." Problems Identified/Issues Discussed: Suicide/ homicide prevention, past psychiatric h/o, current psychiatric symptoms , medical problems, risk/benefits and alternatives of medications, medications compliance, coping strategies, substance abuse h/o, relapse prevention, importance of follow up with psychiatrist and therapist, discharge plan. Medical Problems: see HPI Diagnostic Results: 07/09/17 08:00 07/09/17 08:00 Lab Results 07/09/17 08:00: WBC 10.8, RBC 4.26, Hgb 12.6, Hct 39.0, MCV 91.5, MCH 29.6, MCHC 32.3, RDW 14.6 H, Plt Count 218, MPV 10.5, Gran % 72.8 H, Lymph % (Auto) 17.5 L, [place] % (Auto) 4.5, Eos % (Auto) 4.7, Baso % (Auto) 0.5, Gran # 7.86 H, Lymph # (Auto) 1.9, [place] # (Auto) 0.5, Eos # (Auto) 0.5, Baso # (Auto) 0.05 07/09/17 08:00: Sodium 142, Potassium 3.4 L, Chloride 101, Carbon Dioxide 28, Anion Gap 15, BUN 25 H, Creatinine 1.2, Est GFR ( Amer) 56, Est GFR (Non- Af Amer) 46, Random Glucose 112 H, Calcium 10.9 H, Phosphorus 3.0, Magnesium 1.8 07/08/17 08:00: RPR Nonreactive 07/08/17 08:00: TSH 3rd Generation 4.40 07/08/17 08:00: Fasting Glucose 118 H, Triglycerides 215 H, Cholesterol 216 H, LDL Cholesterol Direct 136 H, HDL Cholesterol 40 07/07/17 15:55: Alcohol, Quantitative < 10 07/07/17 15:55: Salicylates < 1 L, Acetaminophen < 10.0 L 07/07/17 15:55: Sodium 140, Potassium 3.1 L, Chloride 101, Carbon Dioxide 28, Anion Gap 14, BUN 26 H, Creatinine 1.5 H, Est GFR ( Amer) 43, Est GFR ( Non-Af Amer) 36, Random Glucose 123 H, Calcium 10.8 H, Total Bilirubin 0.7, AST 36 D, ALT 43, Alkaline Phosphatase 91, Total Protein 7.2, Albumin 4.8, Globulin 2.5, Albumin/Globulin Ratio 1.9 H 07/07/17 15:55: WBC 12.6 H D, RBC 4.01, Hgb 11.9 L, Hct 36.5, MCV 91.0, MCH 29.7 , MCHC 32.6, RDW 14.7 H, Plt Count 199, MPV 10.2, Gran % 74.2 H, Lymph % (Auto) 16.1 L, [place] % (Auto) 6.0, Eos % (Auto) 3.5, Baso % (Auto) 0.2, Gran # 9.37 H, Lymph # (Auto) 2.0, [place] # (Auto) 0.8 H, Eos # (Auto) 0.4, Baso # (Auto) 0.03 07/07/17 15:54: Urine Opiates Screen Negative, Urine Methadone Screen Negative, Ur Barbiturates Screen Negative, Ur Phencyclidine Scrn Negative, Ur Amphetamines Screen Negative, U Benzodiazepines Scrn Negative, U Oth Cocaine Metabols Negative, U Cannabinoids Screen Negative 07/07/17 15:54: Urine Color Yellow, Urine Appearance Clear, Urine pH 6.5, Ur Specific [place] 1.015, Urine Protein 30 H, Urine Glucose (UA) Negative, Urine Ketones Negative, Urine Blood Trace-intact H, Urine Nitrate Negative, Urine Bilirubin Negative, Urine Urobilinogen 0.2, Ur Leukocyte Esterase Trace H, Urine RBC 0 - 2, Urine WBC 2 - 5, Ur Epithelial Cells 3 - 4, Urine Bacteria Few Vital Signs Temp Pulse Pulse Resp BP Pulse Ox 07/09/17 09:01 68 169/92 H 07/09/17 09:00 169/92 H 07/09/17 06:27 97.7 F 68 18 165/92 H 94 L 07/08/17 17:46 59 L 152/82 H 07/08/17 16:00 59 L 152/82 H 07/08/17 09:50 70 148/76 07/08/17 09:48 148/76 07/08/17 07:34 97.8 F 70 20 148/76 07/07/17 22:00 97.7 F 66 66 18 149/76 99 07/07/17 20:57 90 18 157/90 H 98 07/07/17 19:15 92 H 18 162/84 H 97 07/07/17 17:00 88 18 155/79 H 98 07/07/17 15:07 98 F 90 18 175/57 H 98 Temp Pulse Resp BP Pulse Ox 98.1 F 55 L 20 143/66 94 L 07/12/17 07:22 07/12/17 09:24 07/12/17 07:22 07/12/17 09:24 07/09/17 06:27 Laboratory Results - last 24 hr 07/09/17 07/12/17 07/12/17 08:00 07:20 07:20 WBC 8.8 RBC 4.35 Hgb 12.8 Hct 39.7 MCV 91.3 MCH 29.4 MCHC 32.2 RDW 14.7 H Plt Count 211 MPV 10.5 Sodium 144 Potassium 3.6 Chloride 101 Carbon Dioxide 32 Anion Gap 15 BUN 27 H Creatinine 1.4 H Est GFR ( Amer) 47 Est GFR (Non-Af Amer) 39 Random Glucose 109 Calcium 10.6 H Phosphorus 3.2 Magnesium 2.0 Albumin PTH Intact Whole Molec 80 H 07/12/17 08:00 WBC RBC Hgb Hct MCV MCH MCHC RDW Plt Count MPV Sodium Potassium Chloride Carbon Dioxide Anion Gap BUN Creatinine Est GFR ( Amer) Est GFR (Non-Af Amer) Random Glucose Calcium Phosphorus Magnesium Albumin 4.7 PTH Intact Whole Molec Laboratory Results - last 24 hr 07/09/17 08:00 Renin 4.33 Aldosterone 9 Aldosterone/Renin Ratio 2.1 DSM 5 Symptoms Update: shortly pt is 57 y/o female, with reported h/o bipolar disorder, r/o schizoaffective disorder, pt denied h/o suicidal attempts, lives alone in senior citizen building for the past year, has two grown daughters, does not work, on disability, attends to [employer], multiple medical issues including htn/chf/copd, 1 recent psychiatric admission at psych unit at [facility] about two weeks ago, pt has h/o noncompliance with meds, pt brought herself to the hospital for evaluation of paranoia, feeling of people are after her, pt accused one of the neighbour that he is chasing her. pt failed outpatient treatment, needs further evaluation and stabilization in psych inpatient unit. pt was seen at the morning at the dinning area, discussed with staff, labs reviewed, as per report by nursing staff patient is still psychotic but slowly improving, patient required to be in quiet from Wednesday and Wednesday, Wednesday patient refused to leave the room, pt asked "nothing is going to happen to me, right?". as per yesterday report pt did not exhibit any of the above mentioned behavior. Pt presented today to be alert, affect was brighter, pt is less paranoid, said that she most likely did not take meds as it was prescribed, pt was educated about the importance to take medications, patient reported that she feels dizzy on Lexapro, requested Lexapro to be discontinued. As per staff patient is compliant with the medications, yesterday patient complain of dizziness, no falls, patient ambulates with stating gait. patient tolerated medications well, no side effects observed or reported, aims 0 , no EPS. Impression: Rule out schizoaffective disorder Most likely patient was noncompliant with the medications as per collateral information from the patient and daughter, patient was afraid to go back to her apartment after the last discharge see nephrology social worker notes for more detailed information. Medication Change: Yes (Lexapro discontinued) Medical Record Reviewed: Yes Consults ordered or reviewed: patient was seen by her primary care physician Dr. Osorio Mental Status Examination - Cognitive Function Orientation: Person, Place Memory: Intact Attention: Poor (some improvement) Concentration: Poor (some improvement) Association: Loose (some improvement) Fund of Knowledge: Poor - Mood Mood: Depressed ("I feel better"), Anxious - Affect Affect: Constricted (guarded, preoccupied and paranoid), Other (anxious) - Formal Thought Process Formal Thought Process: Hallucinations, Delusions, Paranoia, Loosening of associations, Circumstantial - Suicidal Ideation Suicidal Ideation: No - Homicidal Ideation Homicidal Ideation: No Goal/Treatment Plan - Goal/Treatment Plan Need for Continued Stay: Remain at risks for inpatient hospitalization, Severe depression anxiety, Discharge may exacerbated symptoms, Failed transitioning, Severe functional impairment Progress Toward Problem(s) and Goals/Treatment Plan: Milieu/structure/supportive therapy Medical consult appreciated, see medical team note for more detailed info SW consultation for discharge plan and social issues Med management seroquel increased to 300 mg at the morning time at the nighttime for psychosis and mood stabilization lamictal continued sonata as needed for insomnia klonopin for anxiety Lexapro discontinued as per pt's request pharmacy was contacted, meds confirmed family involvement Follow up on labs Will monitor closely Pt was educated about risk/benefits and alternatives of medications, coping strategies (safety plan, suicide prevention), relapse prevention, importance of follow up with psychiatrist and therapist, stay away from drugs/alcohol/smoking family meeting requested Estimated Date of D/C: 07/15/17
--- NOTE | 2017-07-13 13:40 | PN ---
DATE: SUBJECTIVE: The patient is currently seen sitting in the day room. She appears to be in no acute distress. MEDICATIONS: Medication list reviewed. The patient is currently on Advair discus, Aldactone, Antivert, Aromasin, clonidine, Claritin, DuoNeb, Ecotrin, Klonopin, K tabs, Lamictal, p.o. Lasix, Lexapro, Lipitor, Lopressor, Maalox, milk of magnesia, Norvasc, Seroquel, Singulair, Sonata, Tylenol and albuterol. PHYSICAL EXAMINATION VITAL SIGNS: Blood pressure 135/62, pulse 60 with a temperature of 97.8, the respiratory rate of 18. HEENT: Shows her be normocephalic, atraumatic. Conjunctivae are pink. Sclerae nonicteric. NECK: Supple. No neck vein distention. CHEST: Clear to auscultation and percussion. No rales, rhonchi or wheezing. CARDIOVASCULAR: Shows a regular rate and rhythm without murmurs, rubs or gallops. ABDOMEN: Mildly obese. Bowel sounds normal. No rebound, guarding or masses. EXTREMITIES: Show no lower extremity cyanosis, clubbing or edema. LABORATORY DATA AND IMAGING: CBC: White blood cell count from 07/12 was 8.8 with a hemoglobin 12.8, platelet count is 211,000. Chemistries from yesterday showed a BUN of 27 with a creatinine of 1.4. Her baseline creatinine is in the 1 range. Potassium is now 3.6. Magnesium level is 2. Renin level was 4.33, normal. Aldosterone level was 9 and normal. Calcium is mildly elevated at 10.6 with a PTH of 80, likely consistent with very mild primary hyperparathyroidism. Microbiology: All cultures are negative. Urine cultures are negative. ASSESSMENT: 1. History of congestive heart failure. The patient appears to be well compensated. The patient will continue on diuretic therapy. 2. Chronic kidney disease stage II suspect. 3. Slight increase in BUN and creatinine likely secondary to the use of diuretics. 4. Status post hypokalemia. Potassium level is now normal. The patient will continue combination therapy with Lasix, Aldactone and potassium supplements. 5. History of bipolar disorder. The patient is currently off lithium. 6. Hyperlipidemia. The patient will continue diet and statin therapy. 7. History of hypertension. The patient will continue calcium channel deborah therapy along with low-dose diuretic therapy and p.r.n. clonidine. PLAN: 1. Continue protocol in the Psychiatry Unit. 2. Agree with discontinuation of lithium. 3. Continue combination of Aldactone, Lasix and potassium with monitoring of her electrolytes. 4. The patient reassured that her urine cultures were negative. Ermias Jackson MD
[2017-07-13] MEDS: QUEtiapine 300 mg XR Tab PO SCH (17:47)
[2017-07-13] MEDS: POLYETHYLENE GLYCOL 3350 17 GM/Dose PACKET PO SCH (20:08)
--- NOTE | 2017-07-14 02:28 | PN ---
DATE: 07/13/2017 PULMONARY PROGRESS NOTE REFERRING PHYSICIAN: Rosette Miguel MD. SUBJECTIVE: She is sitting in her bed, night was unremarkable, doing well on therapy, slept well, breathing is better. Decreased cough. No nausea. No vomiting, diarrhea, leg pain, leg swelling. OBJECTIVE: GENERAL: In no acute distress. VITAL SIGNS: Temp is 98, heart rate is 59, respiratory rate is 20, blood pressure 131/67. HEENT: Moist mucous membrane. Crowded airway. NECK: Supple. No JVD. LUNGS: Have a fair airflow with rhonchi. HEART: S1 and S2. ABDOMEN: Soft, nontender. No organomegaly. EXTREMITIES: No edema. NEUROLOGICAL: Awake and alert. Follows simple command. LABORATORY DATA: Reviewed. No new lab is available since yesterday. MEDICATIONS: She is on Advair 250/50 one puff twice a day, Aldactone 50 mg twice a day, Antivert 12.5 mg three times a day, Aromasin 25 mg daily, Catapres 0.1 mg every 6 hours p.r.n., Claritin 10 mg daily, DuoNeb every 6 hours p.r.n., Ecotrin 81 mg daily, clonazepam 0.5 mg three times a day p.r.n., potassium 10 mEq daily, Lamictal 100 mg twice a day, Lasix 40 mg daily, Lipitor 20 mg daily, metoprolol tartarate 50 mg twice a day, milk of magnesia 30 mL p.o. daily p.r.n., MiraLax 17 g twice a day, Norvasc 10 mg daily, Seroquel XR 300 mg daily, Seroquel XR 300 mg in the afternoon, Singulair 10 mg daily, Sonata 5 mg at bedtime p.r.n., Tylenol p.r.n., Ventolin HFA two puffs every 4 hours p.r.n. IMPRESSION AND PLAN: Chronic obstructive lung disease; obstructive sleep apnea syndrome, noncompliant with the continuous positive airway pressure and bilevel positive airway pressure; bipolar disorder; depression; diabetes; hypertension; coronary artery disease. Pulmonary point of view, doing okay. Sleep apnea precaution. Avoid sedation. Careful with sedation. Continue inhaled bronchodilator. Fall precaution. Continue therapy. May need sleep study upon discharge as outpatient to requalify her for continuous positive airway pressure. Thank you and we will follow with you. Ponce Daniel MD
[2017-07-14 07:13] VITALS: RESP 20
[2017-07-14 07:41] LABS: HEMOGLOBIN 12.6 g/dL (12.0-16.0); MEAN CELL VOLUME 92.2 fl (80.0-105.0); MEAN CORPUSCULAR HEMOGLOBIN 29.7 pg (25.0-35.0); MEAN CORPUSCULAR HGB CONC 32.2 g/dl (31.0-37.0); MEAN PLATELET VOLUME 10.2 fl (7.0-11.0); RBC 4.24 10^6/uL (3.5-6.1); WHITE BLOOD COUNT 9.3 10^3/ul (4.5-11.0)
[2017-07-14 08:15] LABS: ALB/GLOB RATIO 1.8 (1.1-1.8); ALBUMIN 4.7 g/dL (3.0-4.8)
[2017-07-14] MEDS: POLYETHYLENE GLYCOL 3350 17 GM/Dose PACKET PO SCH ×2 (09:03→18:22)
[2017-07-14] MEDS: Potassium Chloride 10 mEq ER Tab PO SCH (09:03)
[2017-07-14] MEDS: QUEtiapine 150 mg XR Tab PO SCH (09:05)
[2017-07-14] MEDS: Fluticasone-Salmeterol 250-50mcg Diskus IH SCH ×2 (10:32→17:34)
--- NOTE | 2017-07-14 12:31 | PN ---
DATE: SUBJECTIVE: The patient was seen in the psych floor on 07/12/2017. She is comfortable, no distress. No new complaint. Seems doing very well. No chest pain. Not short of breath. Doing well. PHYSICAL EXAMINATION: On the date is as follows. VITAL SIGNS: Temperature 98.1, heart rate 55, blood pressure 143/66, respirations 18. GENERAL: She seems very comfortable. HEAD AND NECK: Normal. No JVD. No thyromegaly. CHEST: Clear. Good air entry. CARDIAC: First sound and second sound normal. ABDOMEN: Soft, nontender. EXTREMITIES: No edema. NEUROLOGIC: Normal. IMPRESSION AND PLAN: 1. Bipolar disorder. Continue psychiatric therapy. 2. Chronic obstructive pulmonary disease, chronic. Continue nebulizer treatment. 3. Acute renal insufficiency. We will monitor INR. She is getting Lasix. We will monitor that. 4. History of ischemic cardiomyopathy. Ejection fraction in the 30s. Continue Lasix. Continue all other medication. 5. Obstructive sleep apnea, chronic obstructive pulmonary disease. We will follow up with Dr. Daniel. At this time, repeat lab in the morning. Continue current therapy. Ari Osorio MD
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
[2017-07-14] MEDS ORDERED: Bisacodyl 5mg EC Tab PO ONE (16:07)
[2017-07-14] MEDS: QUEtiapine 200 mg XR Tab PO SCH (17:31)
--- NOTE | 2017-07-14 20:48 | PN ---
DATE: 07/13/2017 SUBJECTIVE: The patient is stable, comfortable, no distress, sitting, having breakfast. She does not like the food, but otherwise, seems stable. The patient has also noted laboratory study, some hypercalcemia and high creatinine. Otherwise, clinically stable. PHYSICAL EXAMINATION: VITAL SIGNS: As follows, her temperature is 97, heart rate 60, blood pressure 135/62, respiration 18, sat 97%. HEAD AND NECK: Normal. No JVD. No thyromegaly. CHEST: Clear. Good air entry. CARDIAC: First sound and second sound normal. ABDOMEN: Soft, obese, nontender. EXTREMITIES: No edema. NEUROLOGIC: Normal. LABORATORY DATA: Noted for sodium 144, potassium 3.6, chloride 101, bicarbonate 32, BUN 27, creatinine 1.4. The patient also has a calcium of 10.6 and PTH level was 80. IMPRESSION AND PLAN: 1. The patient has chronic bipolar psychiatric disorder with depression symptoms. She seems stable, better than before. She feels better, will follow up with Dr. Dinero. According to her, the patient also could have some sort of schizoaffective disorder, history of suicidal attempts. She lives alone in the senior citizen. We will continue psychiatric treatment and condition seems stable, better. 2. Chronic obstructive pulmonary disease, obstructive sleep apnea. Continue current therapy. 3. Hypercalcemia, primary hyperparathyroidism. 4. Chronic renal insufficiency, probably prerenal due to diabetes. Repeat lab in the morning. 5. Hypertension, coronary artery disease, ischemic cardiomyopathy, morbid obesity. Electrolyte abnormality seems better. Hypercholesterolemia, chronic anxiety, continue current therapy. Follow up clinically and we will continue current therapy. She also is getting Aromasin. She does have history of breast cancer and she has been stable on Aromasin. Continue aspirin, continue Lipitor, Lopressor, Norvasc, Seroquel, Tylenol, Ventolin inhaler, nebulizers, Aromasin, Antivert, Aldactone, Advair nebulizer treatment and Lamictal, she is getting 100 mg b.i.d. for mood stabilization, plus Lasix 40 mg daily. Continue current therapy. The patient seems doing well, moving around. Ari Osorio MD
[2017-07-14] MEDS: Albuterol HFA 90 mcg/actuation (8 g) IH PRN (23:14)
[2017-07-15] MEDS: Fluticasone-Salmeterol 250-50mcg Diskus IH SCH ×2 (05:15→18:58)
[2017-07-15 08:14] LABS: ALB/GLOB RATIO 1.9 (1.1-1.8); ALBUMIN 4.8 g/dL (3.0-4.8); CALCIUM 10.1 mg/dL (8.4-10.5); URIC ACID 10.7 mg/dL (2.5-6.2)
[2017-07-15] MEDS: Albuterol HFA 90 mcg/actuation (8 g) IH PRN (08:22)
[2017-07-15] MEDS: POLYETHYLENE GLYCOL 3350 17 GM/Dose PACKET PO SCH (08:56)
--- NOTE | 2017-07-15 08:57 | PN ---
DBATE: 07/14/2017 PULMONARY PROGRESS NOTE REFERRING PHYSICIAN: Rosette Miguel MD. SUBJECTIVE: The patient is ambulating in the hallway. Overall, feels better. Breathing is better. No cough. No sputum production. No nausea. No vomiting. No diarrhea. Has some pain in the foot. OBJECTIVE: GENERAL: In no acute distress. VITAL SIGNS: Temp is 98, heart rate is 58, respiratory rate is 20, blood pressure 107/54. HEENT: Moist mucous membrane. Crowded airway. NECK: Supple. No JVD. LUNGS: Have a fair airflow with rhonchi. HEART: S1 and S2. ABDOMEN: Soft and nontender. No organomegaly. EXTREMITIES: No edema. NEUROLOGICAL: Awake and alert. Follows simple command. LABORATORY DATA: Shows hemoglobin of 12.6, hematocrit 39.1, WBC 9.3, platelet is 235. Sodium 143, potassium 4.3, chloride 102, bicarbonate 27, BUN 22, creatinine 1.2, glucose 116, calcium 10, phosphorus 3.1, AST 28, ALT 44, alk phos is 83, albumin is 4.7. MEDICATIONS: She is on Advair 250/50 one puff twice a day, Aldactone 50 mg twice a day, Antivert 12.5 mg three times a day, Aromasin 25 mg daily, clonidine 0.1 mg every 6 hours p.r.n., Claritin 10 mg daily, DuoNeb every 6 hours p.r.n., Ecotrin 81 mg daily, clonazepam 0.5 mg three times a day p.r.n., Lamictal 100 mg twice a day, Lasix 40 mg daily, Lipitor 20 mg daily, metoprolol tartrate 50 mg twice a day, [place] p.r.n. basis, MiraLax 17 g twice a day, Norvasc 10 mg daily, Seroquel 300 mg in the morning and 400 mg in the afternoon, Singular 10 mg daily, Sonata 5 mg at bedtime p.r.n., Tylenol p.r.n., Ventolin HFA every 4 hours p.r.n. IMPRESSION AND PLAN: Chronic obstructive lung disease, obstructive sleep apnea syndrome, noncompliant with continuous positive airway pressure/bilevel positive airway pressure, bipolar disorder, depression, diabetes, hypertension, coronary artery disease. Pulmonary point of view, she is doing okay. Recommended to walk around with the shoes on instead of just soaks. May be she has an arch in the foot and getting strain to the foot. Continue p.o. and inhaled bronchodilator. Continue therapy. Fall precautions. Thank you and we will follow with you. Ponce Daniel MD
[2017-07-15] MEDS: QUEtiapine 150 mg XR Tab PO SCH (08:59)
--- NOTE | 2017-07-15 09:02 | PN ---
DATE: 07/14/2017 SUBJECTIVE: The patient is seen sitting in bed. She is awake. She is alert. She is comfortable. She denies any pain. She denies any shortness of breath. PHYSICAL EXAMINATION: GENERAL: Obese middle-aged lady, sitting in bed. VITAL SIGNS: Blood pressure 107/54, heart rate 58, respiratory rate 20, temperature 97.9. HEENT: Normocephalic, atraumatic. NECK: Supple, no JVD. LUNGS: Bilateral rhonchi, no rales. EXTREMITIES: No lower extremity edema. INTAKE AND OUTPUT: Not charted. LABORATORY DATA: Hemoglobin 12.6. Sodium 143, potassium 4.3, chloride 102, CO2 of 25, BUN 22, creatinine 1.2, glucose 116, calcium 10, phosphorus 3.1, magnesium 2.2, albumin 4.7. PTH 80. CURRENT MEDICATIONS: Aldactone 50 b.i.d., Antivert, Aromasin, Catapres, Claritin, DuoNeb, aspirin, Klonopin, potassium 10 mEq daily, Lamictal, Lasix, Lipitor, Lopressor, milk of magnesia, MiraLax, amlodipine. Geovanna Biswas MD
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
--- NOTE | 2017-07-15 15:33 | PN ---
DATE: 07/14/2017 SUBJECTIVE: The patient seems doing well. She has no new complaints except her big toe pain noted when I saw her. Complained of her big toe pain for the last few hours. She also complained of constipation; seems medication not working. The patient, otherwise, stable. No nausea, no vomiting. Eating good, breathing good, no complaint. PHYSICAL EXAMINATION: VITAL SIGNS: On the 25th, temperature 98, heart rate is 58, blood pressure 126/69, respirations 20. HEAD AND NECK: Normal. No JVD. No thyromegaly. CHEST: Clear. CARDIAC: First sound and second sound normal. ABDOMEN: Soft, obese, nontender. EXTREMITIES: No edema. NEUROLOGIC: Normal. LABORATORY DATA: Laboratory has been ordered for also tomorrow, but current labs shows white count 9.3, hemoglobin 12.6, hematocrit 39.1, platelets 235. Chemistry is noted for sodium 143, potassium 4.3, chloride 102, bicarb 27, BUN 22, creatinine 1.2 and blood sugar is 116. Liver function tests normal. Calcium is 10 and her aldosterone is 9, which is normal. Aldosterone-renin ratio 2.1, which is normal and her renin is 4.3, which is within normal range. IMPRESSION AND PLAN: 1. Primary hypertension, continue current therapy, stable. 2. Ischemic cardiomyopathy, the patient has history of coronary artery disease, she does have low ejection fraction, seems doing okay with Lasix; however, high creatinine may be . We will decrease Lasix twice a week to 20 mg in addition to may be, we will decrease Aldactone to 25 b.i.d. twice a week. We will discuss with her computer architect to see what is his recommendations about that. 3. Prerenal failure, prerenal insufficiency, probably it is cardiac or diuresis related, we will discuss with them. Continue current therapy. 4. Chronic obstructive pulmonary disease, hypertension, morbid obesity, obstructive sleep apnea. She does not want any mask, but has been seen by manager hardware. 5. Bipolar disorder, seems stable on Seroquel 300 mg p.o. daily and 400 mg , seems doing well with that. Continue also her Lamictal 100 mg daily. Has been doing well on current medication and clonazepam 0.5 t.i.d., seems doing well on that. I see the patient was on lithium, but not anymore as per the psychiatrist recommendations. She does seem clinically stable mentally and we will follow up with the psychiatrist about the current medications. 6. Coronary artery disease, hypercholesterolemia. Continue Lipitor, Lopressor, Lasix, aspirin. 7. History of breast cancer, stable on Aromasin, seen Dr. Barnett as outpatient. Continue current therapy, follow up clinically. Ari Osorio MD
[2017-07-15] MEDS: QUEtiapine 200 mg XR Tab PO SCH (18:22)
--- NOTE | 2017-07-16 02:13 | PN ---
DATE: 07/15/2017 PULMONARY PROGRESS NOTE REFERRING PHYSICIAN: Dr. Dinero. SUBJECTIVE: She is sitting in the chair. Night was unremarkable. Feels better. Use her inhaler this morning. No nausea, no vomiting, no diarrhea. No leg pain or leg swelling. OBJECTIVE: GENERAL: In no acute distress. VITAL SIGNS: Temperature is 98, heart rate is 68, respiratory rate is 20, blood pressure 128/66. HEENT: Moist mucous membranes. Crowded airway. Mallampati score is 4. NECK: Supple. No JVD. LUNGS: Have fair airflow with rhonchi. HEART: S1 and S2. ABDOMEN: Soft, nontender. No organomegaly. EXTREMITIES: There is no edema. NEUROLOGIC: Awake and alert, follows simple command. MEDICATIONS: She is on Advair 250/50 one puff twice a day, Aldactone 50 mg twice a day, Antivert 12.5 mg three times a day, Aromasin 25 mg daily, Catapres 0.1 mg every 6 hours p.r.n., Claritin 10 mg daily, DuoNeb every 6 hours, Ecotrin 81 mg daily, clonidine 0.5 mg three times a day, Lamictal 100 mg twice a day, Lasix 40 mg daily, Lipitor 20 mg daily, metoprolol tartrate 50 mg twice a day, Maalox p.r.n. basis, MiraLax 17 gm twice a day, Norvasc 10 mg daily, Seroquel XR 300 mg in the morning and 400 mg in the afternoon, Singulair 10 mg daily, Ambien 5 mg h.s. p.r.n., Tylenol p.r.n., and Ventolin HFA two puffs every 6 hours p.r.n. LABORATORY DATA: Shows sodium 140, potassium 4.0, chloride 101, bicarbonate 27, BUN 28, creatinine 1.4, glucose is 112, calcium is 10.1, AST 26, ALT 39, alk phos is 74. Albumin is 4.8. IMPRESSION AND PLAN: Chronic obstructive lung disease; obstructive sleep apnea syndrome, noncompliant with CPAP; bipolar disorder; depression; diabetes; hypertension; coronary artery disease. Continue p.o. and inhaled bronchodilator, sleep apnea precaution. Careful with sedation. Fall precaution. Continue therapy. Thank you and we will follow with you. Ponce Daniel MD [facility] # [id number]
[2017-07-16 06:50] VITALS: BP 145/68; PULSE 66; TEMP 98.1
[2017-07-16] MEDS: Fluticasone-Salmeterol 250-50mcg Diskus IH SCH (06:54)
[2017-07-16 08:14] LABS: ALBUMIN 4.5 g/dL (3.0-4.8); CALCIUM 9.4 mg/dL (8.4-10.5)
[2017-07-16] MEDS: POLYETHYLENE GLYCOL 3350 17 GM/Dose PACKET PO SCH (08:22)
[2017-07-16] MEDS: QUEtiapine 150 mg XR Tab PO SCH (08:24)
--- NOTE | 2017-07-16 15:25 | PN ---
DATE: 07/15/2017 SUBJECTIVE: A 57-year-old female came in with bipolar disorder and depression exacerbations, suicidal thoughts. The patient seems stable. No complaint. Physically, she has any complaint. Her big toe pain disappeared. She did have a bowel movement, not big enough, but she will need Fleet Enema. Discussed with the patient. No respiratory distress. No chest pain. The patient seems sleepy. She did not sleep good last night. PHYSICAL EXAMINATION: VITAL SIGNS: Temperature is 98.1, heart rate 58, blood pressure 130/72, respirations 20, saturating 96% on room air. HEAD AND NECK: Normal. No JVD. No thyromegaly. CHEST: Clear bilaterally. CARDIAC: First sound and second sound normal. ABDOMEN: Obese, soft, and nontender. EXTREMITIES: No edema. NEUROLOGIC: Normal. MEDICATIONS: The patient's medications in the hospital are Advair 50 per 250 one twice a day, Aldactone 50 b.i.d., Antivert 12.5 t.i.d., exemestane or Aromasin 25 p.o. daily, Catapres 0.1 every 6 hours p.r.n.Catapres 0.1 every 6 hours p.r.n. for systolic above 170, Claritin 10 once a day, DuoNeb, 81, Klonopin 0.5 t.i.d. p.r.n., Lamictal 100 b.i.d., Lasix 40 p.o. daily, Lipitor 20 p.o. at bedtime, Lopressor 50 b.i.d. The patient takes Maalox, milk of magnesia, and MiraLax for constipation. She also takes Norvasc 10 mg p.o. daily, Seroquel 300 mg p.o. daily and 400 mg p.o. in the evening, Singulair 10, Sonata or zaleplon 5 mg daily, Tylenol p.r.n., and albuterol 2 puffs inhalation every 6 hours p.r.n. LABORATORY DATA: On 07/15/2017 shows sodium 140, potassium 4, chloride 101, bicarb 27, BUN 28, creatinine 1.4, blood sugar 112. Uric acid 10.7, which is elevated. Her liver function test is normal. IMPRESSION: 1. Acute gouty arthritis, right big toe. The patient receives Toradol, seems doing well. We will consider putting the patient on colchicine and also put her on allopurinol. 2. Acute renal insufficiency should be improving. Encourage p.o. intake and we will follow up clinically. Repeat lab in the morning. 3. Hypertension, chronic obstructive pulmonary disease, coronary artery disease, peripheral vascular disease, bipolar disorder, depression, morbid obesity, obstructive sleep apnea, mild anemia, chronic anxiety, hypercholesterolemia, chronic constipation, and history of breast cancer. PLAN: Continue current therapy. Continue Seroquel plus Klonopin and mood stabilizer, Lamictal. Continue current therapy. Follow up clinically. Ari Osorio MD
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
== END 2017-07-16 13:46 | disposition home or self-care (01) | DRG 885 ==
LOC: ED 14:42 → ERH 19:27 → PSYC 21:58
PROVIDERS: ADMIT Psychiatry & Neurology Psychiatry; ATTEND Psychiatry & Neurology Psychiatry
DX: F25.9 Schizoaffective disorder, unspecified (principal); N39.0 Urinary tract infection, site not specified; I13.0 Hypertensive heart and chronic kidney disease with heart failure and stage 1 through stage 4 chronic kidney disease, or unspecified chronic kidney disease; E87.3 Alkalosis; N17.9 Acute kidney failure, unspecified; Z68.41 Body mass index [BMI] 40.0-44.9, adult; I50.9 Heart failure, unspecified; N18.2 Chronic kidney disease, stage 2 (mild); J44.9 Chronic obstructive pulmonary disease, unspecified; I25.10 Atherosclerotic heart disease of native coronary artery without angina pectoris; E87.6 Hypokalemia; G47.33 Obstructive sleep apnea (adult) (pediatric); E66.01 Morbid (severe) obesity due to excess calories; E11.65 Type 2 diabetes mellitus with hyperglycemia; E11.51 Type 2 diabetes mellitus with diabetic peripheral angiopathy without gangrene; E21.0 Primary hyperparathyroidism; E11.22 Type 2 diabetes mellitus with diabetic chronic kidney disease; F41.9 Anxiety disorder, unspecified; F31.9 Bipolar disorder, unspecified; I25.5 Ischemic cardiomyopathy; E78.00 Pure hypercholesterolemia, unspecified; J32.9 Chronic sinusitis, unspecified; M10.071 Idiopathic gout, right ankle and foot; K59.09 Other constipation; D64.9 Anemia, unspecified; Z79.82 Long term (current) use of aspirin; Z85.3 Personal history of malignant neoplasm of breast; Z79.811 Long term (current) use of aromatase inhibitors; Z95.1 Presence of aortocoronary bypass graft; Z91.14 Patient's other noncompliance with medication regimen

== ENCOUNTER 2017-09-21 00:28 | Observation (INO) | payer MEDICARE, OTHER ==
[2017-09-21 00:29] VITALS: PULSE 80
[2017-09-21 00:44] VITALS: BMI 42.9
--- NOTE | 2017-09-21 01:32 | ED PDOC ---
Arrival/HPI - General Chief Complaint: Anxiety Time Seen by Provider: 09/21/17 01:09 Historian: Patient - History of Present Illness Narrative History of Present Illness (Text): 09/21/17 01:32 Jammie Courtney is a 57 year old female, whose past medical history includes CAD , quadruple bypass, COPD, hypertension, breast cancer s/p lumpectomy, and bipolar disorder, who presents to the Emergency department complaining of chest pain. Patient states had been experiencing exertional chest tightness and exertional shortness of breath yesterday. Patient states symptoms are not consistent with her anxiety attacks. Patient denies any fever, chills, nausea, vomiting, diarrhea, urinary symptoms, back pain, neck pain, headache, dizziness , or any other complaints. PMD: Dr. Osorio Symptom Onset: Gradual Symptom Course: Unchanged Activities at Onset: Light Context: Home Past Medical History - Provider Review Nursing Documentation Reviewed: Yes - Infectious Disease Hx of Infectious Diseases: None - Tetanus Immunization Tetanus Immunization: Unknown - Reproductive Menopause: Yes - Past Medical History Past Medical History: No Previous - Cardiac Hx Cardiac Disorders: Yes (CAD, CABG x 4) Hx Congestive Heart Failure: Yes Hx Hypertension: Yes - Pulmonary Hx Respiratory Disorders: Yes Hx Chronic Obstructive Pulmonary Disease (COPD): Yes - Neurological Hx Neurological Disorder: Yes Hx Seizures: Yes Other/Comment: left foot numbness and "sometimes" swells since having quadruple bypass sx - HEENT Hx HEENT Disorder: Yes (sinusitis) Other/Comment: pt denies vocal cord mass - Renal Hx Renal Disorder: No - Endocrine/Metabolic Hx Endocrine Disorders: No - Hematological/Oncological Hx Blood Disorders: Yes Hx Cancer: Yes (left lumpectomy dx 3 yrs ago) Other/Comment: pt had radiation for left breast ca. Recent discharge with blood from left breast. - Integumentary Hx Dermatological Disorder: No Other/Comment: left breast swollen painful slight redness - Musculoskeletal/Rheumatological Hx Musculoskeletal Disorders: No - Gastrointestinal Hx Gastrointestinal Disorders: Yes (hemorrhoids, obese) Hx Constipation: Yes - Genitourinary/Gynecological Hx Genitourinary Disorders: No - Psychiatric Hx Psychophysiologic Disorder: Yes Hx Anxiety: Yes Hx Bipolar Disorder: Yes Hx Depression: Yes Hx Substance Use: No - Past Surgical History Past Surgical History: No Previous - Surgical History Hx Breast Biopsy: Yes (left) Hx Coronary Artery Bypass Graft: Yes - Anesthesia Hx Anesthesia: Yes Hx Anesthesia Reactions: No Hx Malignant Hyperthermia: No - Suicidal Assessment Feels Threatened In Home Enviroment: No Family/Social History - Physician Review Nursing Documentation Reviewed: Yes Family/Social History: Unknown Family HX Smoking Status: Former Smoker Hx Alcohol Use: No Hx Substance Use: No Hx Substance Use Treatment: No Allergies/Home Meds Allergies/Adverse Reactions: Allergies No Known Allergies Allergy (Verified 09/21/17 00:54) Review of Systems - Physician Review All systems were reviewed & negative as marked: Yes - Review of Systems Constitutional: Normal. absent: Fevers Eyes: Normal ENT: Normal Respiratory: SOB Cardiovascular: Chest Pain, PETTY Gastrointestinal: Normal. absent: Abdominal Pain, Diarrhea, Nausea, Vomiting Genitourinary Female: Normal. absent: Dysuria, Frequency, Hematuria, Urine Output Changes Musculoskeletal: Normal. absent: Back Pain, Neck Pain Skin: Normal. absent: Rash Neurological: Normal. absent: Headache, Dizziness Endocrine: Normal Hemo/Lymphatic: Normal Psychiatric: Normal Physical Exam Vital Signs Reviewed: Yes Vital Signs Temp Pulse Resp BP Pulse Ox 09/21/17 03:54 98 F 63 18 122/70 100 09/21/17 02:42 98 F 64 18 125/68 100 09/21/17 00:43 98.4 F 70 19 120/73 96 Temperature: Afebrile Blood Pressure: Normal Pulse: Regular Respiratory Rate: Normal Appearance: Positive for: Well-Appearing, Non-Toxic, Comfortable Pain Distress: None Mental Status: Positive for: Alert and Oriented X 3 - Systems Exam Head: Present: Atraumatic, Normocephalic Pupils: Present: PERRL Extroacular Muscles: Present: EOMI Conjunctiva: Present: Normal Mouth: Present: Moist Mucous Membranes Neck: Present: Normal Range of Motion Respiratory/Chest: Present: Clear to Auscultation, Good Air Exchange. No: Respiratory Distress, Accessory Muscle Use Cardiovascular: Present: Regular Rate and Rhythm, Normal S1, S2. No: Murmurs Abdomen: No: Tenderness, Distention, Peritoneal Signs Back: Present: Normal Inspection Upper Extremity: Present: Normal Inspection. No: Cyanosis, Edema Lower Extremity: Present: Normal Inspection. No: Edema Neurological: Present: GCS=15, CN II-XII Intact, Speech Normal Skin: Present: Warm, Dry, Normal Color. No: Rashes Psychiatric: Present: Alert, Oriented x 3, Normal Insight, Normal Concentration Medical Decision Making ED Course and Treatment: 09/21/17 01:32 Impression: 57 year old female complaining of exertional chest pain and exertional shortness of breath. Plan: -- EKG -- Chest X-ray -- Labs, cardiac enzymes, BNP -- Reassess and disposition Prior Visits: Notes and results from previous visits were reviewed. On 07/07/2017, pt was seen in the Emergency department for depression. Pt was admitted to the hospital for further psychiatric evaluation. Progress Notes: Reviewed EKG, NSR at 69 bpm. 1st degree AV block. Septal infarct. Non-specific T wave changes. 09/21/17 03:[address] Osorio, who is aware and agrees with plan. Accepts pt in to his service. Pt will go to Telemetry observation for chest pain. Requests Dr. Sawyer on consult. 09/21/17 03:15 Chest X-ray reviewed, shows no acute processes. - Lab Interpretations Lab Results: 09/21/17 02:17 09/21/17 02:17 Lab Results 09/21/17 02:17: WBC 7.0 D, RBC 3.88, Hgb 11.5 L, Hct 35.5 L, MCV 91.5, MCH 29.6 , MCHC 32.4, RDW 14.8 H, Plt Count 196, MPV 9.7 09/21/17 02:17: Sodium 143, Potassium 4.4, Chloride 108 H, Carbon Dioxide 25, Anion Gap 15, BUN 15, Creatinine 0.9, Est GFR ( Amer) > 60, Est GFR (Non- Af Amer) > 60, Random Glucose 109, Calcium 9.5, Total Bilirubin 0.6, AST 41 H D , ALT 41, Alkaline Phosphatase 60, Lactate Dehydrogenase 720 H, Total Creatine Kinase 144, Troponin I 0.02, NT-Pro-B Natriuret Pep 354, Total Protein 6.9, Albumin 4.3, Globulin 2.6, Albumin/Globulin Ratio 1.6 09/21/17 02:17: PT 10.9, INR 0.96, APTT 29.1 I have reviewed the lab results: Yes - RAD Interpretation Radiology Orders: 09/21/17 01:34 CHEST PORTABLE [RAD] Stat Back Strip Machine Operator: ED Physician - EKG Interpretation Interpreted by ED Physician: Yes Type: 12 lead EKG - Medication Orders Current Medication Orders: Discontinued Medications Aspirin (Aspirin) 325 mg PO ONCE STA Stop: 09/21/17 03:20 Last Admin: 09/21/17 03:43 Dose: 325 mg - Scribe Statement The provider has reviewed the documentation as recorded by the Aaron Huynh Provider Scribe Attestation: All medical record entries made by the Aaron were at my direction and personally dictated by me. I have reviewed the chart and agree that the record accurately reflects my personal performance of the history, physical exam, medical decision making, and the department course for this patient. I have also personally directed, reviewed, and agree with the discharge instructions and disposition. Disposition/Present on Arrival - Present on Arrival Any Indicators Present on Arrival: No History of DVT/PE: No History of Uncontrolled Diabetes: No Urinary Catheter: No History of Decub. Ulcer: No History Surgical Site Infection Following: None - Disposition Have Diagnosis and Disposition been Completed?: Yes Diagnosis: Chest pain Disposition: HOSPITALIZED Disposition Time: 03:18 Patient Problems: Current Active Problems Problem Status Onset Chest pain Acute Condition: STABLE
[2017-09-21 02:27] LABS: HEMOGLOBIN 11.5 g/dL (12.0-16.0); MEAN CELL VOLUME 91.5 fl (80.0-105.0); MEAN CORPUSCULAR HEMOGLOBIN 29.6 pg (25.0-35.0); MEAN CORPUSCULAR HGB CONC 32.4 g/dl (31.0-37.0); MEAN PLATELET VOLUME 9.7 fl (7.0-11.0); RBC 3.88 10^6/uL (3.5-6.1); RED CELL DISTRIBUTION WIDTH 14.8 % (11.5-14.5)
[2017-09-21 02:38] LABS: INR 0.96 (0.93-1.08); PARTIAL THROMBOPLASTIN TIME 29.1 Seconds (25.1-36.5); PROTHROMBIN TIME 10.9 SECONDS (9.4-12.5)
[2017-09-21 02:43] VITALS: O2SAT 100
[2017-09-21 02:52] LABS: ALB/GLOB RATIO 1.6 (1.1-1.8); ALBUMIN 4.3 g/dL (3.0-4.8); CALCIUM 9.5 mg/dL (8.4-10.5); GFR AFRICAN-AMERICAN > 60; GFR NON-AFRICAN AMERICAN > 60
[2017-09-21 02:54] LABS: ALT/SGPT 41 U/L (7-56); AST/SGOT 41 U/L (14-36); BLOOD UREA NITROGEN 15 mg/dL (7-21)
[2017-09-21 03:04] LABS: B-TYPE NATRIURETIC PEPTIDE 354 pg/mL (0-450); TROPONIN I 0.02 ng/mL
[2017-09-21] MEDS ORDERED: oxyCODONE 5 mg Immediate Release Tab PO PRN (07:41)
[2017-09-21] MEDS ORDERED: Bisacodyl 5mg EC Tab PO PRN (07:41)
[2017-09-21 08:04] LABS: HDL CHOLESTEROL 46 mg/dL (29-60)
--- NOTE | 2017-09-21 08:11 | RAD ---
HISTORY: sob COMPARISON: 07/07/2017 FINDINGS: LUNGS: No active pulmonary disease. PLEURA: No significant pleural effusion identified, no pneumothorax apparent. CARDIOVASCULAR: Mild cardiomegaly. Pulmonary vasculature probably top-normal. Midline sternotomy and coronary artery bypass clips OSSEOUS STRUCTURES: Midline thoracic spondylosis midline sternotomy VISUALIZED UPPER ABDOMEN: Normal. OTHER FINDINGS: None. IMPRESSION: No interval pathology noted
[2017-09-21 08:14] LABS: TROPONIN I < 0.01 ng/mL
[2017-09-21 08:15] LABS: LDL CHOLESTEROL 167 mg/dL (0-129)
[2017-09-21] MEDS ORDERED: Lithium Carbonate ER Tab 450 MG PO SCH (10:00)
[2017-09-21] MEDS ORDERED: Tiotropium 18 mcg Cap For Inhalation INH SCH (10:00)
[2017-09-21] MEDS ORDERED: Multivitamin Therapeutic Tab PO SCH (10:00)
[2017-09-21] MEDS ORDERED: QUEtiapine 300 mg XR Tab PO SCH (10:00)
--- NOTE | 2017-09-21 10:07 | CARD ---
APPROVED REPORT EKG Measurement Heart [id number] <Conclusion> Sinus rhythm with 1st degree AV block Nonspecific intraventricular block Cannot rule out Septal infarct, age undetermined T wave abnormality, consider inferolateral ischemia No change
--- NOTE | 2017-09-21 12:49 | CARD ---
APPROVED REPORT EXAM: Two-dimensional and M-mode echocardiogram with Doppler and color Doppler. INDICATION Chest Pain 2D DIMENSIONS Left Atrium (2D)5.3 (1.6-4.0cm)IVSd1.3 (0.7-1.1cm) LVDd6.5 (3.9-5.9cm)PWd1.4 (0.7-1.1cm) LVDs5.5 (2.5-4.0cm)FS (%) 16.4 % LVEF (%)33.9 (>50%) M-Mode DIMENSIONS Aortic Root3.10 (2.2-3.7cm)Aortic Cusp Exc.1.70 (1.5-2.0cm) Aortic Valve AoV Peak Opmgvudi942.0cm/Sarahi Peak GR.9mmHg Mitral Valve MV E Injdjmzg90.7cm/sMV A Fwvtflkc21.2cm/sE/A ratio1.5 TDI Lateral E' Peak V8.48cm/sMedial E' Peak V4.29cm/sE/Lateral E'11.8 E/Medial E'23.2 Pulmonary Valve PV Peak Vzlwvmhi20.6cm/sPV Peak Grad.2mmHg Tricuspid Valve TR Peak Bxijrqzo820rf/sRAP [id number] Peak Gr.11mmHg [id number] LEFT VENTRICLE The left ventricle is normal size. There is mild concentric left ventricular hypertrophy. The systolic function is moderately impaired.EF-30-35% There is moderate global hypokinesis of the left ventricle. There is moderate to severe hypokinesis in the mid-anteroseptal wall. Transmitral Doppler flow pattern is Grade II-pseudonormal filling dynamics. No left ventricle thrombus noted on this study. There is no ventricular septal defect visualized. There is no left ventricular aneurysm. There is no mass noted in the left ventricle. RIGHT VENTRICLE The right ventricle is normal size. There is normal right ventricular wall thickness. The right ventricular systolic function is normal. ATRIA The left atrium is severely dilated. The right atrium size is normal. The interatrial septum is intact with no evidence for an atrial septal defect. AORTIC VALVE The aortic valve is thickened but opens well. No aortic regurgitation is present. There is no aortic valvular stenosis. There is no aortic valvular vegetation. MITRAL VALVE The mitral valve is thickened but opens well. Mitral regurgitation is mild to moderate. There is no mitral valve stenosis. There is no evidence of mitral valve prolapse. TRICUSPID VALVE The tricuspid valve leaflets are thickened , but open well. There is trace to mild tricuspid regurgitation.RVSP-19 mmof hg. There is no tricuspid valve stenosis. There is no tricuspid valve prolapse or vegetation. PULMONIC VALVE The pulmonary valve is normal in structure. There is trace pulmonic valvular regurgitation. There is no pulmonic valvular stenosis. GREAT VESSELS The aortic root is normal in size. The ascending aorta is normal in size. The pulmonary artery is normal. The IVC is normal in size and collapses >50% with inspiration. PERICARDIAL EFFUSION There is no pleural effusion. There is no pericardial effusion. <Conclusion> The left ventricle is normal size. There is mild concentric left ventricular hypertrophy. The systolic function is moderately impaired.EF-30-35% There is moderate There is moderate to severe hypokinesis in the mid-anteroseptal wall. global hypokinesis of the left ventricle. There is moderate global hypokinesis of the left ventricle. There is moderate to severe hypokinesis in the mid-anteroseptal wall. Mitral regurgitation is mild to moderate. There is trace to mild tricuspid regurgitation.RVSP-19 mmof hg. The IVC is normal in size and collapses >50% with inspiration. There is no pericardial effusion.
[2017-09-21 12:57] VITALS: BP 125/66; PULSE 66; RESP 18; TEMP 98.9
--- NOTE | 2017-09-21 22:12 | CON ---
DATE: 09/21/2017 CARDIOLOGY CONSULTATION REASON FOR THE CONSULTATION: Followup cardiac evaluation, history of coronary artery disease, history of CABG, admitted with shortness of breath after a stressful situation at home. BRIEF CLINICAL HISTORY: This is a 57-year-old female, ex-smoker, history of coronary artery disease status post quadruple bypass, hypertension, hyperlipidemia, history of breast CA status post lumpectomy, bipolar disorder; came to the emergency room after having a stressful situation at home and the patient is short of breath. Denies any chest pain. Denies any palpitations. PAST MEDICAL HISTORY: Past history is significant for coronary artery disease; obesity; ex-alcohol abuse; ex-tobacco abuse; history of COPD; history of breast CA, status post lumpectomy; history of coronary artery disease, status post CABG in 2009. History of recent cardiac workup as follows: Last catheterization on 08/22/2012 shows [place] triple-vessel disease, left main 60% stenosis, bifurcated LAD and circumflex, LAD 100% occluded, circ 80% proximally occluded, distal 60% stenosis, RCA 100% occluded. Graft as follows: CONTE was not used, probably damaging harvesting an occluded graft. SVG to OM1 is patent. Graft connected to LAD patent. SVG to RCA patent. Ejection fraction of 45%. Subsequently, the patient had a stress test in 2014, ejection fraction 47%. Patient had a repeat stress test on 01/06/2016, with ejection fraction of 37. When compared from the 04/10/2009, there is deterioration in the LV function. There is no reversible ischemia noted. Patient had an echocardiography on 02/15/2016 that shows ejection fraction decreased, moderate to mild pulmonary hypertension, RV systolic pressure 36. Previous cardiac workup: Most recent echo on 02/14/[address] Guzman's office, decreased LV function. Most recent stress test on 01/05/2017, ejection fraction 37%. Most recent MUGA scan on 02/18/2016, ejection fraction of 35%. SOCIAL HISTORY: Denies any history of alcohol abuse. Currently quit smoking, before patient was an ex-smoker. CURRENT MEDICATIONS: Patient at home was taking inhaler device, Pepcid, bisacodyl, oxycodone, amlodipine, spironolactone, meclizine, furosemide, Lexapro, [place], Singulair, aspirin, Plavix, Zyrtec, Lamictal, Norvasc, aldosterone, Seroquel, metoprolol tartrate, loratadine, Lasix. REVIEW OF SYSTEMS: As per HPI. PHYSICAL EXAMINATION: VITAL SIGNS: Temperature afebrile, heart rate 61, blood pressure 134/80. HEENT: PERRLA, intact. NECK: Supple. No carotid bruit. No thyromegaly. CHEST: Clear to auscultation. HEART: S1 and S2 regular. ABDOMEN: Soft. EXTREMITIES: Clubbing and cyanosis negative. LABORATORY DATA: EKG shows normal sinus rhythm, rate of 61, poor RR progression, LVH. Blood workup as follows: WBC 7, hemoglobin , hematocrit 35.5, platelet count 196. Chemistry shows sodium 140, potassium 4, chloride 108, carbon dioxide 25, anion gap of 15, BUN 15, creatinine 0.9, troponin 0.01 x2 negative. LDL 167, triglyceride 306, cholesterol 262, HDL 46. TSH 3.94. IMPRESSION: Atypical chest pain, so far no evidence of acute myocardial infarction, troponin x2 negative; history of diabetes; hypertension; obesity; rule out obstructive sleep apnea; chronic obstructive pulmonary disease; history of coronary artery disease, status post coronary artery bypass graft. Admitted with a stressful situation at home. No evidence of acute myocardial infarction. RECOMMENATIONS: Aggressive medical treatment. Follow up echo to assess left ventricular function. We will discontinue telemetry. Increase atorvastatin to 40 mg daily because LDL is 167, noncompliant with medication. Emphasis made on complete compliance with the medication, complete cessation of smoking. Emphasized on weight reduction, modification of lifestyle, modification of risk factor for coronary artery disease. We will get echo to assess LV function. Thank you, Dr. Osorio, for providing us the opportunity in taking care of the patient, Jammie Courtney. Ponce Sawyer MD
--- NOTE | 2017-09-22 23:58 | CARD ---
APPROVED REPORT INDICATION chest pain PROCEDURE The above named patient recieved 30 millicuries of Tc99m tagged red blood cells intravenously. After achieving equilibrium, gated imaging of 16/frame/cycle was performed utillizing Gamma camera interfaced with a digital computer and gated device. Findings Left Ventricle: The quality of the study is good. The left ventricle is mildly enlarged. The right ventricle is normal in size. Wall motion study shows diffuse hypokinesis and paradoxical septal wall motion of the left ventricle. RV wall motion is normal. The right atrium is dynamic. The remainder of the study is unremarkable. Impressions Mild LV dysfunction with diffuse hypokinesis and paradoxical septal wall motion. LVEF = 45%. Normal RV wall motion. In comparison with the last study of 02/18/2016, there is improvement of LV contractility.
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
== END 2017-09-21 18:03 | disposition home or self-care (01) ==
LOC: ED 00:28 → ERH 03:14 → 2RNO 05:28
PROVIDERS: ADMIT Internal Medicine; ATTEND Internal Medicine
DX: R07.89 Other chest pain (principal); I11.0 Hypertensive heart disease with heart failure; I50.9 Heart failure, unspecified; J44.9 Chronic obstructive pulmonary disease, unspecified; I25.10 Atherosclerotic heart disease of native coronary artery without angina pectoris; F10.10 Alcohol abuse, uncomplicated; E66.9 Obesity, unspecified; E11.9 Type 2 diabetes mellitus without complications; E78.5 Hyperlipidemia, unspecified; F31.9 Bipolar disorder, unspecified; F41.9 Anxiety disorder, unspecified; I27.20 Pulmonary hypertension, unspecified; I25.82 Chronic total occlusion of coronary artery; Z87.891 Personal history of nicotine dependence; Z85.3 Personal history of malignant neoplasm of breast; Z95.1 Presence of aortocoronary bypass graft; Z91.14 Patient's other noncompliance with medication regimen; Z68.41 Body mass index [BMI] 40.0-44.9, adult
CPT/HCPCS: 71045; 78472; 80053; 80061; 82550; 83036; 83615; 83880; 84443; 84484; 85027; 85610; 85730; 93005; 93306; 99285; G0378

== ENCOUNTER 2017-09-22 23:43 | Emergency (ER) | payer MEDICARE, OTHER ==
[2017-09-22 23:43] VITALS: PULSE 80
[2017-09-22 23:53] VITALS: BMI 36.8
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
[2017-09-23 02:04] VITALS: RESP 18; TEMP 98.3
[2017-09-23 02:08] LABS: PH,URINE 6.5 (4.7-8.0); URINE BILIRUBIN NEGATIVE (NEGATIVE); URINE BLOOD TRACE-INTACT (NEGATIVE); URINE GLUCOSE (UA) NEGATIVE (NEGATIVE); URINE LEUKOCYTE ESTERASE SMALL Leu/uL (NEGATIVE); URINE PROTEIN NEGATIVE mg/dL (<30 mg/dL); URINE UROBILINOGEN 0.2 E.U./dL (<1 E.U./dL)
[2017-09-23 02:09] LABS: BASO # 0.04 K/mm3 (0.0-2.0); BASO % 0.5 % (0.0-3.0); EOS # 0.4 (0.0-0.7); EOS % 4.4 % (1.5-5.0); GRAN # 5.85 (1.4-6.5); GRAN % 65.8 % (50.0-68.0); HEMOGLOBIN 11.9 g/dL (12.0-16.0); LYMPH # 2.1 (1.2-3.4); LYMPH % 23.1 % (22.0-35.0); MEAN CELL VOLUME 90.9 fl (80.0-105.0); MEAN CORPUSCULAR HEMOGLOBIN 30.2 pg (25.0-35.0); MEAN CORPUSCULAR HGB CONC 33.2 g/dl (31.0-37.0); MEAN PLATELET VOLUME 9.7 fl (7.0-11.0); MONO # 0.6 (0.1-0.6); MONO % 6.2 % (1.0-6.0); RBC 3.94 10^6/uL (3.5-6.1); RED CELL DISTRIBUTION WIDTH 14.8 % (11.5-14.5); WHITE BLOOD COUNT 8.9 10^3/ul (4.5-11.0)
[2017-09-23 02:24] LABS: URINE APPEARANCE CLEAR (CLEAR); URINE COLOR YELLOW (YELLOW)
[2017-09-23 02:29] LABS: TROPONIN I < 0.01 ng/mL
[2017-09-23 02:34] LABS: ALB/GLOB RATIO 1.7 (1.1-1.8); ALBUMIN 4.5 g/dL (3.0-4.8); ALT/SGPT 39 U/L (7-56); AST/SGOT 31 U/L (14-36); BLOOD UREA NITROGEN 22 mg/dL (7-21); CALCIUM 9.9 mg/dL (8.4-10.5); GFR AFRICAN-AMERICAN 51; GFR NON-AFRICAN AMERICAN 42
[2017-09-23 02:35] LABS: URINE BACTERIA RARE (NEG); URINE EPITHELIAL CELLS 0 - 2 /hpf (0-5); URINE RBC 0 - 2 /hpf (0-2)
[2017-09-23 05:40] VITALS: BP 116/66; PULSE 74; O2SAT 100
--- NOTE | 2017-09-23 07:47 | RAD ---
HISTORY: cp COMPARISON: Portable chest FINDINGS: LUNGS: No active pulmonary disease. PLEURA: No significant pleural effusion identified, no pneumothorax apparent. CARDIOVASCULAR: Stable cardiomegaly. No pulmonary vascular congestion appears sternotomy reiterated. OSSEOUS STRUCTURES: No significant abnormalities. VISUALIZED UPPER ABDOMEN: Normal. OTHER FINDINGS: None. IMPRESSION: Stable cardiomegaly. No interval acute cardiopulmonary disease appreciable.
--- NOTE | 2017-09-23 13:03 | CARD ---
APPROVED REPORT EKG Measurement Heart [id number] <Conclusion> Sinus rhythm with 1st degree AV block Nonspecific intraventricular block Cannot rule out Septal infarct, age undetermined T wave abnormality, consider inferolateral ischemia
== END 2017-09-23 05:34 | disposition home or self-care (01) ==
LOC: ED 23:43
DX: F41.9 Anxiety disorder, unspecified (principal); I25.10 Atherosclerotic heart disease of native coronary artery without angina pectoris; I10 Essential (primary) hypertension; J44.9 Chronic obstructive pulmonary disease, unspecified; Z95.1 Presence of aortocoronary bypass graft; Z87.891 Personal history of nicotine dependence

== ENCOUNTER 2017-09-28 23:10 | Emergency (ER) | payer MEDICARE, OTHER ==
[2017-09-28 23:11] VITALS: PULSE 80; BMI 36.8
[2017-09-28 23:22] VITALS: TEMP 97.5
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
[2017-09-29 01:44] VITALS: BP 140/79; PULSE 68; RESP 17; O2SAT 100
== END 2017-09-29 01:10 | disposition home or self-care (01) ==
LOC: ED 23:10
DX: M79.605 Pain in left leg (principal); I25.10 Atherosclerotic heart disease of native coronary artery without angina pectoris; I50.9 Heart failure, unspecified; I10 Essential (primary) hypertension; Z87.891 Personal history of nicotine dependence

== ENCOUNTER 2017-10-25 22:57 | Observation (INO) | payer MEDICARE, OTHER ==
[2017-10-25 22:58] VITALS: PULSE 80; BMI 36.8
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
[2017-10-26] MEDS ORDERED: Morphine 2 mg/ml ISec IVP STA (00:17)
[2017-10-26 00:19] LABS: HEMOGLOBIN 13.1 g/dL (12.0-16.0); MEAN CORPUSCULAR HEMOGLOBIN 29.9 pg (25.0-35.0); MEAN CORPUSCULAR HGB CONC 34.2 g/dl (31.0-37.0); MEAN PLATELET VOLUME 10.6 fl (7.0-11.0); RBC 4.38 10^6/uL (3.5-6.1); RED CELL DISTRIBUTION WIDTH 13.8 % (11.5-14.5); WHITE BLOOD COUNT 10.5 10^3/ul (4.5-11.0)
[2017-10-26 00:21] LABS: MEAN CELL VOLUME 87.4 fl (80.0-105.0)
[2017-10-26 00:25] LABS: PARTIAL THROMBOPLASTIN TIME 27.7 Seconds (25.1-36.5); PROTHROMBIN TIME 11.4 SECONDS (9.4-12.5)
[2017-10-26 00:44] LABS: ALB/GLOB RATIO 1.6 (1.1-1.8); CALCIUM 10.6 mg/dL (8.4-10.5)
[2017-10-26 00:49] LABS: TROPONIN I 0.02 ng/mL
[2017-10-26] MEDS ORDERED: Potassium Chloride 20 mEq 100 ML IV ONE (00:53)
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
[2017-10-26] MEDS: Potassium Chloride 20 mEq ER Tab PO SCH ×5 (07:23→22:13)
[2017-10-26] MEDS: Arformoterol 15 mcg/2 ml Inh Sol IH SCH ×2 (07:44→19:36)
[2017-10-26] MEDS: Budesonide 0.5 mg/2 ml Inhal Susp UD IH SCH ×2 (07:44→19:36)
[2017-10-26 08:05] LABS: BASO # 0.04 K/mm3 (0.0-2.0); BASO % 0.5 % (0.0-3.0); EOS # 0.3 (0.0-0.7); EOS % 3.5 % (1.5-5.0); GRAN # 5.18 (1.4-6.5); HEMOGLOBIN 12.6 g/dL (12.0-16.0); LYMPH # 1.9 (1.2-3.4); LYMPH % 23.6 % (22.0-35.0); MEAN CELL VOLUME 87.9 fl (80.0-105.0); MEAN CORPUSCULAR HEMOGLOBIN 29.3 pg (25.0-35.0); MEAN CORPUSCULAR HGB CONC 33.3 g/dl (31.0-37.0); MEAN PLATELET VOLUME 10.3 fl (7.0-11.0); MONO # 0.6 (0.1-0.6); MONO % 7.4 % (1.0-6.0); RBC 4.3 10^6/uL (3.5-6.1); RED CELL DISTRIBUTION WIDTH 13.9 % (11.5-14.5)
[2017-10-26 09:22] LABS: ALB/GLOB RATIO 1.8 (1.1-1.8); ALBUMIN 4.8 g/dL (3.0-4.8); ALT/SGPT 38 U/L (7-56); AST/SGOT 29 U/L (14-36); BLOOD UREA NITROGEN 45 mg/dL (7-21); CALCIUM 10.7 mg/dL (8.4-10.5); GFR AFRICAN-AMERICAN > 60; GFR NON-AFRICAN AMERICAN 51
[2017-10-26 09:32] LABS: B-TYPE NATRIURETIC PEPTIDE 115 pg/mL (0-450); TROPONIN I 0.02 ng/mL
--- NOTE | 2017-10-26 09:40 | US ---
PROCEDURE: Left upper extremity venous ultrasound HISTORY: Arm pain and swelling. Evaluate for deep venous thrombosis. PHYSICIAN(S): Cade Sanz MD. FINDINGS: The visualized leftinternal jugular vein is sonographically normal and compressible. No evidence of obstruction or thrombus is seen. The visualized segments of the left subclavian vein are patent with normal waveforms. No sonographic evidence of obstruction or thrombosis is seen. The visualized deep venous system of the proximal leftupper extremity is sonographically normal and compressible. IMPRESSION: 1. No sonographic evidence for deep venous thrombosis in the visualized segments of the left upper extremity.
[2017-10-26] MEDS: Tiotropium 18 mcg Cap For Inhalation INH SCH (09:53)
[2017-10-26] MEDS ORDERED: Fluticasone-Salmeterol 250-50mcg Diskus IH SCH (10:00)
--- NOTE | 2017-10-26 12:24 | RAD ---
Date of service: 10/26/2017 HISTORY: chest pain COMPARISON: 09/23/2017 FINDINGS: LUNGS: No active pulmonary disease. PLEURA: No significant pleural effusion identified, no pneumothorax apparent. CARDIOVASCULAR: Normal. OSSEOUS STRUCTURES: No significant abnormalities. VISUALIZED UPPER ABDOMEN: Normal. OTHER FINDINGS: None. IMPRESSION: No active disease.
[2017-10-26] MEDS: Lithium Carbonate ER Tab 450 MG PO SCH ×2 (12:53→17:38)
--- NOTE | 2017-10-26 15:36 | CARD ---
APPROVED REPORT Date of service: 10/25/2017 EKG Measurement Heart [id number] <Conclusion> Sinus rhythm with 1st degree AV block Nonspecific intraventricular block Cannot rule out Septal infarct, age undetermined T wave abnormality, consider lateral ischemia
[2017-10-26 15:43] LABS: TROPONIN I 0.02 ng/mL
[2017-10-26 16:02] LABS: ALB/GLOB RATIO 1.5 (1.1-1.8); ALT/SGPT 53 U/L (7-56); AST/SGOT 42 U/L (14-36); BLOOD UREA NITROGEN 39 mg/dL (7-21); CALCIUM 10.9 mg/dL (8.4-10.5); GFR AFRICAN-AMERICAN > 60; GFR NON-AFRICAN AMERICAN 57
[2017-10-26] MEDS ORDERED: QUEtiapine 200 mg XR Tab PO SCH (22:00)
--- NOTE | 2017-10-26 22:14 | CON ---
Copied To: Rosette Miguel MD Attending MD: Rosette Miguel MD DATE: 10/26/2017 HISTORY OF PRESENT ILLNESS: Shortly, the patient is a 57-year-old female with reported history of schizoaffective disorder, multiple psychiatric admissions in the past, multiple medical issues including coronary artery disease, quadruple bypass, CABG with stents, CHF, COPD, hypertension, and breast cancer. The patient was admitted on the medical site for evaluation of chest pain which is left-sided, psych consult was called for evaluation of depressive symptoms. The patient was seen and examined. 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 The patient has tendency of taking less medication than that was prescribed to her, has skipping the doses. Last admission on June, the patient was discharged under care of her daughter and the patient was planning to move into [place]. The patient seen and examined. The patient reported that she cannot stay with her daughter because she was not feeling safe there. The patient reported that she moves back to her old apartment. The patient still has paranoid ideations that her neighbor is stalking her. The patient also was making statement that her home health aide gave her meza to the people who changed the lockers and right now the patient is charged 200 dollars for unnecessary work. The patient had difficult to stay focused, to concentrate, tangential and circumstantial thought process, but overall was very pleasant. The patient reported that she is compliant with the medications. The patient reported that yesterday she went to crisis intervention at [place]. The patient reports that she is compliant with the medication, but at times the patient is taking doses than it was prescribed to her. The patient still goes to [facility] and seeing her doctor but as per patient right now she does not have any counselor. The patient reports that she fills her medication in [facility]. We will try to contact [facility] in order to obtain medication list. Meanwhile, last admission medication list was reviewed. The patient was on Lamictal 100 mg twice a day, Seroquel 300 mg at the morning time and 400 mg at the nighttime. The patient reported that she is taking her medication and everything is prescribed to her, but as per medication list, no Seroquel was started and no Lamictal was started for the patient. Pharmacy faxed over medication list for the patient. The patient was on Lamictal 100 mg twice a day, Seroquel extended release 300 mg at the morning time and 400 mg at the nighttime, Vistaril 25 mg daily as needed. All medications were verified last month. The patient also was on [place] extended release 900 mg daily. The rest as on medical staff. Aldactone, Plavix, Advair, Singulair, amlodipine, Avapro. We will resume [place]. We will resume lamotrigine and Seroquel as well as Vistaril. VITAL SIGNS: Reviewed. Temperature 97.8, pulse is 96, blood pressure 144/78, respiration 20, oxygen saturation is 95. MEDICATIONS: Reviewed. Norvasc, Brovana, aspirin, Lipitor, Pulmicort, Plavix, Pepcid, Lasix, Lopressor, Singulair, K-Dur, Aldactone and Spiriva. LABORATORY DATA: Reviewed. Coagulation reviewed. Chemistry reviewed. Potassium 2.9, which is low. Toxicology reviewed, lithium 0.5. MENTAL STATUS EXAMINATION: The patient presented to be alert and oriented, good personal hygiene. Good eye contact. Speech was overproductive but not pressured. Mood described, "I am just depressed because a lot of things going on". Affect was reactive, mood congruent. Thought process, circumstantial and tangential. Thought content, the patient denied visual, auditory, or tactile hallucinations. Denied paranoid ideation, but the patient presented to be disorganized, paranoid, feeling that she was stalked by her neighbor and also some conspiracy going on and also she was upset that her home health aide was giving her keys to some people who change the lockers. IMPRESSION: As per history, schizoaffective disorder, bipolar type. Patient has multiple medical issues. PLAN: [place] will be resumed. Lamictal will be resumed. Seroquel will be resumed. Vistaril will be resumed. Pharmacy was contacted, [facility] [phone]. The patient's psychiatrist is , and the patient was compliant with the medication, filled medication last month. We will follow up and advise accordingly. Most likely, this fiction and nonfiction writer prose will offer the patient admission because the patient presented to be disorganized. Thank you very much for letting me participate in care of your patient. Rosette Miguel MD [place]INA
--- NOTE | 2017-10-26 22:49 | CON ---
Copied To: Ponce Sawyer MD Attending MD: Ponce Sawyer MD DATE: 10/26/2017 SERVICE: Cardiology. REASON FOR THE CONSULTATION: Followup chest pain underneath the left breast, increases when taking a deep breath on pressing, history of coronary artery disease, CABG. BRIEF CLINICAL HISTORY: A 57-year-old female with past medical history significant for breast CA, status post lumpectomy; history of coronary artery disease; history of CABG; history of PTCA and stent in the past. Came in with left-sided chest pain underneath the left breast, sharp in nature and increases on twisting the body and movement and taking a deep breath and also on deep palpation. PAST MEDICAL HISTORY: Past history significant for depression; breast CA, status post lumpectomy; history of coronary artery disease; history of CABG; history of diabetes; history of obesity; history of COPD; history of active tobacco abuse. PAST SURGICAL HISTORY: Significant for coronary artery bypass surgery in 2009. RECENT CARDIAC WORKUP: As follows; the patient's last catheterization on 08/22/2012 that shows [place] triple vessel disease, left main 60% stenosis, bifurcates LAD and circumflex LAD 100% occlusion, circ 80% proximally occluded, distal circ at 60% stenosis, RCA 100% occluded. Grafts are as follows; CONTE was not used, probably damaging harvesting and occluded. SVG to OM1 is patent. Saphenous venous graft connected to LAD patent, SVG to RCA patent. Ejection fraction 45%. Subsequently, the patient had a stress test in 2014 ejection 47%. Repeat stress test in 12/2015 ejection 37%. When compared from the previous deteriorations, LV function noted. The patient had most recent echo on 02/14/2017, Dr. Guzman's office, decreased LV function. Most recent stress test on 01/05/2017, ejection fraction 37%. Most recent MUGA on 02/18/2016, ejection fraction 35%. Then, the patient had repeat MUGA scan done on 09/21/2017 to assess the need for pacemaker defibrillator that shows ejection fraction of 45%. In compared with last study, 02/17/2013, there is improvement of LV contractility. Ejection fraction of 45% with MUGA dated 09/21/2017. The patient had an echocardiography done 09/21/2017 that shows ejection fraction 30-35%, moderate to severe hypokinesis of the mid anteroseptal wall. Moderate global hypokinesis of the LV, mitral regurgitation is mild to moderate. Trace to mild tricuspid regurgitation. RV systolic pressure 19. SOCIAL HISTORY: Active tobacco abuse. Denies any history of substance abuse or alcohol abuse. CURRENT MEDICATIONS THE PATIENT IS TAKING AT HOME: Lamictal, Norvasc, Aldactone, Seroquel, Singulair, Claritin, Lasix, Pepcid, Lexapro, Benadryl, Plavix, Lipitor. REVIEW OF SYSTEMS: As per HPI. PHYSICAL EXAMINATION: VITAL SIGNS: Height of the patient 5 feet 4 inches, weight of the patient 250 pounds, body mass index 42.9 kg/m2. Temperature afebrile, heart rate 96, blood pressure 144/78. HEENT: PERRLA. Extraocular muscles intact. NECK: Supple. No carotid bruit. No thyromegaly. CHEST: Clear to auscultation. HEART: S1 and S2 regular. ABDOMEN: Soft. EXTREMITIES: Clubbing and cyanosis negative. LABORATORY DATA: Blood workup as follows; WBC 8, hemoglobin 12.6, hematocrit 37.8, platelet count 192. Chemistry shows sodium 138, potassium 2.9, chloride 89, carbon dioxide 35, anion gap of 17, BUN 45, creatinine 1.1. Troponin 0.02. EKG shows normal sinus, LVH, intraventricular conduction delay. No acute ST-T changes noted. IMPRESSION: A 57-year-old female with past medical history significant for breast cancer, status post lumpectomy; history of coronary artery disease, status post coronary artery bypass graft, 3 vessels in 2009; history of catheterization and percutaneous transluminal coronary angioplasty. Last catheterization revealed patent saphenous vein graft to left anterior descending. Patent saphenous vein graft to obtuse marginal 1 and right coronary artery. Occluded left internal mammary artery harvesting. Last MUGA scan on 09/21/2017 shows ejection fraction 45%, which is improved from before. Mild to moderate mitral regurgitation. Trace to mild tricuspid regurgitation. Right ventricular systolic pressure 18. So far, the patient admitted here with complaint of chest pain, increases on taking a deep breath, on movement of the body, also very tender. Atypical chest pain. So far, troponin remains negative, though the patient is hypokalemic. RECOMMENDATIONS: Aggressively supplement potassium. When the potassium improves, the patient can be discharged home. Follow up repeat troponin and if remains negative, the patient can be discharged. Follow up as outpatient. Thank you, Dr. Casey for providing us the opportunity in taking care of the patient, Ethel Courtney. Ponce Sawyer MD cc: Precious Casey MD
[2017-10-26 23:27] VITALS: RESP 18
[2017-10-27 05:58] VITALS: O2SAT 95
[2017-10-27 07:24] LABS: ALB/GLOB RATIO 1.7 (1.1-1.8); ALBUMIN 5.1 g/dL (3.0-4.8); ALT/SGPT 46 U/L (7-56); AST/SGOT 35 U/L (14-36); BLOOD UREA NITROGEN 37 mg/dL (7-21); CALCIUM 11.4 mg/dL (8.4-10.5); GFR AFRICAN-AMERICAN > 60; GFR NON-AFRICAN AMERICAN 51
[2017-10-27] MEDS: Budesonide 0.5 mg/2 ml Inhal Susp UD IH SCH (08:02)
[2017-10-27] MEDS: Arformoterol 15 mcg/2 ml Inh Sol IH SCH (08:03)
[2017-10-27] MEDS: Lithium Carbonate ER Tab 450 MG PO SCH (09:16)
[2017-10-27] MEDS: Tiotropium 18 mcg Cap For Inhalation INH SCH (09:17)
[2017-10-27] MEDS ORDERED: Potassium Chloride 20 mEq ER Tab PO ONE (09:24)
[2017-10-27] MEDS ORDERED: QUEtiapine 300 mg XR Tab PO SCH (10:00)
[2017-10-27] MEDS ORDERED: Bisacodyl 5mg EC Tab PO ONE (10:32)
--- NOTE | 2017-10-27 11:27 | PN ---
Copied To: Ponce Sawyer MD Attending MD: Ponce Sawyer MD DATE: 10/27/2017 REASON FOR THE CONSULTATION: Followup chest pain underneath the left breast, coronary artery disease, history of CABG, history of PTCA in the past. SUBJECTIVE: The patient denies any chest pain, shortness of breath or any palpitations. OBJECTIVE: GENERAL: Not in any apparent distress. VITAL SIGNS: Temperature afebrile, heart rate 70, blood pressure 125/68. HEENT: PERRLA. Extraocular muscles intact. NECK: Supple. No carotid bruits or thyromegaly. CHEST: Clear to auscultation. HEART: S1, S2 regular. ABDOMEN: Soft. EXTREMITIES: Clubbing and cyanosis negative. LABORATORY DATA: Blood workup as follows: WBC 8, hemoglobin 12.5, hematocrit 37.8, platelet count 192. Chemistry shows sodium 138, potassium 3.6, chloride 90, carbon dioxide 33, anion gap of 18, BUN 37, creatinine 1.1. IMPRESSION: Atypical chest pain musculoskeletal, severe hypokalemia, history of coronary artery disease, history of coronary artery bypass graft, history of breast cancer, status post lumpectomy. Last MUGA scan on 09/21/2017 show ejection fraction of 45%. RECOMMENDATIONS: Aggressively supplement potassium, started on ibuprofen, we will discontinue telemetry. Upon discharge, we will follow up as an outpatient. Thank you, Dr. Casey, for providing us the opportunity in taking care of the patient, michael Walker to be discharged. Ponce Sawyer MD
[2017-10-27 12:57] VITALS: BP 108/62; TEMP 98.1
[2017-10-27 15:19] VITALS: PULSE 75
--- NOTE | 2017-10-27 19:42 | PN ---
Copied To: Rosette Miguel MD Attending MD: Rosette Miguel MD DATE: 10/27/2017 SUBJECTIVE: In short, the patient is 57-year-old female, reported history of schizoaffective disorder, multiple psychiatric admissions in the past. The patient was admitted on the medical side for evaluation of left-sided chest pain. Psych consult was called for evaluation of medication and also the patient has history of mental illness. The patient was initially seen yesterday. All medications were confirmed with the patient's pharmacy and resumed. The patient was followed up today. The patient presented to be mildly paranoid, had impression that she is followed by males in the community. This is the patient's baseline. The patient denied being depressed. Denied thoughts of harming herself or others. The patient has scheduled appointment for psychotherapy as well as medication management at [facility]. The patient has appointment on 10/29/2017. VITAL SIGNS: Stable. MEDICATIONS: Reviewed. LABORATORY DATA: Reviewed. Discussed with medical art therapist. The patient is pleasant and cooperative. There is no behavioral issues. MENTAL STATUS EXAMINATION: The patient presented to be alert and oriented, pleasant, cooperative, mildly paranoid, but overall no aggression or agitation. Mood described as fine. Affect was reactive. Mood congruent. Thought process seems to be mildly disorganized, but seems to be at her baseline. Thought content, the patient denied thoughts of harming herself or others. Denied intents or plans. Denied feeling of hopelessness or helplessness. The patient has chronic paranoia. Insight and judgment seems to be fair. Impulses are well controlled. IMPRESSION: As per history, schizoaffective disorder. PLAN: This service writer advisor offered the patient admission because of paranoia and maybe adjustment of her medication, but the patient declined that offer. The patient said that she is compliant with her medication. She has enough medication at home, which was confirmed by the patient's pharmacy. The patient has followup appointment with [facility]. The patient adamantly denied thoughts of harming herself or others. The patient has future oriented plans. She wants to move into [place] with her daughter. Meanwhile, this service writer advisor feels that the patient pose no imminent danger to self or others. The patient was advised to come back to the hospital if she will feel unease, depressed or disorganized. Visually, the patient is compliant with that advise and each and every time she comes to the hospital looking for help, if she does not feel right. The patient has enough medication at home. The patient will be discharged from the hospital with followup appointment at [facility]. The patient also was provided with information at [facility]. This service writer advisor will sign off. Should you have any questions give me a call back. Rosette Miguel MD
--- NOTE | 2017-10-27 22:30 | CP.PCM.DIS ---
<Aron Hall - Last Filed: 10/27/17 22:21> Provider - Provider Date of Admission: 10/26/17 03:07 Attending physician: Precious Casey MD Primary care physician: Ari Osorio MD Consults: Psych - Dr. Miguel, [facility] - [facility] Time Spent in preparation of Discharge (in minutes): 40 Diagnosis - Discharge Diagnosis (1) Chest pain Status: Acute Priority: High (2) CHF (congestive heart failure) Status: Acute Priority: High (3) Hypokalemia Status: Acute Priority: High (4) Schizoaffective disorder Status: Chronic Priority: Medium (5) COPD (chronic obstructive pulmonary disease) Status: Chronic Priority: Low (6) HTN (hypertension) Status: Chronic Priority: Low (7) HLD (hyperlipidemia) Status: Chronic Priority: Low Hospital Course - Lab Results Lab Results: Most Recent Lab Values WBC 8.0 10^3/ul (4.5-11.0) D 10/26/17 07:40 RBC 4.30 10^6/uL (3.5-6.1) 10/26/17 07:40 Hgb 12.6 g/dL (12.0-16.0) 10/26/17 07:40 Hct 37.8 % (36.0-48.0) 10/26/17 07:40 MCV 87.9 fl (80.0-105.0) 10/26/17 07:40 MCH 29.3 pg (25.0-35.0) 10/26/17 07:40 MCHC 33.3 g/dl (31.0-37.0) 10/26/17 07:40 RDW 13.9 % (11.5-14.5) 10/26/17 07:40 Plt Count 192 10^3/uL (120.0-450.0) 10/26/17 07:40 MPV 10.3 fl (7.0-11.0) 10/26/17 07:40 Gran % 65.0 % (50.0-68.0) 10/26/17 07:40 Lymph % (Auto) 23.6 % (22.0-35.0) 10/26/17 07:40 Alfalfa % (Auto) 7.4 % (1.0-6.0) H 10/26/17 07:40 Eos % (Auto) 3.5 % (1.5-5.0) 10/26/17 07:40 Baso % (Auto) 0.5 % (0.0-3.0) 10/26/17 07:40 Gran # 5.18 (1.4-6.5) 10/26/17 07:40 Lymph # (Auto) 1.9 (1.2-3.4) 10/26/17 07:40 [place] # (Auto) 0.6 (0.1-0.6) 10/26/17 07:40 Eos # (Auto) 0.3 (0.0-0.7) 10/26/17 07:40 Baso # (Auto) 0.04 K/mm3 (0.0-2.0) 10/26/17 07:40 PT 11.4 SECONDS (9.4-12.5) 10/25/17 23:20 INR 1.00 10/25/17 23:20 APTT 27.7 Seconds (25.1-36.5) 10/25/17 23:20 Sodium 139 mmol/L (132-148) 10/27/17 06:30 Potassium 3.6 mmol/L (3.6-5.0) 10/27/17 06:30 Chloride 92 mmol/L (98-107) L 10/27/17 06:30 Carbon Dioxide 33 mmol/L (21-33) 10/27/17 06:30 Anion Gap 18 (10-20) 10/27/17 06:30 BUN 37 mg/dL (7-21) H 10/27/17 06:30 Creatinine 1.1 mg/dl (0.7-1.2) 10/27/17 06:30 Est GFR ( Amer) > 60 10/27/17 06:30 Est GFR (Non-Af Amer) 51 10/27/17 06:30 POC Glucose (mg/dL) 90 mg/dL (65-110) 10/27/17 11:41 Random Glucose 108 mg/dL (70-110) 10/27/17 06:30 Calcium 11.4 mg/dL (8.4-10.5) H 10/27/17 06:30 Phosphorus 2.8 mg/dL (2.5-4.5) 10/27/17 06:30 Magnesium 2.0 mg/dL (1.7-2.2) 10/27/17 06:30 Total Bilirubin 1.1 mg/dL (0.2-1.3) 10/27/17 06:30 AST 35 U/L (14-36) 10/27/17 06:30 ALT 46 U/L (7-56) 10/27/17 06:30 Alkaline Phosphatase 73 U/L (38-126) 10/27/17 06:30 Lactate Dehydrogenase 577 U/L (333-699) 10/25/17 23:20 Total Creatine Kinase 208 U/L (35-230) 10/25/17 23:20 Troponin I 0.02 ng/mL 10/26/17 15:15 NT-Pro-B Natriuret Pep 115 pg/mL (0-450) 10/26/17 07:40 Total Protein 8.1 g/dL (5.8-8.3) 10/27/17 06:30 Albumin 5.1 g/dL (3.0-4.8) H 10/27/17 06:30 Globulin 3.0 gm/dL 10/27/17 06:30 Albumin/Globulin Ratio 1.7 (1.1-1.8) 10/27/17 06:30 [place] 0.5 mmol/L (0.5-1.3) 10/26/17 07:30 - Hospital Course Hospital Course: Aron Hall DO 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 She described the pain as intermittent, 5-7/10, sharp in nature, positional , increased with twisting or turning trunk, decreased by staying still and morphine. She was also having complaints of LUE swelling as well as L arm pain. In the ED: Vitals were stable, EKG read with 1st degree AV block, LVH, and nonspecific ST/ T wave changes. Chest xray was negative for acute pathology, upper extremity ultrasound was found to be negative as well. Her first troponin was equivocal however her K+ was low at 2.5 She was given supplemental K+ and mag level was also drawn and wnl. Patient was subsequently admitted for chest pain/ acs r/o, LUE swelling, and hypokalemia. During remainder of hospital course, patient's troponins remained equivocal at 0.2, cardiology saw the patient and recommended she follow up as outpatient. [facility] saw the patient, and offered patient voluntary admission into psych unit however patient declined. Hypokalemia did improve, however levels remained below 3.0; repletion was maintained, and subsequently patient was brought to a stable level upon time of discharge. Upon morning of discharge, patient was voicing no new complaints. She stated that she felt well, denied any chest pain, palpitations, SOB, cough, noted significant improvement of her LUE edema. She was given the following instructions upon discharge: - You were admitted for chest pain work up to rule out acute coronary syndrome and hypokalemia - Please follow up with your pmd Dr. Osorio within 7 days of discharge - Please follow up with your belt puncher [facility]re within 7 days of discharge - Please continue taking your home medications as prescribed - Please start taking Potassium supplement - K-Dur 20 meq twice a day for 30 days after discharge - Please follow up with a basic metabolic panel lab to check your potassium level within 7 days of discharge - If you develop worsening symptoms or newly concerning symptoms, please return to the nearest emergency room Patient is medically optimized for discharge at this time. - Date & Time of H&P Date of H&P: 10/26/17 Time of H&P: 05:05 Discharge Exam - Head Exam Head Exam: ATRAUMATIC, NORMAL INSPECTION, NORMOCEPHALIC - Eye Exam Eye Exam: EOMI, Normal appearance, PERRL - ENT Exam ENT Exam: Mucous Membranes Moist - Respiratory Exam Respiratory Exam: Clear to PA & Lateral, NORMAL BREATHING PATTERN, UNREMARKABLE. absent: Rhonchi, Respiratory Distress, Stridor - Cardiovascular Exam Cardiovascular Exam: RRR, +S1, +S2. absent: Systolic Murmur - GI/Abdominal Exam GI & Abdominal Exam: Normal Bowel Sounds, Soft, Unremarkable. absent: Tenderness - Extremities Exam Extremities exam: pedal pulses present Additional comments: Left upper extremity in comparison to right upper extremity is relatively unremarkable. No signs of fluid lover load. Extremities warm with good pulses BL. LE pulses 2+ TP/DP with minimal LE Edema <+1 - Back Exam Back exam: absent: CVA tenderness (L), CVA tenderness (R) - Neurological Exam Neurological exam: Oriented x3 - Psychiatric Exam Psychiatric exam: Normal Affect, Normal Mood - Skin Skin Exam: Dry, Intact, Normal Color, Warm Discharge Plan - Discharge Medications Prescriptions: Potassium Chloride [K-Dur 20 mEq ER Tab] 20 meq PO BID 30 Days #60 tab - Follow Up Plan Condition: STABLE Disposition: HOME/ ROUTINE Instructions: Hypokalemia (DC), Chest Pain (DC) Additional Instructions: - You were admitted for chest pain work up to rule out acute coronary syndrome and hypokalemia - Please follow up with your pmd Dr. Osorio within 7 days of discharge - Please follow up with your belt puncher [facility] within 7 days of discharge - Please continue taking your home medications as prescribed - Please start taking Potassium supplement - K-Dur 20 meq twice a day for 30 days after discharge - Please follow up with a basic metabolic panel lab to check your potassium level within 7 days of discharge - If you develop worsening symptoms or newly concerning symptoms, please return to the nearest emergency room Referrals: Ari Osorio MD [Primary Care Provider] - <Ponce Riddle - Last Filed: 10/28/17 17:07> Provider - Provider Date of Admission: 10/26/17 03:07 Attending physician: Precious Casey MD Primary care physician: Ari Osorio MD Hospital Course - Lab Results Lab Results: Most Recent Lab Values WBC 8.0 10^3/ul (4.5-11.0) D 10/26/17 07:40 RBC 4.30 10^6/uL (3.5-6.1) 10/26/17 07:40 Hgb 12.6 g/dL (12.0-16.0) 10/26/17 07:40 Hct 37.8 % (36.0-48.0) 10/26/17 07:40 MCV 87.9 fl (80.0-105.0) 10/26/17 07:40 MCH 29.3 pg (25.0-35.0) 10/26/17 07:40 MCHC 33.3 g/dl (31.0-37.0) 10/26/17 07:40 RDW 13.9 % (11.5-14.5) 10/26/17 07:40 Plt Count 192 10^3/uL (120.0-450.0) 10/26/17 07:40 MPV 10.3 fl (7.0-11.0) 10/26/17 07:40 Gran % 65.0 % (50.0-68.0) 10/26/17 07:40 Lymph % (Auto) 23.6 % (22.0-35.0) 10/26/17 07:40 [place]alf[place] % (Auto) 7.4 % (1.0-6.0) H 10/26/17 07:40 Eos % (Auto) 3.5 % (1.5-5.0) 10/26/17 07:40 Baso % (Auto) 0.5 % (0.0-3.0) 10/26/17 07:40 Gran # 5.18 (1.4-6.5) 10/26/17 07:40 Lymph # (Auto) 1.9 (1.2-3.4) 10/26/17 07:40 [place] # (Auto) 0.6 (0.1-0.6) 10/26/17 07:40 Eos # (Auto) 0.3 (0.0-0.7) 10/26/17 07:40 Baso # (Auto) 0.04 K/mm3 (0.0-2.0) 10/26/17 07:40 PT 11.4 SECONDS (9.4-12.5) 10/25/17 23:20 INR 1.00 10/25/17 23:20 APTT 27.7 Seconds (25.1-36.5) 10/25/17 23:20 Sodium 139 mmol/L (132-148) 10/27/17 06:30 Potassium 3.6 mmol/L (3.6-5.0) 10/27/17 06:30 Chloride 92 mmol/L (98-107) L 10/27/17 06:30 Carbon Dioxide 33 mmol/L (21-33) 10/27/17 06:30 Anion Gap 18 (10-20) 10/27/17 06:30 BUN 37 mg/dL (7-21) H 10/27/17 06:30 Creatinine 1.1 mg/dl (0.7-1.2) 10/27/17 06:30 Est GFR ( Amer) > 60 10/27/17 06:30 Est GFR (Non-Af Amer) 51 10/27/17 06:30 POC Glucose (mg/dL) 90 mg/dL (65-110) 10/27/17 11:41 Random Glucose 108 mg/dL (70-110) 10/27/17 06:30 Calcium 11.4 mg/dL (8.4-10.5) H 10/27/17 06:30 Phosphorus 2.8 mg/dL (2.5-4.5) 10/27/17 06:30 Magnesium 2.0 mg/dL (1.7-2.2) 10/27/17 06:30 Total Bilirubin 1.1 mg/dL (0.2-1.3) 10/27/17 06:30 AST 35 U/L (14-36) 10/27/17 06:30 ALT 46 U/L (7-56) 10/27/17 06:30 Alkaline Phosphatase 73 U/L (38-126) 10/27/17 06:30 Lactate Dehydrogenase 577 U/L (333-699) 10/25/17 23:20 Total Creatine Kinase 208 U/L (35-230) 10/25/17 23:20 Troponin I 0.02 ng/mL 10/26/17 15:15 NT-Pro-B Natriuret Pep 115 pg/mL (0-450) 10/26/17 07:40 Total Protein 8.1 g/dL (5.8-8.3) 10/27/17 06:30 Albumin 5.1 g/dL (3.0-4.8) H 10/27/17 06:30 Globulin 3.0 gm/dL 10/27/17 06:30 Albumin/Globulin Ratio 1.7 (1.1-1.8) 10/27/17 06:30 Lamotrigine 2.1 mcg/mL (4.0-18.0) L 10/26/17 07:30 [place] 0.5 mmol/L (0.5-1.3) 10/26/17 07:30 Attending/Attestation - Attestation I have personally seen and examined this patient.: Yes I have fully participated in the care of the patient.: Yes I have reviewed all pertinent clinical information, including history, physical exam and plan: Yes Notes (Text): 10/28/17 17:02 Medical record note made by the resident after discussion with my direction and input after the patient was personally seen and examined by me. I have reviewed the chart and agree that the record accurately reflects by personal performance of the history, physical exam, data review, and medical decision-making, in the course for the patient. I have also personally directed the plan of care. 57 yrs old female with PMH of HTN, HLD, CABG,PTCA with stents, CHF, COPD, left Breast CA s/p lumpectomy was admitted with atypical chest pain and hypokalemia. Patient had chest wall tenderness, serial troponins were normal. Patient was evaluated by cardiology and outpatient stress rest has been recommenced Patient will follow up with PCP and cardiology . Patient is pain free at the time of discharge. Hypokalemia is resolved.Patient has been started on oral KCL. Patient will follow up with PCP and cardiology. Management plan was discussed in detail with patient. Education was provided.
== END 2017-10-27 15:28 | disposition home or self-care (01) ==
LOC: ED 22:57 → ERH 10-26 03:07 → 2RSO 10-26 05:10
PROVIDERS: ADMIT Internal Medicine; ATTEND Internal Medicine
DX: R07.89 Other chest pain (principal); E87.6 Hypokalemia; E11.9 Type 2 diabetes mellitus without complications; E78.5 Hyperlipidemia, unspecified; F25.0 Schizoaffective disorder, bipolar type; I11.0 Hypertensive heart disease with heart failure; I50.9 Heart failure, unspecified; I25.10 Atherosclerotic heart disease of native coronary artery without angina pectoris; I08.1 Rheumatic disorders of both mitral and tricuspid valves; I44.0 Atrioventricular block, first degree; I25.82 Chronic total occlusion of coronary artery; J44.9 Chronic obstructive pulmonary disease, unspecified; G47.30 Sleep apnea, unspecified; Z95.1 Presence of aortocoronary bypass graft; Z79.02 Long term (current) use of antithrombotics/antiplatelets; Z72.0 Tobacco use; Z95.5 Presence of coronary angioplasty implant and graft; Z85.3 Personal history of malignant neoplasm of breast
CPT/HCPCS: 36415; 71045; 80053; 80175; 80178; 82550; 82948; 83615; 83735; 83880; 84100; 84484; 85025; 85027; 85610; 85730; 93005; 93970; 93971; 94640; 94760; 96361; 96374; 99285; G0378; J2270; J3480; Q0177

== ENCOUNTER 2017-11-24 02:08 | Emergency (ER) | payer MEDICARE, OTHER ==
[2017-11-24 02:08] VITALS: PULSE 80; BMI 36.8
[2017-11-24 02:44] VITALS: PULSE 68; TEMP 98.1
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
[2017-11-24 03:47] LABS: BASO # 0.04 K/mm3 (0.0-2.0); BASO % 0.4 % (0.0-3.0); EOS # 0.4 (0.0-0.7); EOS % 4.5 % (1.5-5.0); GRAN # 6.43 (1.4-6.5); GRAN % 69.6 % (50.0-68.0); HEMOGLOBIN 11.6 g/dL (12.0-16.0); LYMPH # 1.8 (1.2-3.4); LYMPH % 19.6 % (22.0-35.0); MEAN CELL VOLUME 88.6 fl (80.0-105.0); MEAN CORPUSCULAR HEMOGLOBIN 30.1 pg (25.0-35.0); MEAN PLATELET VOLUME 9.7 fl (7.0-11.0); MONO # 0.6 (0.1-0.6); MONO % 5.9 % (1.0-6.0); RBC 3.85 10^6/uL (3.5-6.1); RED CELL DISTRIBUTION WIDTH 14.3 % (11.5-14.5); WHITE BLOOD COUNT 9.3 10^3/ul (4.5-11.0)
[2017-11-24 03:52] LABS: ALB/GLOB RATIO 1.7 (1.1-1.8); ALBUMIN 4.6 g/dL (3.0-4.8); CALCIUM 9.4 mg/dL (8.4-10.5)
[2017-11-24] MEDS ORDERED: Potassium Chloride 20 mEq ER Tab PO STA (03:55)
[2017-11-24 03:57] LABS: B-TYPE NATRIURETIC PEPTIDE 99.4 pg/mL (0-450); TROPONIN I 0.03 ng/mL
[2017-11-24 05:29] VITALS: BP 116/62; RESP 17; O2SAT 100
--- NOTE | 2017-11-24 15:32 | CARD ---
APPROVED REPORT Date of service: 11/24/2017 EKG Measurement Heart [id number] <Conclusion> Sinus rhythm with 1st degree AV block Left ventricular hypertrophy with QRS widening and repolarization abnormality Consider lateral ischemia Abnormal ECG
== END 2017-11-24 05:28 | disposition home or self-care (01) ==
LOC: ED 02:08
DX: R11.0 Nausea (principal); E87.6 Hypokalemia; R07.9 Chest pain, unspecified; E78.5 Hyperlipidemia, unspecified; I10 Essential (primary) hypertension; I25.10 Atherosclerotic heart disease of native coronary artery without angina pectoris; Z87.891 Personal history of nicotine dependence; Z85.3 Personal history of malignant neoplasm of breast; I50.9 Heart failure, unspecified
CPT/HCPCS: 80053; 83735; 83880; 84100; 84484; 85025; 93005; 96360; 99283; J3480; J7030

== ENCOUNTER 2017-12-04 01:13 | Emergency (ER) | payer MEDICARE, OTHER ==
[2017-12-04 01:14] VITALS: PULSE 80
[2017-12-04 01:28] VITALS: BMI 44.1
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
[2017-12-04 02:15] LABS: MEAN CELL VOLUME 89.4 fl (80.0-105.0); MEAN CORPUSCULAR HEMOGLOBIN 30.2 pg (25.0-35.0); MEAN CORPUSCULAR HGB CONC 33.8 g/dl (31.0-37.0); MEAN PLATELET VOLUME 9.8 fl (7.0-11.0); RBC 3.97 10^6/uL (3.5-6.1); WHITE BLOOD COUNT 8.6 10^3/ul (4.5-11.0)
[2017-12-04 02:21] LABS: INR 0.95; PARTIAL THROMBOPLASTIN TIME 29.5 Seconds (25.1-36.5); PROTHROMBIN TIME 10.8 SECONDS (9.4-12.5)
[2017-12-04 02:24] LABS: ALB/GLOB RATIO 1.7 (1.1-1.8); ALBUMIN 4.7 g/dL (3.0-4.8); ALT/SGPT 40 U/L (7-56); AST/SGOT 33 U/L (14-36); BLOOD UREA NITROGEN 24 mg/dL (7-21); CALCIUM 10.3 mg/dL (8.4-10.5); GFR NON-AFRICAN AMERICAN > 60
[2017-12-04 02:34] LABS: B-TYPE NATRIURETIC PEPTIDE 146 pg/mL (0-450); TROPONIN I 0.03 ng/mL
[2017-12-04] MEDS ORDERED: Potassium Chloride 20 mEq ER Tab PO STA (04:22)
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
--- NOTE | 2017-12-04 05:28 | CP.PCM.PN ---
Subjective - Date & Time of Evaluation Date of Evaluation: 12/04/17 Time of Evaluation: 05:26 - Subjective Subjective: 05.20 When I went to see patient , found out that she had signed out AMA. Objective - Vital Signs/Intake and Output Vital Signs (last 24 hours): Temp Pulse Resp BP Pulse Ox 97.6 F 68 17 110/56 L 98 12/04/17 01:32 12/04/17 03:49 12/04/17 03:49 12/04/17 03:49 12/04/17 03:49 - Medications Medications: Current Medications Amlodipine Besylate (Norvasc) 5 mg PO HS ART[facility] Arformoterol Tartrate (Brovana) 15 mcg IH [id number] ARTEMIO Aspirin (Ecotrin) 81 mg PO DAILY [facility] Atorvastatin Calcium (Lipitor) 20 mg PO HS [facility] Budesonide (Pulmicort Respules) 0.5 mg IH [id number] [facility] Clopidogrel Bisulfate (Plavix) 75 mg PO DAILY [facility] Escitalopram Oxalate (Lexapro) 10 mg PO DAILY [facility] Exemestane (Aromasin) 25 mg PO DAILY [facility] Famotidine (Pepcid) 40 mg PO DAILY [facility] Furosemide (Lasix) 40 mg PO BID [facility] Lamotrigine (Lamictal) 100 mg PO BID [facility] PRN Reason: Protocol [place] Carbonate ([place] Carbonate) 450 mg PO BID ARTEMIO Metoprolol Tartrate (Lopressor) 50 mg PO BID [facility] Montelukast Sodium (Singulair) 10 mg PO DAILY [facility] Potassium Chloride (K-Dur 20 Meq Er Tab) 20 meq PO BID [facility] Quetiapine Fumarate (Seroquel Xr) 300 mg PO DAILY [facility] PRN Reason: Protocol Spironolactone (Aldactone) 50 mg PO BID ARTEMIO - Labs Labs: PT 10.8 SECONDS (9.4-12.5) 12/04/17 02:00 INR 0.95 12/04/17 02:00 APTT 29.5 Seconds (25.1-36.5) 12/04/17 02:00
[2017-12-04 07:27] VITALS: BP 115/72; PULSE 72; RESP 16; TEMP 98; O2SAT 96
[2017-12-04] MEDS ORDERED: Budesonide 0.5 mg/2 ml Inhal Susp UD IH SCH (08:00)
[2017-12-04] MEDS ORDERED: Arformoterol 15 mcg/2 ml Inh Sol IH SCH (08:00)
--- NOTE | 2017-12-04 09:32 | CARD ---
APPROVED REPORT Date of service: 12/04/2017 EKG Measurement Heart [id number] <Conclusion> Sinus rhythm with 1st degree AV block Nonspecific intraventricular block T wave abnormality, consider inferolateral ischemia Abnormal ECG
[2017-12-04] MEDS ORDERED: QUEtiapine 300 mg XR Tab PO SCH (10:00)
[2017-12-04] MEDS ORDERED: Potassium Chloride 20 mEq ER Tab PO SCH (10:00)
[2017-12-04] MEDS ORDERED: Lithium Carbonate ER Tab 450 MG PO SCH (10:00)
--- NOTE | 2017-12-04 10:48 | RAD ---
Date of service: 12/04/2017 HISTORY: chest pain COMPARISON: 10/26/2017 FINDINGS: LUNGS: No active pulmonary disease. PLEURA: No significant pleural effusion identified, no pneumothorax apparent. CARDIOVASCULAR: Mild cardiomegaly OSSEOUS STRUCTURES: Sternal wires VISUALIZED UPPER ABDOMEN: Normal. OTHER FINDINGS: None. IMPRESSION: No active disease.
== END 2017-12-04 05:15 | disposition left against medical advice (07) ==
LOC: ED 01:13 → UNDOADMOB 04:53 → ERH 04:53
DX: R07.9 Chest pain, unspecified (principal); I25.10 Atherosclerotic heart disease of native coronary artery without angina pectoris; I11.0 Hypertensive heart disease with heart failure; I50.9 Heart failure, unspecified; Z95.1 Presence of aortocoronary bypass graft; Z87.891 Personal history of nicotine dependence

== ENCOUNTER 2018-01-29 04:25 | Emergency (ER) | payer MEDICARE, OTHER ==
[2018-01-29 04:25] VITALS: PULSE 80
[2018-01-29 04:34] VITALS: BMI 42.9
[2018-01-29 04:37] VITALS: RESP 18; TEMP 98.4; O2SAT 100
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
[2018-01-29 06:57] VITALS: BP 130/78; PULSE 95
--- NOTE | 2018-01-29 10:31 | RAD ---
Date of service: 01/29/2018 PROCEDURE: Left Foot Radiographs. HISTORY: injury COMPARISON: None. FINDINGS: BONES: Bone alignment and mineralization are normal. There is no acute displaced fracture or bone destruction. There is a large plantar calcaneal spur. There are accessory ossifications centers medial to the navicular and lateral to the cuboid. JOINTS: Normal. SOFT TISSUES: There is severe dorsal soft tissue swelling OTHER FINDINGS: None. IMPRESSION: Severe dorsal soft tissue swelling. No acute displaced fracture or dislocation.
--- NOTE | 2018-01-29 10:39 | RAD ---
Date of service: 01/29/2018 PROCEDURE: Bilateral Ankle Radiographs. HISTORY: injury COMPARISON: None available. FINDINGS: BONES: Right Ankle: Bone alignment and mineralization are normal. There is no acute displaced fracture or bone destruction. There is a small plantar calcaneal spur. Left Ankle: Bone alignment and mineralization are normal. There is no acute displaced fracture or bone destruction. There is a large plantar calcaneal spur. JOINTS: Right Ankle: Normal. No osteoarthritis. Ankle mortise maintained. Talar dome intact. Left Ankle: Normal. No osteoarthritis. Ankle mortise maintained. Talar dome intact. SOFT TISSUES: Right Ankle: Mild periarticular soft tissue swelling. Left Ankle: Severe periarticular soft tissue swelling. OTHER FINDINGS: None. IMPRESSION: No acute fracture or dislocation. Mild right and severe left periarticular soft tissue swelling.
== END 2018-01-29 06:55 | disposition home or self-care (01) ==
LOC: ED 04:25
DX: S93.402A Sprain of unspecified ligament of left ankle, initial encounter (principal); X50.1XXA Overexertion from prolonged static or awkward postures, initial encounter; Y92.9 Unspecified place or not applicable
CPT/HCPCS: 73610; 73630; 96372; 99283; J1885

== ENCOUNTER 2018-02-02 00:32 | Observation (INO) | payer MEDICARE, OTHER ==
[2018-02-02 00:33] VITALS: PULSE 80; BMI 42.9
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
[2018-02-02 04:55] LABS: BASO # 0.03 K/mm3 (0.0-2.0); BASO % 0.2 % (0.0-3.0); EOS # 0.2 (0.0-0.7); EOS % 1.9 % (1.5-5.0); GRAN # 9.27 (1.4-6.5); GRAN % 77.1 % (50.0-68.0); HEMOGLOBIN 10.2 g/dL (12.0-16.0); LYMPH # 1.8 (1.2-3.4); LYMPH % 15.1 % (22.0-35.0); MEAN CELL VOLUME 89.5 fl (80.0-105.0); MEAN CORPUSCULAR HEMOGLOBIN 29.7 pg (25.0-35.0); MEAN CORPUSCULAR HGB CONC 33.2 g/dl (31.0-37.0); MEAN PLATELET VOLUME 10.1 fl (7.0-11.0); MONO # 0.7 (0.1-0.6); MONO % 5.7 % (1.0-6.0); RBC 3.43 10^6/uL (3.5-6.1); RED CELL DISTRIBUTION WIDTH 14.1 % (11.5-14.5)
[2018-02-02 05:11] LABS: ALB/GLOB RATIO 1.3 (1.1-1.8); ALBUMIN 4.2 g/dL (3.0-4.8); ALT/SGPT 37 U/L (7-56); AST/SGOT 30 U/L (14-36); BLOOD UREA NITROGEN 11 mg/dL (7-21); CALCIUM 10.2 mg/dL (8.4-10.5); GFR NON-AFRICAN AMERICAN 57
[2018-02-02 05:22] LABS: B-TYPE NATRIURETIC PEPTIDE 603 pg/mL (0-450); TROPONIN I 0.01 ng/mL
[2018-02-02] MEDS ORDERED: Potassium Chloride 20 mEq ER Tab PO STA (05:40)
[2018-02-02] MEDS ORDERED: Vancomycin 1gm in NS 250ml 1 GM/250 ML BAG IVPB STA (05:40)
--- NOTE | 2018-02-02 10:00 | RAD ---
Date of service: 02/02/2018 HISTORY: sob, leg swelling COMPARISON: 12/04/2017 FINDINGS: LUNGS: No active pulmonary disease. PLEURA: No significant pleural effusion identified, no pneumothorax apparent. CARDIOVASCULAR: No aortic atherosclerotic calcification present. Mild cardiomegaly no pulmonary vascular congestion. OSSEOUS STRUCTURES: Sternal wires VISUALIZED UPPER ABDOMEN: Normal. OTHER FINDINGS: None. IMPRESSION: No active disease.
[2018-02-02] MEDS: Enoxaparin 40 mg Syringe SC SCH (10:44)
[2018-02-02] MEDS: QUEtiapine 300 mg XR Tab PO SCH (10:45)
--- NOTE | 2018-02-02 12:40 | CARD ---
APPROVED REPORT Date of service: 02/02/2018 EKG Measurement Heart [id number] <Conclusion> Sinus rhythm with 1st degree AV block Left ventricular hypertrophy with QRS widening and repolarization abnormality Abnormal ECG
[2018-02-02] MEDS ORDERED: Albuterol-Ipratrop 3 mg / 0.5 (3 ml) UD IH SCH (14:00)
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
[2018-02-02 17:29] VITALS: TEMP 97.7
[2018-02-02] MEDS: Potassium Chloride 20 mEq ER Tab PO SCH (18:25)
[2018-02-02] MEDS: Lithium Carbonate ER Tab 450 MG PO SCH (18:35)
[2018-02-02] MEDS: Hydrocerin(120 gm) TOP SCH (18:45)
[2018-02-02] MEDS: Albuterol-Ipratrop 3 mg / 0.5 (3 ml) UD IH SCH (19:28)
[2018-02-02] MEDS: Arformoterol 15 mcg/2 ml Inh Sol IH SCH (19:28)
[2018-02-03 07:36] LABS: BLOOD UREA NITROGEN 14 mg/dL (7-21); CALCIUM 9.5 mg/dL (8.4-10.5); GFR NON-AFRICAN AMERICAN 57
[2018-02-03] MEDS: Albuterol-Ipratrop 3 mg / 0.5 (3 ml) UD IH SCH ×2 (08:31→11:33)
[2018-02-03] MEDS: Arformoterol 15 mcg/2 ml Inh Sol IH SCH (08:31)
[2018-02-03 08:55] VITALS: BP 138/68; RESP 18; O2SAT 99
[2018-02-03] MEDS: Potassium Chloride 20 mEq ER Tab PO SCH (09:56)
[2018-02-03] MEDS: QUEtiapine 300 mg XR Tab PO SCH (09:58)
[2018-02-03] MEDS: Enoxaparin 40 mg Syringe SC SCH (10:00)
[2018-02-03 11:31] VITALS: PULSE 95
[2018-02-03] MEDS: Hydrocerin(120 gm) TOP SCH (12:53)
[2018-02-03] MEDS: Lithium Carbonate ER Tab 450 MG PO SCH (12:54)
--- NOTE | 2018-02-03 18:48 | HP ---
DATE OF EXAM: 02/02/2018 The patient came into the hospital because of lower extremity pain, swelling and she twisted at home. HISTORY OF PRESENT ILLNESS: This is 58-year-old female, morbidly obese, history of COPD, CHF, coronary artery disease, bypass surgery, breast cancer who came into the hospital with both lower extremity swelling, edema and pain and some . She also mentioned that she twisted in her both legs at home and she tried to get them casted as outpatient to help her feel better, but the patient could not do that and she could not walk. She has difficulty walking because of her leg pain and swelling and she came to the ER for evaluation. She denied any fever, chills, nausea, vomiting, syncope or any chest pain. PAST MEDICAL HISTORY: As I mentioned before, she does have history of breast cancer, coronary artery disease with bypass surgery, peripheral vascular disease in the past, she also had a history of morbid obesity, bipolar disorder, COPD, hypercholesterolemia and hypertension. ALLERGIES: SHE HAS NO KNOWN ALLERGIES. SOCIAL HISTORY: She lives by herself, she has a daughter, supportive, but she is away in [place]. She does not smoke. No drinking. No history of drug abuse. HOME MEDICATIONS: Usually, she takes Lamictal 100 mg b.i.d., Norvasc 5 mg, Ultram p.r.n. for pain, Combivent, Aldactone 50 mg b.i.d., Seroquel 400 mg at bedtime, Seroquel XR 300 mg p.o. daily, potassium 20 .b.i.d., Singulair 10 mg, Lopressor 50 mg b.i.d., Claritin 10 mg, lithium 450 mg p.o. b.i.d., Lasix 40 mg b.i.d., Advair , Aromasin 25 mg p.o. daily, Lexapro 10 mg p.o. daily, Benadryl 25 mg, Plavix 75 mg, Lipitor 20 mg and aspirin 81 mg. REVIEW OF SYSTEMS: She does complain of shoulder pain. She does have a history of rotator cuff tear and she also complains of shoulder pain, coughing on and off. She does complain of knee pain and pain in her legs. She also complain of anxiety. She feels anxious and sometimes she feels depressed, but currently, the patient has no depression and has no suicidal thoughts, seems stable. She is just concerned about her lower extremity pain. PHYSICAL EXAMINATION: VITAL SIGNS: On 02/02/2018, temperature 97.7, heart rate 80, blood pressure 112/64, respiration 20 and saturation 98%. HEAD AND NECK: Normal. No JVD. No thyromegaly. CHEST: Clear bilaterally. CARDIAC: First sound and second sound normal. No murmur, rub, or gallop. ABDOMEN: Obese and nontender. EXTREMITIES: Raise both legs, perhaps some swelling around the ankles and the dorsal foot area with some warmness, but swelling up to the ankle, no redness. She is tender on touching her foot around the ankle area, but it seems moving passively in all directions. No redness and no ulcerations. NEUROLOGIC: Normal. LABORATORY DATA: Sodium 137, potassium 3.3, chloride 100, bicarb 28, BUN 11 and creatinine 1. Liver function test is normal. Her BNP is 603. Albumin and globulin are normal and albumin-globulin ratio is normal. Liver function tests are normal. White count 12,000, hemoglobin 10.2, hematocrit 30.7 and platelets 280. We will get the rest of the tests. She also had venous Doppler of both lower extremity which was negative for clot. She also had an EKG which shows sinus rhythm, LVH and first-degree AV block. The QT interval here is 440 QTc. Chest x-ray, no active disease. IMPRESSION AND PLAN: This is a 58-year-old female with history of chronic obstructive pulmonary disease, congestive heart failure, coronary artery disease, bypass surgery, breast cancer on multiple medication, came in with leg swelling, pain and history of trauma and twisting her legs. It does look like the patient having cellulitis at this time. We will admit the patient for observation and consultation with another help desk consultant and monitor her condition. We will put the patient back on her previous medications, psych medications, blood pressure medicines, and nebulizers treatment, and we will follow up clinically. We have got a Podiatry consult. We have got Infectious Disease consultations. She received 1 g Rocephin and we are going to follow up on that. We will repeat lab in the morning. ADMITTING DIAGNOSES: 1. Bilateral ankle swelling. 2. Questionable cellulitis, both lower extremities, less likely. We will monitor. Repeat CBC in the morning. 3. Bilateral leg sprain. 4. Chronic obstructive pulmonary disease, morbid obesity, hypertension and bypass surgery, stable. I will continue current medication. Continue Lasix IV, potassium, Aldactone, monitor electrolytes, repeat labs in the morning and we will followup clinically. Ari Osorio MD
--- NOTE | 2018-02-03 20:43 | PN ---
DATE: 02/03/2018 SUBJECTIVE: The patient is in bed, in no acute distress, nontoxic. OBJECTIVE: VITAL SIGNS: Temperature is 97, blood pressure is 130/60, and respiratory rate of 18. HEENT: Unremarkable. NECK: Supple. LUNGS: Have decreased breath sounds. HEART: Normal S1 and S2. ABDOMEN: Soft. LABORATORY DATA: Reveals a white count of 12,000, hemoglobin of 10, and platelets of 280,000. Chemistries reveals a BUN of 14 and creatinine of 1. ASSESSMENT AND PLAN: This is a 58-year-old female who was seen earlier this morning in [facility] with a history of coronary artery disease and coronary artery bypass graft, chronic obstructive lung disease, chronic congestive heart failure, hypertension, and bipolar admitted with bilateral lower extremity swelling and no evidence of cellulitis and off of antibiotics and cultures negative. Kaz Matias MD
--- NOTE | 2018-02-04 13:19 | DS ---
HISTORY OF PRESENT ILLNESS: The patient admitted with edema and redness of both lower extremity and mild strain on the right leg; however, the patient seems stable, seen by ID consult and podiatry. IV Lasix was given, leg elevation was done, the patient seems stable; has no new complaint and was discharged and she has a venous Doppler of both legs and it was negative, and was discharged on 02/03/2018. PHYSICAL EXAMINATION: VITAL SIGNS: Temperature 97.7, heart rate 84, blood pressure 138/60, respiration 18, and saturation 99%. HEAD AND NECK: Normal. No JVD. No thyromegaly. CHEST: Clear bilateral. CARDIAC: First sound and second sound normal. ABDOMEN: Soft and nontender. EXTREMITIES: Mild edema in the foot area. NEUROLOGIC: Normal. LABORATORY DATA: Her laboratory studies 12,000 on admission, hemoglobin 10.2, hematocrit 38.7 and platelets is 280,000. Chemistry; sodium 137, potassium 3.3, chloride 100, bicarb 28, BUN 11 and creatinine 1. Liver function test is normal. ProBNP is 603. Repeat lab is normal. The patient is seen by ID consult, podiatry consult and venous Doppler negative and she is afebrile. We will discharge home. DISCHARGE DIAGNOSES: 1. Edema, lower extremity. Continue Lasix b.i.d. Keep the leg elevated, elastic stocking. 2. Hypertension. 3. Coronary artery disease. 4. Bipolar disorder. 5. Morbid obesity. 6. Hypercholesteremia. 7. Anemia. PLAN: The patient advised to go for colonoscopy and seems noncompliant. She has been given a prescription to go for colonoscopy. We will continue all her medication including Norvasc 5 mg at bedtime, Tramadol p.r.n. for a few days, nebulizer treatment Combivent and Symbicort. She also is getting Aldactone 50 b.i.d., Lasix 40 b.i.d., Seroquel 400 at bedtime, Seroquel XR 300 p.o. daily; and she is getting Benadryl 25 p.r.n., Plavix 75, aspirin 81, Lamictal 100 b.i.d., Singulair 10, Lopressor 50 b.i.d., Claritin 10, [place] 450 b.i.d., Pepcid 40 daily, Aromasin 25 p.o. daily, Lexapro 10 mg p.o. daily, and Lipitor 20 at bedtime. Continue current therapy. Followup in the office within a week. Ari Osorio MD
== END 2018-02-03 14:21 | disposition home or self-care (01) ==
LOC: ED 00:32 → ERH 05:44 → 3RSO 08:21
PROVIDERS: ADMIT Internal Medicine; ATTEND Internal Medicine
DX: M79.89 Other specified soft tissue disorders (principal); I11.0 Hypertensive heart disease with heart failure; I50.9 Heart failure, unspecified; J44.1 Chronic obstructive pulmonary disease with (acute) exacerbation; G47.33 Obstructive sleep apnea (adult) (pediatric); F43.10 Post-traumatic stress disorder, unspecified; E78.5 Hyperlipidemia, unspecified; F31.9 Bipolar disorder, unspecified; E78.00 Pure hypercholesterolemia, unspecified; I25.10 Atherosclerotic heart disease of native coronary artery without angina pectoris; I73.9 Peripheral vascular disease, unspecified; E66.01 Morbid (severe) obesity due to excess calories; Z68.41 Body mass index [BMI] 40.0-44.9, adult; Z85.3 Personal history of malignant neoplasm of breast; Z95.1 Presence of aortocoronary bypass graft; Z95.5 Presence of coronary angioplasty implant and graft; Z87.891 Personal history of nicotine dependence
CPT/HCPCS: 36415; 71045; 80048; 80053; 82550; 83615; 83735; 83880; 84100; 84484; 85025; 87040; 93005; 93970; 94640; 94760; 96374; 99285; G0378; J1650; J1885; J1940